=== PATIENT | male | born 1990 | race Caucasian/White ===

== ENCOUNTER 2016-12-06 13:16 | Emergency (ER) | payer OTHER ==
[2016-12-06] MEDS ORDERED: KETOROLAC 30 MG/ML 1 ML VIAL IVP STA ×2 (14:25→15:56)
[2016-12-06] MEDS ORDERED: SODIUM CHLORIDE 0.9% 1,000 ML IV STA ×2 (14:25)
--- NOTE | 2016-12-06 14:33 | ED ---
Headache HPI - General Chief Complaint: Headache Stated Complaint: Headache/x4 Time Seen by Provider: 12/06/16 14:00 Source: patient, RN notes reviewed, old records reviewed Mode of arrival: ambulatory Limitations: no limitations - History of Present Illness Initial Comments: This is a 26-year-old male with a benign past medical history states she's had a headache for the past 4 days frontal nature also some occipital pain sharp 10/ 10 severity. Associated with some nausea and numbness of both hands over the ulnar distribution fever decreased oral intake. No dysuria no hematuria he does complain of being thirsty all time and no history of polyuria no dysuria. No cough no phlegm production no earache sore throat rhinorrhea. Patient was seen at [facility] ER yesterday and Toradol Benadryl and ranitidine and sent home. Patient is back today for complaint claims as stated above. He also complains some epigastric discomfort. H MD Complaint: headache, other - Related Data Home Medications Medication Instructions Recorded Confirmed HYDROcodone/APAP 7.5-325MG [[place] 1 tab PO TID PRN 02/03/15 12/06/16 7.5-325] Albuterol Inhaler [Ventolin Hfa 1 - 2 puff INHALATION RT-Q6H PRN 12/06/16 Inhaler] Aspirin/Acetaminophen/Caffeine 2 tab PO BID PRN 12/06/16 12/06/16 [Excedrin Extra Strength Caplet] Previous Rx's Medication Instructions Recorded Cephalexin [Keflex] 500 mg PO Q6HR #40 cap 12/06/16 Hydrocodone/Acetaminophen [[place] 1 each PO Q6HR PRN #20 tab 12/06/16 5-325] Ibuprofen 800 mg PO Q6HR PRN #20 tablet 12/06/16 Allergies Allergy/AdvReac Type Severity Reaction Status Date / Time Penicillins Allergy Unknown Verified 12/06/16 14:00 Childhood Review of Systems ROS Statement: Those systems with pertinent positive or pertinent negative responses have been documented in the HPI. ROS Other: All systems not noted in ROS Statement are negative. Past Medical History Additional Past Medical History / Comment(s): migraines History of Any Multi-Drug Resistant Organisms: None Reported Past Surgical History: No Surgical Hx Reported Past Psychological History: No Psychological Hx Reported Smoking Status: Current every day smoker Past Alcohol Use History: Occasional Past Drug Use History: None Reported General Exam - General Exam Comments Initial Comments: This is a well-developed well-nourished awake alert oriented 3 patient the patient does smoke and does admit to smoking cigarettes and only to the emergency department today. Limitations: no limitations General appearance: alert, anxious Head exam: Present: atraumatic, normocephalic, normal inspection, other ( Tenderness to percussion over the frontal sinuses.) Eye exam: Present: normal appearance, PERRL, EOMI. Absent: scleral icterus, conjunctival injection, periorbital swelling ENT exam: Present: mucous membranes dry, other (Mild posterior pharyngeal hyperemia no exudates.) Neck exam: Present: normal inspection, tenderness (Mild tenderness over the left trapezius no spinous process tenderness. Range of motion no meningeal signs), full ROM. Absent: meningismus, lymphadenopathy Respiratory exam: Present: normal lung sounds bilaterally. Absent: respiratory distress, wheezes, rales, rhonchi, stridor Cardiovascular Exam: Present: normal rhythm, tachycardia, normal heart sounds. Absent: systolic murmur, diastolic murmur, rubs, gallop, clicks GI/Abdominal exam: Present: soft, normal bowel sounds, other (Obese abdomen). Absent: distended, tenderness, guarding, rebound, rigid, pulsatile mass, hernia Rectal exam: Present: deferred Extremities exam: Present: normal inspection, full ROM, normal capillary refill. Absent: tenderness, pedal edema, joint swelling, calf tenderness Back exam: Present: normal inspection Neurological exam: Present: alert, oriented X3, CN II-XII intact Psychiatric exam: Present: normal affect, normal mood Skin exam: Present: warm, dry, intact, normal color. Absent: rash Course Vital Signs 12/06/16 12/06/16 12/06/16 13:46 14:25 15:09 Temperature 100.6 F H 102 F H 100.6 F H Pulse Rate 117 H 103 H Respiratory 18 18 Rate Blood Pressure 137/78 137/68 O2 Sat by Pulse 98 99 Oximetry 12/06/16 12/06/16 16:30 17:32 Temperature 99.4 F 98.9 F Pulse Rate 89 Respiratory 16 Rate Blood Pressure 137/69 O2 Sat by Pulse 95 Oximetry - Reevaluation(s) Reevaluation #1: 12/06/16 15:58 Patient states she's gotten no relief thus far the headache. He still does have left trapezius tenderness palpation no midline neck tenderness. Reevaluation #2: 12/06/16 18:11 We did discuss smoking cessation and risks of smoking and the need to stop. He told conversation lasted 3.1 minutes Reevaluation #3: 12/06/16 18:15 The patient does take and take Keflex without any difficulty. He's only had problems with penicillin and cephalosporins. Medical Decision Making - Medical Decision Making Patient did finally get some relief from the headache we did a long discussion regarding lumbar puncture he does not want a lumbar puncture he would rather try antibiotics we did discuss that if she wasn't meningitis symptoms he would have he would rather not have a lumbar puncture. Patient was feeling improved he wants to be discharged he'll be discharged home with antibiotic and oral pain medication. He is follow-up with his doctor return when necessary - Lab Data Result diagrams: 12/06/16 14:55 12/06/16 14:55 Lab Results 12/06/16 12/06/16 12/06/16 Range/Units 14:55 14:55 14:55 WBC 3.8 (3.8-10.6) k/uL RBC 5.27 (4.30-5.90) m/uL Hgb 14.7 (13.0-17.5) gm/dL Hct 41.1 (39.0-53.0) % MCV 77.9 L (80.0-100.0) fL MCH 27.9 (25.0-35.0) pg MCHC 35.8 (31.0-37.0) g/dL RDW 13.3 (11.5-15.5) % Plt Count 112 L (150-450) k/uL Neutrophils % 65 % Lymphocytes % 27 % Monocytes % 3 % Eosinophils % 0 % Basophils % 1 % Neutrophils # 2.5 (1.3-7.7) k/uL Lymphocytes # 1.0 (1.0-4.8) k/uL Monocytes # 0.1 (0-1.0) k/uL Eosinophils # 0.0 (0-0.7) k/uL Basophils # 0.0 (0-0.2) k/uL Sodium 131 L (137-145) mmol/L Potassium 3.5 (3.5-5.1) mmol/L Chloride 97 L (98-107) mmol/L Carbon Dioxide 25 (22-30) mmol/L Anion Gap 9 mmol/L BUN 5 L (9-20) mg/dL Creatinine 0.82 (0.66-1.25) mg/dL Est GFR (MDRD) Af Amer >60 (>60 ml/min/1.73 sqM) Est GFR (MDRD) Non-Af >60 (>60 ml/min/1.73 sqM) Glucose 229 H (74-99) mg/dL Plasma Lactic Acid Selwyn 1.1 (0.7-2.0) mmol/L Calcium 8.0 L (8.4-10.2) mg/dL Magnesium 1.4 L (1.6-2.3) mg/dL Total Bilirubin 0.6 (0.2-1.3) mg/dL AST 75 H (17-59) U/L ALT 101 H (21-72) U/L Alkaline Phosphatase 35 L (38-126) U/L Total Protein 6.6 (6.3-8.2) g/dL Albumin 3.5 (3.5-5.0) g/dL Amylase <30 L (30-110) U/L Lipase 44 (23-300) U/L Urine Color Urine Appearance (Clear) Urine pH (5.0-8.0) Ur Specific Mead (1.001-1.035) Urine Protein (Negative) Urine Glucose (UA) (Negative) Urine Ketones (Negative) Urine Blood (Negative) Urine Nitrite (Negative) Urine Bilirubin (Negative) Urine Urobilinogen (<2.0) mg/dL Ur Leukocyte Esterase (Negative) Urine WBC (0-5) /hpf Urine Bacteria (None) /hpf Urine Mucus (None) /hpf 12/06/16 Range/Units 17:00 WBC (3.8-10.6) k/uL RBC (4.30-5.90) m/uL Hgb (13.0-17.5) gm/dL Hct (39.0-53.0) % MCV (80.0-100.0) fL MCH (25.0-35.0) pg MCHC (31.0-37.0) g/dL RDW (11.5-15.5) % Plt Count (150-450) k/uL Neutrophils % % Lymphocytes % % Monocytes % % Eosinophils % % Basophils % % Neutrophils # (1.3-7.7) k/uL Lymphocytes # (1.0-4.8) k/uL Monocytes # (0-1.0) k/uL Eosinophils # (0-0.7) k/uL Basophils # (0-0.2) k/uL Sodium (137-145) mmol/L Potassium (3.5-5.1) mmol/L Chloride (98-107) mmol/L Carbon Dioxide (22-30) mmol/L Anion Gap mmol/L BUN (9-20) mg/dL Creatinine (0.66-1.25) mg/dL Est GFR (MDRD) Af Amer (>60 ml/min/1.73 sqM) Est GFR (MDRD) Non-Af (>60 ml/min/1.73 sqM) Glucose (74-99) mg/dL Plasma Lactic Acid Selwyn (0.7-2.0) mmol/L Calcium (8.4-10.2) mg/dL Magnesium (1.6-2.3) mg/dL Total Bilirubin (0.2-1.3) mg/dL AST (17-59) U/L ALT (21-72) U/L Alkaline Phosphatase (38-126) U/L Total Protein (6.3-8.2) g/dL Albumin (3.5-5.0) g/dL Amylase (30-110) U/L Lipase (23-300) U/L Urine Color Yellow Urine Appearance Cloudy (Clear) Urine pH 6.0 (5.0-8.0) Ur Specific Mead 1.019 (1.001-1.035) Urine Protein 2+ H (Negative) Urine Glucose (UA) 3+ H (Negative) Urine Ketones Negative (Negative) Urine Blood Negative (Negative) Urine Nitrite Negative (Negative) Urine Bilirubin Negative (Negative) Urine Urobilinogen 3.0 (<2.0) mg/dL Ur Leukocyte Esterase Negative (Negative) Urine WBC 5 (0-5) /hpf Urine Bacteria Rare H (None) /hpf Urine Mucus Rare H (None) /hpf - Radiology Data Radiology results: report reviewed (I did review the imaging and reports there is some evidence of sinusitis brain scan looks negative x-ray show no definite acute findings there is some evidence of peribronchial cuffing patient has not really had a cough.), image reviewed Disposition Clinical Impression: Viral syndrome, Headache, Febrile illness, acute, Musculoskeletal pain Disposition: HOME SELF-CARE Condition: Good Instructions: Acute Headache (ED), Viral Syndrome (ED), Fever in Adults (ED) Prescriptions: Cephalexin [Keflex] 500 mg PO Q6HR #40 cap Hydrocodone/Acetaminophen [[place] 5-325] 1 each PO Q6HR PRN #20 tab PRN Reason: Pain Ibuprofen 800 mg PO Q6HR PRN #20 tablet PRN Reason: Pain Referrals: Talisha Booth MD [Primary Care Provider] - 1-2 days Decision Time: 15:00
[2016-12-06 15:08] LABS: Basophils % (A) 1 %; CH 28.1; CHCM 36.1; Eosinophils % (A) 0 %; HCT 41.1 % (39.0-53.0); HDW 3.16; HGB 14.7 gm/dL (13.0-17.5); Luc # (Auto) 0.14; Luc % (Auto) 4; Lymphocytes % (A) 27 %; MCH 27.9 pg (25.0-35.0); MCHC 35.8 g/dL (31.0-37.0); MCV 77.9 fL (80.0-100.0); Mean Platelet Volume 8.1; Monocytes # (A) 0.1 k/uL (0-1.0); Monocytes % (A) 3 %; Neutrophils # (A) 2.5 k/uL (1.3-7.7); Neutrophils % (A) 65 %; RBC 5.27 m/uL (4.30-5.90); RDW 13.3 % (11.5-15.5); WBC 3.8 k/uL (3.8-10.6); WBC (Perox) 3.87
[2016-12-06 15:17] LABS: ALT 101 U/L (21-72); AST 75 U/L (17-59); Alkaline Phosphatase 35 U/L (38-126); Amylase <30 U/L (30-110); Anion Gap 9 mmol/L; Blood Urea Nitrogen 5 mg/dL (9-20); Carbon Dioxide 25 mmol/L (22-30); Chloride 97 mmol/L (98-107); Glucose 229 mg/dL (74-99); Magnesium 1.4 mg/dL (1.6-2.3); Non-African American GFR(MDRD) >60 (>60 ml/min/1.73 sqM); Potassium 3.5 mmol/L (3.5-5.1); Sodium 131 mmol/L (137-145); Total Bilirubin 0.6 mg/dL (0.2-1.3); Total Protein 6.6 g/dL (6.3-8.2)
--- NOTE | 2016-12-06 15:47 | CT ---
EXAMINATION TYPE: CT brain wo con DATE OF EXAM: 12/06/2016 COMPARISON: 01/17/2013 HISTORY: 26-year-old male Migraine headache for 4 days TECHNIQUE: Examination was done in axial plane without intravenous contrast. Coronal and sagittal r econstructions performed. CT DLP: 1168.55 mGycm Automated exposure control for dose reduction was used. FINDINGS: There are some prominent calvarial artifact causing some limitation. Within this limitation, there is no evidence of acute intracranial hemorrhage, acute ischemic changes, mass, mass-effect, or extra-a xial fluid collection. There is no effacement of cerebral sulci or basal subarachnoid cisterns. The re is no hydrocephalus. There is no midline shift. Layton-white matter distinction is preserved. Mastoid air cells are well pneumatized. The facial bones will be reported separately. IMPRESSION: Calvarial artifacts causing some limitations. No acute intracranial abnormality seen. Facial bones re ported separately.
[2016-12-06] MEDS ORDERED: ORPHENADRINE 30 MG/ML 2 ML VIAL IVP STA (15:56)
[2016-12-06] MEDS ORDERED: SODIUM CHLORIDE 0.9% 500 ML IV STA (15:57)
--- NOTE | 2016-12-06 15:57 | CT ---
EXAMINATION TYPE: CT sinus wo con DATE OF EXAM: 12/06/2016 COMPARISON: NONE HISTORY: 26-year-old male with Headache x 4 TECHNIQUE: Contiguous axial scanning of the facial bones without IV contrast. Coronal reconstructions performed. CT DLP: 629.86 mGycm Automated exposure control for dose reduction was used. FINDINGS: There is very minimal mucosal thickening within the right greater than left maxillary sinuses. Additi onal trace mucosal thickening anterior left ethmoid air cells. The sphenoid and frontal sinuses are c lear. The osteomeatal complexes are patent. No air-fluid levels. No osseous erosions of the sinus valencia are reacted new osteogenesis. Orbits and globes are intact. No facial bone fractures. IMPRESSION: TRACE MUCOSAL THICKENING IN THE MAXILLARY AND LEFT ETHMOID SINUSES. NO SIGNIFICANT PARANASAL SINUS DI SEASE SEEN.
--- NOTE | 2016-12-06 16:06 | XR ---
EXAMINATION TYPE: XR chest 2V DATE OF EXAM: 12/06/2016 COMPARISON: 02/21/2014 HISTORY: 26-year-old male with a cough TECHNIQUE: PA and lateral views FINDINGS: The cardiomediastinal silhouette, aorta, and pulmonary vasculature are within normal limits. There is central peribronchial cuffing. No consolidation or pleural effusion. IMPRESSION: Peribronchial cuffing which can be seen with bronchitis or chronic asthma. No focal infiltrate.
[2016-12-06] MEDS ORDERED: fentaNYL (PF) 50 MCG/ML 2 ML AMP IV ONE (16:51)
[2016-12-06 17:27] LABS: Appearance,Urine Cloudy (Clear); Bacteria,Urine Rare /hpf; Bilirubin,Urine Negative (Negative); Glucose,Urine (UA) 3+ (Negative); Ketones,Urine Negative (Negative); Leukocyte Esterase,Urine Negative (Negative); Mucus,Urine Rare /hpf; Nitrite,Urine Negative (Negative); Particle Count 5060; Protein,Urine 2+ (Negative); Specific Gravity,Urine 1.019 (1.001-1.035); UA Billing (MACRO vs. MICRO) MICRO; WBC,Urine 5 /hpf (0-5)
[2016-12-06 17:33] VITALS: BP 137/69; PULSE 89; RESP 16; TEMP 98.9
== END 2016-12-06 18:28 | disposition home or self-care (01) ==
LOC: EC 13:16
DX: R51 Headache (principal); B34.9 Viral infection, unspecified; M79.1 Myalgia; R20.0 Anesthesia of skin; R11.0 Nausea; F17.210 Nicotine dependence, cigarettes, uncomplicated; Z88.0 Allergy status to penicillin
CPT/HCPCS: 36415; 80053; 82150; 83605; 83690; 83735; 85025; 81001; 87040; 71020; 70450; 70486; 99284; 96365; 96375 ×3; 96376; 96361 ×4; J2360; J0696; J3010; J1885

== ENCOUNTER → 2016-12-27 | Outpatient (CLI) | payer OTHER ==
--- NOTE | 2016-12-27 09:29 | MR ---
EXAMINATION TYPE: MR foot RT wo con DATE OF EXAM: 12/27/2016 COMPARISON: CT right foot April 17, 2016. HISTORY: Chronic rt foot pain, evaluation of navicular fracture 1 year ago per order. Pain and swelli ng for one year per patient with no relief after physical therapy. Standard multiplanar, multisequence MRI departmental protocol Multiplanar, multisequence images of the right foot were acquired. FINDINGS: There is redemonstration of a well-corticated 6 mm triangular shaped bone fragment along th e dorsal posterior aspect of the navicular bone consistent with osseous supranaviculare seen best on sagittal image 9. The superior aspect of the adjacent navicular bone shows prominent half-[place] shap e heterogeneous diminished T1 and increased T2 signal seen best on coronal image 33 measuring 1.2 cm transversely that has some central tiny cystic change most prominent along the mid to lateral aspect on axial images suspicious for edema and subchondral cystic change. Ossific fragmentation is felt pre sent with irregular linear T1 signal seen best on sagittal image 9 and coronal image 32. Overlying vi tamin E marker is placed at this level on sagittal image 8. No edema in the adjacent anterior calcane us or medial and middle cuneiforms is identified. No adjacent surrounding fluid is seen. Remainder of osseous structures show no suspicious edema. Normal sinus tarsi fat is present. No shruti rning fluid collection is seen. Muscle bulk is preserved. Visualized tendons and ligaments are intact . 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 On MRI t here is suggestion of new ossific fragmentation or fracture and bone marrow edema at this level noted as detailed above.
== END | disposition home or self-care (01) ==
LOC: RADMRIMAIN 07:02
PROVIDERS: ATTEND Podiatrist Foot & Ankle Surgery
DX: T14.8 Other injury of unspecified body region (principal); M25.871 Other specified joint disorders, right ankle and foot

== ENCOUNTER → 2019-03-08 | Outpatient (CLI) | payer BC ==
--- NOTE | 2019-03-08 11:11 | CT ---
EXAMINATION TYPE: CT abdomen w con DATE OF EXAM: 03/08/2019 COMPARISON: Abdominal ultrasound dated 03/08/2019 HISTORY: Splenomegaly and right upper quadrant pain. CT DLP: 1417 mGycm Automated exposure control for dose reduction was used. TECHNIQUE: Helical acquisition of images was performed from the lung bases through the top of iliac crest to include entire abdomen. CONTRAST: Performed with Oral Contrast and with IV Contrast, patient injected with 100 mL of Isovue 300. FINDINGS: LUNG BASES: Minimal atelectasis in the lingula. LIVER/GB: The liver is enlarged extending into the left upper quadrant curving lateral and posterior to the spleen creating artifactual mass on the ultrasound of 03/08/2019 at 7:01 AM. Hepatic parenchym a is diffusely hypoattenuated in comparison to that of the spleen, most commonly seen in hepatic stea tosis. This finding limits evaluation for hepatic masses. Elongated geographic probable focal fatty s paring anterior left lateral to the gallbladder fossa on image 30. No gross evidence of hepatic mass is seen. No intrahepatic biliary ductal dilatation. No cholelithiasis. PANCREAS: No significant abnormality is seen. SPLEEN: The spleen is enlarged measuring 14.5 cm in craniocaudal dimension. ADRENALS: No significant abnormality is seen. KIDNEYS: Kidneys enhance and excrete symmetrically without hydronephrosis. BOWEL: No dilated large or small bowel is seen. Appendix is partially visualized and within normal l imits of size. Stomach is largely decompressed likely accounting for the bowel wall thickening. LYMPH NODES: Scattered nonenlarged mesenteric lymph nodes. No greater than 1 cm short axis lymph nod e in the abdomen or pelvis. OSSEOUS STRUCTURES: No significant abnormality is seen. FREE AIR: No free air is visualized. IMPRESSION: 1. SPLENOMEGALY. THE MASSLIKE CRESCENTIC AREA SEEN ON THE ULTRASOUND OF THE SAME DATE LATERAL TO THE SPLEEN AND SIMPLY REPRESENTS AN ENLARGED AND ELONGATED LIVER EXTENDING INTO SELLA QUADRANT AND PLANNING LEAD IOR LEFT LATERAL TO THE SPLENIC CONTOUR. 2. NO CT EVIDENCE OF CHOLELITHIASIS IN THIS PATIENT WITH RIGHT UPPER QUADRANT PAIN. AT LEAST MODERATE DEGREE HEPATIC STEATOSIS AND HEPATOMEGALY ARE APPRECIATED.
== END ==
LOC: RADCTMAIN 10:00
PROVIDERS: ATTEND Family Medicine
DX: K76.0 Fatty (change of) liver, not elsewhere classified (principal); R16.2 Hepatomegaly with splenomegaly, not elsewhere classified; R16.0 Hepatomegaly, not elsewhere classified; R10.11 Right upper quadrant pain
CPT/HCPCS: 74160; Q9967

== ENCOUNTER → 2019-03-08 | Outpatient (CLI) | payer BC ==
--- NOTE | 2019-03-08 08:25 | US ---
EXAMINATION TYPE: US abdomen complete DATE OF EXAM: 03/08/2019 COMPARISON: NONE CLINICAL HISTORY: R10.11 ABD PAIN. RUQ pain, no symptoms on left EXAM MEASUREMENTS: Liver Length: 15.8 cm Gallbladder Wall: 0.2 cm CBD: 0.3 cm Spleen: 14.8 cm Right Kidney: 11.4 x 4.0 x 6.4 cm Left Kidney: 11.2 x 6.0 x 5.2 cm Patient of large body habitus. Technically difficult. Pancreas: Obscured by bowel gas Liver: Increased attenuation, decreased visualization of vessels suggestive of fatty infiltrate Gallbladder: wnl Evidence for sonographic Allen's sign: No CBD: wnl Spleen: enlarged, hypoechoic tissue centrally with hyperechoic tissue surrounding of unknown etiolog y. Report called to referring clinician. Right Kidney: Inferior pole obscured by bowel gas, no hydronephrosis or masses seen Left Kidney: No hydronephrosis or masses seen, partially obscured by bowel gas Upper IVC: not visualized Abd Aorta: bifurcation obscured by bowel gas IMPRESSION: 1. Increased attenuation of liver is nonspecific correlate for hepatic steatosis or hepatitis. 2. Splenomegaly. There is a large area of hypoechogenicity surrounded by hyperechoic tissue of unknow n etiology centrally within the spleen. Recommend CT of the abdomen. Cannot exclude a perisplenic hem atoma or fluid collection.
== END | disposition home or self-care (01) ==
LOC: RADUSWWP 06:51
PROVIDERS: ATTEND Family Medicine
DX: R16.1 Splenomegaly, not elsewhere classified (principal)
CPT/HCPCS: 76700

== ENCOUNTER 2019-08-13 10:10 | Emergency (ER) | payer BC ==
[2019-08-13 10:17] VITALS: RESP 18
[2019-08-13] MEDS ORDERED: SODIUM CHLORIDE 0.9% 1,000 ML IV STA (10:53)
[2019-08-13] MEDS ORDERED: ACETAMINOPHEN TAB 500 MG TAB PO STA (10:53)
[2019-08-13] MEDS ORDERED: IBUPROFEN 600 MG TAB PO STA (10:53)
--- NOTE | 2019-08-13 10:57 | ED ---
Extremity Problem HPI - General Chief complaint: Extremity Problem,Nontraumatic Stated complaint: Weakness,falls Time Seen by Provider: 08/13/19 10:36 Source: patient, RN notes reviewed, old records reviewed Mode of arrival: wheelchair - History of Present Illness Initial comments: This Patient is a 29-year-old male, whom identifies is a female. She presents today with complaints of lower extremity weakness, falls. She states that her legs just felt like "Jell-O" sometimes. was found to have a fever upon arrival Of 101.4. She has had no other complaints as to why she may have a fever. She denies any chest pain or abdominal pain. Denies any lower extremity or back pain. She states that when she fell she never hit her back or has no head injury. - Related Data Home Medications Medication Instructions Recorded Confirmed Albuterol Inhaler (Bulk) [Ventolin 1 - 2 puff INHALATION RT-Q6H PRN 12/06/16 08/13/19 Hfa Inhaler] Dextroamphetamine/Amphetamine 15 mg PO BID@0800,1500 08/13/19 08/13/19 [Adderall Xr] glyBURIDE [Diabeta] 10 mg PO BID 08/13/19 08/13/19 Previous Rx's Medication Instructions Recorded Ibuprofen [Motrin] 600 mg PO Q6HR PRN #120 tab 08/13/19 Allergies Allergy/AdvReac Type Severity Reaction Status Date / Time Penicillins Allergy Unknown Verified 08/13/19 11:38 Childhood Review of Systems ROS Statement: Those systems with pertinent positive or pertinent negative responses have been documented in the HPI. ROS Other: All systems not noted in ROS Statement are negative. Past Medical History Additional Past Medical History / Comment(s): migraines History of Any Multi-Drug Resistant Organisms: MRSA Date of last positivie culture/infection: 07/27/18 MDRO Source:: AXILLA Past Surgical History: No Surgical Hx Reported Past Psychological History: No Psychological Hx Reported Smoking Status: Current every day smoker Past Alcohol Use History: Occasional Past Drug Use History: None Reported General Exam - General Exam Comments Initial Comments: 29 year old male, no distress. General appearance: alert, in no apparent distress Head exam: Present: atraumatic, normocephalic, normal inspection Eye exam: Present: normal appearance, PERRL, EOMI. Absent: scleral icterus, conjunctival injection, periorbital swelling ENT exam: Present: normal exam, mucous membranes moist Neck exam: Present: normal inspection. Absent: tenderness, meningismus, lymphadenopathy Respiratory exam: Present: normal lung sounds bilaterally. Absent: respiratory distress, wheezes, rales, rhonchi, stridor Cardiovascular Exam: Present: regular rate, normal rhythm, normal heart sounds. Absent: systolic murmur, diastolic murmur, rubs, gallop, clicks GI/Abdominal exam: Present: soft, normal bowel sounds. Absent: distended, tenderness, guarding, rebound, rigid Extremities exam: Present: normal inspection, full ROM, normal capillary refill, other (Ambulatory, full strength in lower extremities. Normal sensation. ). Absent: tenderness, pedal edema, joint swelling, calf tenderness Back exam: Present: normal inspection Neurological exam: Present: alert, oriented X3, CN II-XII intact Psychiatric exam: Present: normal affect, normal mood Skin exam: Present: warm, dry, intact, normal color. Absent: rash Course Vital Signs 08/13/19 08/13/19 10:11 13:03 Temperature 101.4 F H 98.9 F Pulse Rate 125 H 88 Respiratory 18 18 Rate Blood Pressure 114/81 114/80 O2 Sat by Pulse 100 98 Oximetry Medical Decision Making - Medical Decision Making Patient is a 29-year-old male, identifying is a female. Presents today with fever, and states that lower extremities felt weak and they were going to give out. Patient states that it seemed to start yesterday. She denies any falls or trauma. No back pain or any pain at this time. Denies any headache. Patient had a fever of 101.4. No exposure to any sick contacts that she is aware of. Patient's blood work was reviewed. Evidence of leukopenia, low platelets, Pat ient did have blood cultures obtained. Patient's COVID testing and influenza testing are negative at this time. On reevaluation after Motrin Tylenol and IV fluids Patient is feeling somewhat better. Patient is ambulatory , complaining of being hungry and walking up and down the mae with no distress. I discussed that of lab work is seems to be a viral illness. I discussed the case with Dr. Keyur drummond. I discussed if there is any further worsening symptoms including persistent fever and weakness or other complaints return for reevaluation. - Lab Data Result diagrams: 08/13/19 11:02 08/13/19 11:02 Lab Results 08/13/19 08/13/19 08/13/19 Range/Units 11:02 11:02 11:02 WBC 3.6 L (3.8-10.6) k/uL RBC 3.97 L (4.30-5.90) m/uL Hgb 13.1 (13.0-17.5) gm/dL Hct 34.5 L (39.0-53.0) % MCV 87.0 (80.0-100.0) fL MCH 33.1 (25.0-35.0) pg MCHC 38.1 H (31.0-37.0) g/dL RDW 22.9 H (11.5-15.5) % Plt Count 94 L (150-450) k/uL Manual Slide Review Performed Poikilocytosis Slight Anisocytosis Moderate Sodium 135 L (137-145) mmol/L Potassium 4.5 (3.5-5.1) mmol/L Chloride 104 (98-107) mmol/L Carbon Dioxide 21 L (22-30) mmol/L Anion Gap 10 mmol/L BUN 16 (9-20) mg/dL Creatinine 0.72 (0.66-1.25) mg/dL Est GFR (CKD-EPI)AfAm >90 (>60 ml/min/1.73 sqM) Est GFR (CKD-EPI)NonAf >90 (>60 ml/min/1.73 sqM) Glucose 250 H (74-99) mg/dL Calcium 8.7 (8.4-10.2) mg/dL Total Bilirubin 0.9 (0.2-1.3) mg/dL AST 57 (17-59) U/L ALT 54 H (4-49) U/L Alkaline Phosphatase 49 (38-126) U/L Total Protein 8.1 (6.3-8.2) g/dL Albumin 3.8 (3.5-5.0) g/dL Urine Color Urine Appearance (Clear) Urine pH (5.0-8.0) Ur Specific Bryant (1.001-1.035) Urine Protein (Negative) Urine Glucose (UA) (Negative) Urine Ketones (Negative) Urine Blood (Negative) Urine Nitrite (Negative) Urine Bilirubin (Negative) Urine Urobilinogen (<2.0) mg/dL Ur Leukocyte Esterase (Negative) Urine RBC (0-5) /hpf Urine WBC (0-5) /hpf Ur Squamous Epith Cells (0-4) /hpf Urine Bacteria (None) /hpf Urine Mucus (None) /hpf Coronavirus (PCR) Not Detected (Not Detectd) Influenza Type A RNA Not Detected (Not Detectd) Influenza Type B (PCR) Not Detected (Not Detectd) 08/13/19 Range/Units 11:02 WBC (3.8-10.6) k/uL RBC (4.30-5.90) m/uL Hgb (13.0-17.5) gm/dL Hct (39.0-53.0) % MCV (80.0-100.0) fL MCH (25.0-35.0) pg MCHC (31.0-37.0) g/dL RDW (11.5-15.5) % Plt Count (150-450) k/uL Manual Slide Review Poikilocytosis Anisocytosis Sodium (137-145) mmol/L Potassium (3.5-5.1) mmol/L Chloride (98-107) mmol/L Carbon Dioxide (22-30) mmol/L Anion Gap mmol/L BUN (9-20) mg/dL Creatinine (0.66-1.25) mg/dL Est GFR (CKD-EPI)AfAm (>60 ml/min/1.73 sqM) Est GFR (CKD-EPI)NonAf (>60 ml/min/1.73 sqM) Glucose (74-99) mg/dL Calcium (8.4-10.2) mg/dL Total Bilirubin (0.2-1.3) mg/dL AST (17-59) U/L ALT (4-49) U/L Alkaline Phosphatase (38-126) U/L Total Protein (6.3-8.2) g/dL Albumin (3.5-5.0) g/dL Urine Color Yellow Urine Appearance Clear (Clear) Urine pH 6.0 (5.0-8.0) Ur Specific Bryant 1.024 (1.001-1.035) Urine Protein 1+ H (Negative) Urine Glucose (UA) 2+ H (Negative) Urine Ketones Negative (Negative) Urine Blood Negative (Negative) Urine Nitrite Negative (Negative) Urine Bilirubin Negative (Negative) Urine Urobilinogen 2.0 (<2.0) mg/dL Ur Leukocyte Esterase Negative (Negative) Urine RBC 1 (0-5) /hpf Urine WBC 4 (0-5) /hpf Ur Squamous Epith Cells 1 (0-4) /hpf Urine Bacteria Rare H (None) /hpf Urine Mucus Many H (None) /hpf Coronavirus (PCR) (Not Detectd) Influenza Type A RNA (Not Detectd) Influenza Type B (PCR) (Not Detectd) - Radiology Data Radiology results: report reviewed Chest x-ray is negative for any acute cardiopulmonary process. Disposition Clinical Impression: Viral syndrome Disposition: HOME SELF-CARE Condition: Good Instructions (If sedation given, give patient instructions): Viral Syndrome ( ED) Additional Instructions: Please use medication as discussed. Please follow up with family doctor if symptoms have not improved over the next two days. Please return to the emergency room if your symptoms increase or worsen or for any other concerns. Prescriptions: Ibuprofen [Motrin] 600 mg PO Q6HR PRN #120 tab PRN Reason: Pain Is patient prescribed a controlled substance at d/c from ED?: No Referrals: Talisha Booth MD [Primary Care Provider] - 1-2 days Time of Disposition: 12:53
[2019-08-13 11:28] LABS: Anisocytosis Moderate; HCT 34.5 % (39.0-53.0); HGB 13.1 gm/dL (13.0-17.5); MCH 33.1 pg (25.0-35.0); Mean Platelet Volume 9.7; Poikilocytosis Slight; RBC 3.97 m/uL (4.30-5.90); RDW 22.9 % (11.5-15.5); WBC 3.6 k/uL (3.8-10.6)
[2019-08-13 11:35] LABS: ALT 54 U/L (4-49); AST 57 U/L (17-59); African American GFR (CKD) >90 (>60 ml/min/1.73 sqM); Albumin 3.8 g/dL (3.5-5.0); Alkaline Phosphatase 49 U/L (38-126); Anion Gap 10 mmol/L; Blood Urea Nitrogen 16 mg/dL (9-20); Calcium 8.7 mg/dL (8.4-10.2); Carbon Dioxide 21 mmol/L (22-30); Chloride 104 mmol/L (98-107); Glucose 250 mg/dL (74-99); Non-African American GFR(CKD) >90 (>60 ml/min/1.73 sqM); Potassium 4.5 mmol/L (3.5-5.1); Sodium 135 mmol/L (137-145); Total Bilirubin 0.9 mg/dL (0.2-1.3); Total Protein 8.1 g/dL (6.3-8.2)
[2019-08-13 11:43] LABS: MCHC 38.1 g/dL (31.0-37.0)
[2019-08-13 11:47] LABS: Appearance,Urine Clear (Clear); Bacteria,Urine Rare /hpf; Bilirubin,Urine Negative (Negative); Blood,Urine Negative (Negative); Color,Urine Yellow; Glucose,Urine (UA) 2+ (Negative); Ketones,Urine Negative (Negative); Leukocyte Esterase,Urine Negative (Negative); Mucus,Urine Many /hpf; Nitrite,Urine Negative (Negative); Protein,Urine 1+ (Negative); RBC,Urine 1 /hpf (0-5); Specific Gravity,Urine 1.024 (1.001-1.035); Squamous Epithelial Cell,Urine 1 /hpf (0-4); WBC,Urine 4 /hpf (0-5)
--- NOTE | 2019-08-13 11:50 | XR ---
EXAMINATION TYPE: XR chest 1V portable DATE OF EXAM: 08/13/2019 HISTORY: fever. REFERENCE: Previous study dated 12/06/2016. FINDINGS: Lungs remain clear. Pleural spaces are clear. The heart is not enlarged. IMPRESSION: NO ACTIVE INTRATHORACIC DISEASE.
[2019-08-13 11:57] LABS: Platelet Count 94 k/uL (150-450)
[2019-08-13 13:08] VITALS: BP 114/80; PULSE 88; TEMP 98.9
== END 2019-08-13 13:03 | disposition home or self-care (01) ==
LOC: EC 10:10
DX: B34.9 Viral infection, unspecified (principal); F17.200 Nicotine dependence, unspecified, uncomplicated; Z79.84 Long term (current) use of oral hypoglycemic drugs; Z79.899 Other long term (current) drug therapy; Z88.0 Allergy status to penicillin
CPT/HCPCS: 36415; 71045; 80053; 81001; 85025; 87040; 87077; 87186; 87502; 87635; 96360; 99285

== ENCOUNTER 2019-08-14 08:26 | Emergency (ER) | payer BC ==
[2019-08-14] MEDS ORDERED: SODIUM CHLORIDE 0.9% 1,000 ML IV STA ×2 (08:47)
[2019-08-14 08:48] VITALS: RESP 18; TEMP 98.8
--- NOTE | 2019-08-14 08:54 | ED ---
General Adult HPI - General Chief complaint: Weakness Stated complaint: weakness Time Seen by Provider: 08/14/19 08:26 Source: patient, RN notes reviewed, old records reviewed Mode of arrival: wheelchair Limitations: no limitations - History of Present Illness Initial comments: Patient is a 29-year-old male, whom prefers to identify as female. Patient pr efers to be called "Lacey" who presents emergency Department today for reevaluation after being called last night for an abnormal blood culture results today. Patient was seen in the emergency department yesterday and reported some transient lower extremity weakness turning 2 days ago. States occasionally with standing his legs felt weak and gave out. He had a fever in the emergency department yesterday. He was neutropenic, Flu and covid testing were negative. She denied any significant complaints in relation to the fever. He reports he has a chronic smoker's cough, but denies any abdominal pain diarrhea or rashes. He reports to history of constipation. Denies IV Drug use or history of immunocompromising infections. She denies any history of sick contacts. Patient had gram-negative rods evident in blood culture from yesterday and was instructed to return. Discussed that this is concerning for possible Campylobacter infection which could relate to possible Guillain-Kaur syndrome explaining his transient lower extremity weakness yesterday. He states that since yesterday in the emergency department he's been feeling better. He denies any falls or current leg weakness. States that he has had no further fevers. - Related Data Home Medications Medication Instructions Recorded Confirmed Albuterol Inhaler (Bulk) [Ventolin 1 - 2 puff INHALATION RT-Q6H PRN 12/06/16 08/14/19 Hfa Inhaler] Dextroamphetamine/Amphetamine 15 mg PO BID@0800,1500 08/13/19 08/14/19 [Adderall Xr] glyBURIDE [Diabeta] 10 mg PO BID 08/13/19 08/14/19 Previous Rx's Medication Instructions Recorded Ibuprofen [Motrin] 600 mg PO Q6HR PRN #120 tab 08/13/19 Levofloxacin [Levaquin] 750 mg PO DAILY #10 tab 08/14/19 Allergies Allergy/AdvReac Type Severity Reaction Status Date / Time Penicillins Allergy Unknown Verified 08/14/19 09:49 Childhood Review of Systems ROS Statement: Those systems with pertinent positive or pertinent negative responses have been documented in the HPI. ROS Other: All systems not noted in ROS Statement are negative. Past Medical History Additional Past Medical History / Comment(s): migraines History of Any Multi-Drug Resistant Organisms: MRSA Date of last positivie culture/infection: 07/27/18 MDRO Source:: AXILLA Past Surgical History: No Surgical Hx Reported Past Psychological History: No Psychological Hx Reported Smoking Status: Current every day smoker Past Alcohol Use History: Rare Past Drug Use History: None Reported General Exam - General Exam Comments Initial Comments: 29 year old male, identifies as female. Prefers to be called Lacey. No acute distress. Limitations: no limitations General appearance: alert, in no apparent distress Head exam: Present: atraumatic, normocephalic, normal inspection Eye exam: Present: normal appearance, PERRL, EOMI. Absent: scleral icterus, conjunctival injection, periorbital swelling ENT exam: Present: normal exam, mucous membranes moist Neck exam: Present: normal inspection. Absent: tenderness, meningismus, lymphadenopathy Respiratory exam: Present: normal lung sounds bilaterally. Absent: respiratory distress, wheezes, rales, rhonchi, stridor Cardiovascular Exam: Present: regular rate, normal rhythm, normal heart sounds. Absent: systolic murmur, diastolic murmur, rubs, gallop, clicks GI/Abdominal exam: Present: soft, normal bowel sounds. Absent: distended, tenderness, guarding, rebound, rigid Extremities exam: Present: normal inspection, full ROM, normal capillary refill. Absent: tenderness, pedal edema, joint swelling, calf tenderness Back exam: Present: normal inspection Neurological exam: Present: alert, oriented X3, CN II-XII intact Psychiatric exam: Present: normal affect, normal mood Skin exam: Present: warm, dry, intact, normal color. Absent: rash Course Vital Signs 08/14/19 08/14/19 08:42 08:48 Temperature 98.8 F Pulse Rate 126 H Pulse Rate [ 116 H Supine Credit Coordinator] Respiratory 18 Rate Blood Pressure 141/98 O2 Sat by Pulse 100 Oximetry - Reevaluation(s) Reevaluation #1: 08/14/19 10:24 Patient was reevaluated this time, when he was seen by Dr. Ramos stated that he preferred not to be admitted and Dr. Alvares stated that this could be appropriate with treatment with oral antibiotics, this was done without seeing lab work. Reevaluation #2: 08/14/19 10:25 Patient informed that he has abnormal lab work including leukopenia, low platelet count. I discussed with the concern for gram-negative bacteremia be concerning for possible Guillain-Kaur syndrome and discussed the risk of paralysis, or severe sepsis and even . He stated he does not want to stay in the hospital and takes responsibility for his health. I ambulated the Patient around the emergency department he was able to walk without difficulty. Patient states he is concerned to be admitted due to COVID exposure in hospital. I discussed that the risk of and paralysis are higher concern and priority based off of his history of symptoms and lab work. He continues to stated that he refuses to stay in the hospital. Patient will be signing AGAINST MEDICAL ADVICE. 08/14/19 10:25 Medical Decision Making - Medical Decision Making This is a 29-year-old male, deficits female. Presented today after abnormal blood culture results from yesterday. He had abnormal blood culture with gram- negative bacilli. He complained of some intermittent leg weakness for the past 2 days denies any recent falls or leg weakness today. I discussed the concern for gram-negative blood culture and intermittent leg weakness this could be concerning for Guillain-Kaur syndrome. He has no other complaints of symptoms which may or source for this fever yesterday and positive blood culture result. Denies any history of immunocompromising illnesses. Today Patient has full strength in his lower extremities. and able to ambulate without difficulty at this time. Denies any significant back pain. Patient denies emergency department tachycardic., had full sepsis work up again today. He initially did not want to come back for further evaluation and was refusing to stay. He then was evaluated by my attending Dr. Alvares, whom stated to patient he could try outpatient therapy for positive blood cultures if he was feeling well today. This was before labs returned today. Patient's lab work today shows evidence of leukopenia with white blood cell count of 2.9. Platelets are low at 71. This is a decrease from yesterday. I informed Patient of these abnormal results and was advised against leaving the hospital and want to admit the Patient for repeat blood culture results and start IV antibiotic. Patient stated that he was told he would not say have to stay in the hospital by my attending and states he will now continue to refuse this. I discussed multiple times the risk of , possible paralysis if this were to recur with leg weakness and truly was Guillain-Kaur syndrome. Patient is adamant that he will not stay in the hospital. I discussed that we can start the Patient on Levaquin in emergency department and was given IV fluids. Multiple times I implored the patient to stay in the hospital for admission for positive blood culture, leukopenia, sepsis, and concern for Lomeli Arcadia syndrome and he refuses and understands the risks. Discussed return parameters. - Lab Data Result diagrams: 08/14/19 09:00 08/14/19 09:00 Lab Results 08/14/19 08/14/19 08/14/19 Range/Units 09:00 09:00 09:00 WBC 2.9 L (3.8-10.6) k/uL RBC 4.22 L (4.30-5.90) m/uL Hgb 12.9 L (13.0-17.5) gm/dL Hct 36.2 L (39.0-53.0) % MCV 85.8 (80.0-100.0) fL MCH 30.5 (25.0-35.0) pg MCHC 35.5 (31.0-37.0) g/dL RDW 19.9 H (11.5-15.5) % Plt Count 73 L (150-450) k/uL Neutrophils % 79 % Lymphocytes % 12 % Monocytes % 5 % Eosinophils % 1 % Basophils % 0 % Neutrophils # 2.3 (1.3-7.7) k/uL Lymphocytes # 0.4 L (1.0-4.8) k/uL Monocytes # 0.2 (0-1.0) k/uL Eosinophils # 0.0 (0-0.7) k/uL Basophils # 0.0 (0-0.2) k/uL Poikilocytosis Slight Anisocytosis Slight PT 10.5 (9.0-12.0) sec INR 1.0 (<1.2) APTT 25.8 (22.0-30.0) sec Sodium 132 L (137-145) mmol/L Potassium 4.0 (3.5-5.1) mmol/L Chloride 105 (98-107) mmol/L Carbon Dioxide 19 L (22-30) mmol/L Anion Gap 8 mmol/L BUN 18 (9-20) mg/dL Creatinine 0.84 (0.66-1.25) mg/dL Est GFR (CKD-EPI)AfAm >90 (>60 ml/min/1.73 sqM) Est GFR (CKD-EPI)NonAf >90 (>60 ml/min/1.73 sqM) Glucose 378 H (74-99) mg/dL Plasma Lactic Acid Selwyn (0.7-2.0) mmol/L Calcium 8.4 (8.4-10.2) mg/dL Phosphorus 3.5 (2.5-4.5) mg/dL Magnesium 1.6 (1.6-2.3) mg/dL Total Bilirubin 1.0 (0.2-1.3) mg/dL AST 51 (17-59) U/L ALT 45 (4-49) U/L Alkaline Phosphatase 65 (38-126) U/L Total Protein 8.1 (6.3-8.2) g/dL Albumin 3.6 (3.5-5.0) g/dL 08/14/19 Range/Units 09:00 WBC (3.8-10.6) k/uL RBC (4.30-5.90) m/uL Hgb (13.0-17.5) gm/dL Hct (39.0-53.0) % MCV (80.0-100.0) fL MCH (25.0-35.0) pg MCHC (31.0-37.0) g/dL RDW (11.5-15.5) % Plt Count (150-450) k/uL Neutrophils % % Lymphocytes % % Monocytes % % Eosinophils % % Basophils % % Neutrophils # (1.3-7.7) k/uL Lymphocytes # (1.0-4.8) k/uL Monocytes # (0-1.0) k/uL Eosinophils # (0-0.7) k/uL Basophils # (0-0.2) k/uL Poikilocytosis Anisocytosis PT (9.0-12.0) sec INR (<1.2) APTT (22.0-30.0) sec Sodium (137-145) mmol/L Potassium (3.5-5.1) mmol/L Chloride (98-107) mmol/L Carbon Dioxide (22-30) mmol/L Anion Gap mmol/L BUN (9-20) mg/dL Creatinine (0.66-1.25) mg/dL Est GFR (CKD-EPI)AfAm (>60 ml/min/1.73 sqM) Est GFR (CKD-EPI)NonAf (>60 ml/min/1.73 sqM) Glucose (74-99) mg/dL Plasma Lactic Acid Selwyn 2.0 (0.7-2.0) mmol/L Calcium (8.4-10.2) mg/dL Phosphorus (2.5-4.5) mg/dL Magnesium (1.6-2.3) mg/dL Total Bilirubin (0.2-1.3) mg/dL AST (17-59) U/L ALT (4-49) U/L Alkaline Phosphatase (38-126) U/L Total Protein (6.3-8.2) g/dL Albumin (3.5-5.0) g/dL 08/14/19 09:15 EKG performed at 907 shows sinus tachycardia, otherwise normal EKG. Ventricular rate of 115 bpm. Is 144 ms. QS duration is 82 ms. QT QTc is 308/426 ms. Disposition Clinical Impression: Positive blood culture, Sepsis, Transient leg weakness, Leukopenia, Anemia with low platelet count Disposition: Left Against Medical Advice Condition: Stable Instructions (If sedation given, give patient instructions): Guillain-Arcadia Syndrome (ED), Bacteremia (ED) Additional Instructions: You understand that you should be admitted to the hospital but are refusing admission and leaving against medical advice. Patient advised to follow-up with primary care physician in 1-2 days. Take the antibiotic as prescribed. Return to the emergency department if any alarming signs or symptoms occur including high fevers, worsening weakness or lower extremity weakness or paralysis. Prescriptions: Levofloxacin [Levaquin] 750 mg PO DAILY #10 tab Is patient prescribed a controlled substance at d/c from ED?: No Referrals: Talisha Booth MD [Primary Care Provider] - 1-2 days Time of Disposition: 10:41
[2019-08-14] MEDS ORDERED: ACETAMINOPHEN TAB 500 MG TAB PO STA (08:59)
[2019-08-14] MEDS ORDERED: IBUPROFEN 600 MG TAB PO STA (08:59)
[2019-08-14] MEDS ORDERED: cefTRIAXone IN SWFI 1,000 MG/10 ML SYRINGE IVP STA (09:09)
[2019-08-14] MEDS ORDERED: LEVOFLOXACIN 750MG-D5W PMX 750 MG in DEXTROSE/WATER 1 150ML.BAG IVPB STA (09:09)
[2019-08-14 09:20] LABS: Partial Thromboplastin Time 25.8 sec (22.0-30.0); Prothrombin Time 10.5 sec (9.0-12.0)
[2019-08-14 09:34] LABS: Anisocytosis Slight; Basophils % (A) 0 %; Eosinophils % (A) 1 %; HCT 36.2 % (39.0-53.0); HGB 12.9 gm/dL (13.0-17.5); Lymphocytes # (A) 0.4 k/uL (1.0-4.8); Lymphocytes % (A) 12 %; MCH 30.5 pg (25.0-35.0); MCHC 35.5 g/dL (31.0-37.0); MCV 85.8 fL (80.0-100.0); Mean Platelet Volume 10.7; Monocytes # (A) 0.2 k/uL (0-1.0); Monocytes % (A) 5 %; Neutrophils # (A) 2.3 k/uL (1.3-7.7); Neutrophils % (A) 79 %; Poikilocytosis Slight; RBC 4.22 m/uL (4.30-5.90); RDW 19.9 % (11.5-15.5); WBC 2.9 k/uL (3.8-10.6)
[2019-08-14 09:36] LABS: ALT 45 U/L (4-49); AST 51 U/L (17-59); African American GFR (CKD) >90 (>60 ml/min/1.73 sqM); Albumin 3.6 g/dL (3.5-5.0); Alkaline Phosphatase 65 U/L (38-126); Anion Gap 8 mmol/L; Blood Urea Nitrogen 18 mg/dL (9-20); Calcium 8.4 mg/dL (8.4-10.2); Carbon Dioxide 19 mmol/L (22-30); Chloride 105 mmol/L (98-107); Glucose 378 mg/dL (74-99); Magnesium 1.6 mg/dL (1.6-2.3); Non-African American GFR(CKD) >90 (>60 ml/min/1.73 sqM); Phosphorus 3.5 mg/dL (2.5-4.5); Sodium 132 mmol/L (137-145); Total Protein 8.1 g/dL (6.3-8.2)
[2019-08-14 09:56] LABS: Platelet Count 73 k/uL (150-450)
[2019-08-14 10:44] VITALS: BP 157/97; PULSE 109
== END 2019-08-14 11:08 | disposition left against medical advice (07) ==
LOC: EC 08:26
DX: Z03.818 Encounter for observation for suspected exposure to other biological agents ruled out (principal); A41.9 Sepsis, unspecified organism; D72.819 Decreased white blood cell count, unspecified; D64.9 Anemia, unspecified; D69.6 Thrombocytopenia, unspecified; R53.1 Weakness; R05 Cough; F17.200 Nicotine dependence, unspecified, uncomplicated; Z86.14 Personal history of Methicillin resistant Staphylococcus aureus infection; Z79.84 Long term (current) use of oral hypoglycemic drugs; Z79.899 Other long term (current) drug therapy; Z88.0 Allergy status to penicillin; Z53.29 Procedure and treatment not carried out because of patient's decision for other reasons
CPT/HCPCS: 36415; 93005; 80053; 83605; 83735; 84100; 85025; 85610; 85730; 87040; 99285; 96365; 96366; 96375; J0696; J1956; 87077; 87186

== ENCOUNTER 2019-08-15 12:09 | Emergency (ER) | payer BC ==
[2019-08-15 12:16] VITALS: TEMP 97.5
[2019-08-15] MEDS ORDERED: SODIUM CHLORIDE 0.9% 1,000 ML IV STA (12:38)
--- NOTE | 2019-08-15 12:44 | ED ---
General Adult HPI - General Chief complaint: Dizziness Stated complaint: recheck- abn labs Time Seen by Provider: 08/15/19 12:18 Source: patient Mode of arrival: ambulatory - History of Present Illness Initial comments: Patient is a 29-year-old male, who identifies is a female, likes to be called Jovita, presenting to the emergency department for reevaluation and possible admission. This is patient's third visit to the ER in a row. Patient was initially seen 2 days ago for some transient lower extremity weakness and a fever. He was found to be neutropenic, influenza and COVID were negative. Patient was called back to the ER yesterday after a positive blood culture resul t. Patient was found to have gram-negative rods/Salmonella in blood culture. Patient was reexamined yesterday and patient left AMA. They wanted patient to stay for IV antibiotics. Patient refused. Patient was started on outpatient Levaquin. Patient states he called his doctor today who again told him she should go back to the ER for IV antibiotics, so patient came back in. Patient states she has no new symptoms. She denies fever, chills, headache, short of breath, cough, abdominal pain. She does admit to very mild nausea. She denies muscle weakness. She has no other complaints at this time. Upon arrival to the ER, patient slightly tachycardia at 112, rest of vitals normal, afebrile. - Related Data Home Medications Medication Instructions Recorded Confirmed Albuterol Inhaler (Bulk) [Ventolin 1 - 2 puff INHALATION RT-Q6H PRN 12/06/16 08/14/19 Hfa Inhaler] Dextroamphetamine/Amphetamine 15 mg PO BID@0800,1500 08/13/19 08/14/19 [Adderall Xr] glyBURIDE [Diabeta] 10 mg PO BID 08/13/19 08/14/19 Previous Rx's Medication Instructions Recorded Ibuprofen [Motrin] 600 mg PO Q6HR PRN #120 tab 08/13/19 Levofloxacin [Levaquin] 750 mg PO DAILY #10 tab 08/14/19 Ciprofloxacin HCl [Cipro] 500 mg PO BID 10 Days #20 tab 08/15/19 Allergies Allergy/AdvReac Type Severity Reaction Status Date / Time Penicillins Allergy Unknown Verified 08/15/19 12:16 Childhood Review of Systems ROS Statement: Those systems with pertinent positive or pertinent negative responses have been documented in the HPI. ROS Other: All systems not noted in ROS Statement are negative. Past Medical History Additional Past Medical History / Comment(s): migraines History of Any Multi-Drug Resistant Organisms: MRSA Date of last positivie culture/infection: 07/27/18 MDRO Source:: AXILLA Past Surgical History: No Surgical Hx Reported Past Psychological History: No Psychological Hx Reported Smoking Status: Current every day smoker Past Alcohol Use History: Rare Past Drug Use History: None Reported General Exam - General Exam Comments Initial Comments: GENERAL: Well-appearing, well-nourished and in no acute distress. HEAD: Atraumatic, normocephalic. EYES: Pupils equal round and reactive to light, extraocular movements intact, sclera anicteric, conjunctiva are normal. ENT: TMs normal, nares patent, oropharynx clear without exudates. Moist mucous membranes. NECK: Normal range of motion, supple without lymphadenopathy or JVD. LUNGS: Breath sounds clear to auscultation bilaterally and equal. No wheezes rales or rhonchi. HEART: Slightly tachycardia rate and rhythm without murmurs, rubs or gallops. ABDOMEN: Soft, nontender, normoactive bowel sounds. No guarding, no rebound. No masses appreciated. : Deferred EXTREMITIES: Normal range of motion, no pitting or edema. No clubbing or cyanosis. NEUROLOGICAL: Cranial nerves II through XII grossly intact. Normal speech, normal gait. Strength is 5 out of 5 in upper and lower extremities. Patellar and Achilles reflexes equal and bilateral. PSYCH: Normal mood, normal affect. SKIN: Warm, Dry, normal turgor, no rashes or lesions noted. Course Vital Signs 08/15/19 08/15/19 12:13 13:17 Temperature 97.5 F L Pulse Rate 112 H 96 Respiratory 18 16 Rate Blood Pressure 112/70 131/86 O2 Sat by Pulse 100 99 Oximetry Medical Decision Making - Medical Decision Making Patient is a 29-year-old male, identifies as female, presenting for a recheck with abnormal blood culture. Culture is positive for gram negatives bacilli, salmonella series. Patient states she called her doctor today and urged her to go back into the ER. Patient has no new symptoms. She has been afebrile. Mild nausea. Exam is unremarkable. Strength is 5 out of 5 upper and lower extremities. Vitals are normal. Patient continues to be neutropenic, no other significant abnormalities. I spoke with Dr. Arriaga, infectious disease, and he suggested switching patient to Cipro twice a day for 10 days. He is okay with patient being discharged. Patient will follow up with Dr. Arriaga. Patient is in agreement with this plan of care. Return parameters were discussed with the patient and she verbalized understanding. Case discussed with Dr. Johnson. - Lab Data Result diagrams: 08/15/19 12:50 08/15/19 12:50 Lab Results 08/15/19 08/15/19 08/15/19 Range/Units 12:50 12:50 12:50 WBC 2.0 L (3.8-10.6) k/uL RBC 3.73 L (4.30-5.90) m/uL Hgb 12.0 L (13.0-17.5) gm/dL Hct 33.2 L (39.0-53.0) % MCV 89.2 (80.0-100.0) fL MCH 32.2 (25.0-35.0) pg MCHC 36.2 (31.0-37.0) g/dL RDW 23.0 H (11.5-15.5) % Plt Count 73 L (150-450) k/uL Neutrophils % 61 % Lymphocytes % 28 % Monocytes % 4 % Eosinophils % 3 % Basophils % 0 % Neutrophils # 1.2 L (1.3-7.7) k/uL Lymphocytes # 0.6 L (1.0-4.8) k/uL Monocytes # 0.1 (0-1.0) k/uL Eosinophils # 0.1 (0-0.7) k/uL Basophils # 0.0 (0-0.2) k/uL Poikilocytosis Slight Anisocytosis Moderate Sodium 136 L (137-145) mmol/L Potassium 4.0 (3.5-5.1) mmol/L Chloride 107 (98-107) mmol/L Carbon Dioxide 20 L (22-30) mmol/L Anion Gap 9 mmol/L BUN 16 (9-20) mg/dL Creatinine 0.74 (0.66-1.25) mg/dL Est GFR (CKD-EPI)AfAm >90 (>60 ml/min/1.73 sqM) Est GFR (CKD-EPI)NonAf >90 (>60 ml/min/1.73 sqM) Glucose 318 H (74-99) mg/dL Plasma Lactic Acid [place] 1.1 (0.7-2.0) mmol/L Calcium 8.3 L (8.4-10.2) mg/dL Total Bilirubin 1.0 (0.2-1.3) mg/dL AST 61 H (17-59) U/L ALT 44 (4-49) U/L Alkaline Phosphatase 73 (38-126) U/L Total Protein 7.4 (6.3-8.2) g/dL Albumin 3.2 L (3.5-5.0) g/dL Disposition Clinical Impression: Positive blood culture, Leukopenia, Nausea Disposition: HOME SELF-CARE Condition: Stable Instructions (If sedation given, give patient instructions): Neutropenia (ED) Additional Instructions: Please return to the Emergency Department if symptoms worsen or any other concerns. Take antibiotic as prescribed. Follow-up with Dr. Arriaga. Prescriptions: Ciprofloxacin HCl [Cipro] 500 mg PO BID 10 Days #20 tab Is patient prescribed a controlled substance at d/c from ED?: No Referrals: Talisha Booth MD [Primary Care Provider] - 1-2 days Rafael Arriaga MD [STAFF PHYSICIAN] - 1-2 days
[2019-08-15 13:01] LABS: Anisocytosis Moderate; Basophils % (A) 0 %; Eosinophils # (A) 0.1 k/uL (0-0.7); Eosinophils % (A) 3 %; HCT 33.2 % (39.0-53.0); Lymphocytes # (A) 0.6 k/uL (1.0-4.8); Lymphocytes % (A) 28 %; MCH 32.2 pg (25.0-35.0); MCHC 36.2 g/dL (31.0-37.0); MCV 89.2 fL (80.0-100.0); Monocytes # (A) 0.1 k/uL (0-1.0); Monocytes % (A) 4 %; Neutrophils # (A) 1.2 k/uL (1.3-7.7); Neutrophils % (A) 61 %; Poikilocytosis Slight; RBC 3.73 m/uL (4.30-5.90)
[2019-08-15 13:06] LABS: Platelet Count 73 k/uL (150-450)
[2019-08-15 13:15] LABS: ALT 44 U/L (4-49); AST 61 U/L (17-59); African American GFR (CKD) >90 (>60 ml/min/1.73 sqM); Albumin 3.2 g/dL (3.5-5.0); Alkaline Phosphatase 73 U/L (38-126); Anion Gap 9 mmol/L; Blood Urea Nitrogen 16 mg/dL (9-20); Calcium 8.3 mg/dL (8.4-10.2); Carbon Dioxide 20 mmol/L (22-30); Chloride 107 mmol/L (98-107); Glucose 318 mg/dL (74-99); Non-African American GFR(CKD) >90 (>60 ml/min/1.73 sqM); Sodium 136 mmol/L (137-145); Total Protein 7.4 g/dL (6.3-8.2)
[2019-08-15 13:22] VITALS: BP 131/86; PULSE 96; RESP 16
== END 2019-08-15 14:12 | disposition home or self-care (01) ==
LOC: EC 12:09
DX: D72.819 Decreased white blood cell count, unspecified (principal); A41.59 Other Gram-negative sepsis; A02.8 Other specified salmonella infections; R11.0 Nausea; F17.200 Nicotine dependence, unspecified, uncomplicated; Z88.0 Allergy status to penicillin; Z86.14 Personal history of Methicillin resistant Staphylococcus aureus infection
CPT/HCPCS: 36415; 80053; 83605; 85025; 96360; 99284

== ENCOUNTER → 2019-08-18 | Outpatient (CLI) | payer BC ==
--- NOTE | 2019-08-19 08:38 | CT ---
EXAMINATION TYPE: CT abdomen pelvis w con DATE OF EXAM: 08/18/2019 COMPARISON: 03/08/2019 HISTORY: 29-year-old male with abdominal pain TECHNIQUE: Contiguous axial scanning of the abdomen and pelvis following administration of 100 ml Iso tiera 300 IV contrast. Delayed images through the kidneys and coronal/sagittal reconstructions perform ed. CT DLP: 2047.3 mGycm Automated exposure control for dose reduction was used. FINDINGS: Heart normal size without pericardial effusion. Lung bases clear without pleural effusion. Liver mildly enlarged at 18.7 cm craniocaudal. Again, extension of the left lobe into the left upper quadrant partially surrounding the upper pole the spleen is redemonstrated. Diffuse low-attenuation s uggesting fatty infiltration. Portal venous system is patent. No biliary ductal dilatation. Gallbladder, adrenal glands, kidneys , and pancreas within normal limits. Splenomegaly redemonstrated measuring 16.8 cm measured on axial series. This seems to be some underlying gila hepatis lymphadenopathy measuring up to 2.0 cm, axial image 30 and coronal image 34, unchanged from 03/08/2019 suggesting a reactive/inflammatory etiology. Scattered nonenlarged in some borderline sized mesenteric lymph nodes measuring up to 6 mm are unchan ged. No dilated small bowel, free fluid, or free air. Normal appendix. Moderate stool burden. Oral contrast progressed into the ascending colon. Redundant sigmoid colon. No pericolonic inflammatory change. Bladder partially distended. Pelvic ligaments. There seems to be some trace pelvic free fluid, axial image 86 of unclear etiology. Bones: No osseous destructive process. IMPRESSION: 1. HEPATOSPLENOMEGALY (LIVER 18.7 CM WITH HEPATIC STEATOSIS AND SPLEEN AT 16.8 CM). 2. THERE SEEMS TO BE SOME UNDERLYING PORTAHEPATIC LYMPHADENOPATHY MEASURING UP TO 2.0 CM, UNCHANGED F ROM 03/08/2019 SUGGESTING A REACTIVE/POST INFLAMMATORY ETIOLOGY. GIVEN PATIENT'S AGE, CONSIDER A 6 MO NTH MRI FOLLOW-UP TO REASSESS. THIS CAN ALSO REEVALUATE THE DEGREE OF FATTY INFILTRATION OF THE LIVER AND THE HEPATOSPLENOMEGALY. 3. TRACE PELVIC FREE FLUID OF UNCLEAR ETIOLOGY. CLINICAL FOLLOW-UP RECOMMENDED. 4. MODERATE STOOL BURDEN.
== END | disposition home or self-care (01) ==
LOC: RADCTMAIN 12:48
PROVIDERS: ATTEND Internal Medicine Infectious Disease
DX: K76.0 Fatty (change of) liver, not elsewhere classified (principal); R16.2 Hepatomegaly with splenomegaly, not elsewhere classified; R19.5 Other fecal abnormalities
CPT/HCPCS: 74177; Q9967 ×2

== ENCOUNTER 2019-09-05 11:15 | Emergency (ER) | payer BC ==
[2019-09-05 11:21] VITALS: RESP 18
--- NOTE | 2019-09-05 12:19 | ED ---
General Adult HPI - General Chief complaint: Syncope Stated complaint: Dizziness Source: patient, RN notes reviewed, old records reviewed Mode of arrival: wheelchair Limitations: no limitations - History of Present Illness Initial comments: This is a 29-year-old male who presents to the emergency department and he is extremely poor historian. Patient has a difficult time giving chronological story about his symptoms. Patient states he thinks he was passing out but he was awake during the whole thing and then he says he was weak and there was no focal weakness that he states he has had this ongoing since Thursday but didn't come in Thursday. Bottom line is sounds as though the patient states she's been weaker since Thursday and has a couple episodes where his fall but not gotten hurt. Patient denies any headache patient denies numbness weakness. Patient denies any chest pain difficult breathing shortest breath per patient denies any abdominal pain patient has nausea vomiting diarrhea. Patient denies any fever chills or cough. Patient states she's had a hard time walking and has been using a walker since Thursday. - Related Data Home Medications Medication Instructions Recorded Confirmed Dextroamphetamine/Amphetamine 15 mg PO BID 08/13/19 09/05/19 [Adderall Xr] glyBURIDE [Diabeta] 10 mg PO BID 08/13/19 09/05/19 Ondansetron Odt [Zofran Odt] 8 mg PO DAILY PRN 09/05/19 09/05/19 Previous Rx's Medication Instructions Recorded Ibuprofen [Motrin] 600 mg PO Q6HR PRN #120 tab 08/13/19 Allergies Allergy/AdvReac Type Severity Reaction Status Date / Time Penicillins Allergy Unknown Verified 09/05/19 13:13 Childhood Review of Systems ROS Statement: Those systems with pertinent positive or pertinent negative responses have been documented in the HPI. ROS Other: All systems not noted in ROS Statement are negative. Past Medical History Additional Past Medical History / Comment(s): migraines History of Any Multi-Drug Resistant Organisms: MRSA Date of last positivie culture/infection: 07/27/18 MDRO Source:: AXILLA Past Surgical History: No Surgical Hx Reported Past Psychological History: No Psychological Hx Reported Smoking Status: Current every day smoker Past Alcohol Use History: Rare Past Drug Use History: None Reported General Exam - General Exam Comments Initial Comments: GENERAL: Patient is well-developed and well-nourished. Patient is nontoxic and well- hydrated and is in no acute distress. ENT: Neck is soft and supple. No significant lymphadenopathy is noted. Oropharynx is clear. Moist mucous membranes. Neck has full range of motion without eliciting any pain. EYES: The sclera were anicteric and conjunctiva were pink and moist. Extraocular movements were intact and pupils were equal round and reactive to light. Eyelids were unremarkable. PULMONARY: Unlabored respirations. Good breath sounds bilaterally. No audible rales rhonc hi or wheezing was noted. CARDIOVASCULAR: There is a regular rate and rhythm without any murmurs gallops or rubs. ABDOMEN: Soft and nontender with normal bowel sounds. SKIN: Skin is clear with no lesions or rashes and otherwise unremarkable. NEUROLOGIC: Patient is alert and oriented x3. Cranial nerves II through XII are grossly intact. Motor and sensory are also intact. Normal speech, volume and content. Symmetrical smile. MUSCULOSKELETAL: Normal extremities with adequate strength and full range of motion. LYMPHATICS: No significant lymphadenopathy is noted PSYCHIATRIC: Normal psychiatric evaluation. Limitations: no limitations Course Vital Signs 09/05/19 11:18 Temperature 99.2 F Pulse Rate 109 H Respiratory 18 Rate Blood Pressure 101/70 O2 Sat by Pulse 99 Oximetry Medical Decision Making - Medical Decision Making EKG shows normal sinus rhythm at 95 bpm VA interval 162 QRS is 70 QT interval 332 QTC is 417. Patient's EKG shows no ST segment elevation or depression Patient was able to ambulate in the emergency department on multiple occasions without problem. Patient states that he's been having these problems intermittently for over a month. Patient states that he had the same problems when he had a salmonella infection in his blood. Patient states she has an appointment with his doctor tomorrow and will follow-up with a neurologist - Lab Data Result diagrams: 09/05/19 11:50 09/05/19 11:50 Lab Results 09/05/19 09/05/19 09/05/19 Range/Units 11:50 11:50 11:50 WBC 2.6 L (3.8-10.6) k/uL RBC 3.41 L (4.30-5.90) m/uL Hgb 10.5 L (13.0-17.5) gm/dL Hct 29.1 L (39.0-53.0) % MCV 85.5 (80.0-100.0) fL MCH 30.8 (25.0-35.0) pg MCHC 36.0 (31.0-37.0) g/dL RDW 23.7 H (11.5-15.5) % Plt Count 102 L (150-450) k/uL Neutrophils % 73 % Lymphocytes % 17 % Monocytes % 5 % Eosinophils % 1 % Basophils % 0 % Neutrophils # 1.9 (1.3-7.7) k/uL Lymphocytes # 0.4 L (1.0-4.8) k/uL Monocytes # 0.1 (0-1.0) k/uL Eosinophils # 0.0 (0-0.7) k/uL Basophils # 0.0 (0-0.2) k/uL Poikilocytosis Slight Anisocytosis Moderate Sodium 133 L (137-145) mmol/L Potassium 3.6 (3.5-5.1) mmol/L Chloride 102 (98-107) mmol/L Carbon Dioxide 21 L (22-30) mmol/L Anion Gap 10 mmol/L BUN 12 (9-20) mg/dL Creatinine 0.71 (0.66-1.25) mg/dL Est GFR (CKD-EPI)AfAm >90 (>60 ml/min/1.73 sqM) Est GFR (CKD-EPI)NonAf >90 (>60 ml/min/1.73 sqM) Glucose 118 H (74-99) mg/dL Calcium 7.9 L (8.4-10.2) mg/dL Magnesium 1.6 (1.6-2.3) mg/dL Total Bilirubin 1.0 (0.2-1.3) mg/dL AST 98 H (17-59) U/L ALT 51 H (4-49) U/L Alkaline Phosphatase 65 (38-126) U/L Total Protein 7.1 (6.3-8.2) g/dL Albumin 3.1 L (3.5-5.0) g/dL Urine Color Dark Yellow Urine Appearance Cloudy (Clear) Urine pH 6.0 (5.0-8.0) Ur Specific [place] 1.023 (1.001-1.035) Urine Protein 2+ H (Negative) Urine Glucose (UA) Trace H (Negative) Urine Ketones Negative (Negative) Urine Blood Negative (Negative) Urine Nitrite Negative (Negative) Urine Bilirubin 1+ H (Negative) Urine Urobilinogen 12.0 (<2.0) mg/dL Ur Leukocyte Esterase Negative (Negative) Urine WBC 5 (0-5) /hpf Ur Squamous Epith Cells 1 (0-4) /hpf Urine Bacteria Rare H (None) /hpf Urine Mucus Few H (None) /hpf Urine Opiates Screen Not Detected (NotDetected) Ur Oxycodone Screen Not Detected (NotDetected) Urine Methadone Screen Not Detected (NotDetected) Ur Propoxyphene Screen Not Detected (NotDetected) Ur Barbiturates Screen Not Detected (NotDetected) U Tricyclic Antidepress Not Detected (NotDetected) Ur Phencyclidine Scrn Not Detected (NotDetected) Ur Amphetamines Screen Not Detected (NotDetected) U Methamphetamines Scrn Not Detected (NotDetected) U Benzodiazepines Scrn Not Detected (NotDetected) Urine Cocaine Screen Not Detected (NotDetected) U Marijuana (THC) Screen Detected H (NotDetected) Disposition Clinical Impression: Weakness, Anemia Disposition: HOME SELF-CARE Condition: Good Instructions (If sedation given, give patient instructions): Weakness (ED), Anemia (ED) Is patient prescribed a controlled substance at d/c from ED?: No Referrals: Talisha Booth MD [Primary Care Provider] - 1-2 days Time of Disposition: 13:39
[2019-09-05 12:24] LABS: Anisocytosis Moderate; Appearance,Urine Cloudy (Clear); Bacteria,Urine Rare /hpf; Basophils % (A) 0 %; Bilirubin,Urine 1+ (Negative); Blood,Urine Negative (Negative); Color,Urine Dark Yellow; Eosinophils % (A) 1 %; Glucose,Urine (UA) Trace (Negative); HCT 29.1 % (39.0-53.0); HGB 10.5 gm/dL (13.0-17.5); Ketones,Urine Negative (Negative); Leukocyte Esterase,Urine Negative (Negative); Lymphocytes # (A) 0.4 k/uL (1.0-4.8); Lymphocytes % (A) 17 %; MCH 30.8 pg (25.0-35.0); MCV 85.5 fL (80.0-100.0); Mean Platelet Volume 9.8; Monocytes # (A) 0.1 k/uL (0-1.0); Monocytes % (A) 5 %; Mucus,Urine Few /hpf; Neutrophils # (A) 1.9 k/uL (1.3-7.7); Neutrophils % (A) 73 %; Nitrite,Urine Negative (Negative); Platelet Count 102 k/uL (150-450); Poikilocytosis Slight; Protein,Urine 2+ (Negative); RBC 3.41 m/uL (4.30-5.90); RDW 23.7 % (11.5-15.5); Specific Gravity,Urine 1.023 (1.001-1.035); Squamous Epithelial Cell,Urine 1 /hpf (0-4); WBC 2.6 k/uL (3.8-10.6); WBC,Urine 5 /hpf (0-5)
--- NOTE | 2019-09-05 12:40 | XR ---
EXAMINATION TYPE: XR chest 2V DATE OF EXAM: 09/05/2019 COMPARISON: Prior chest x-ray 08/13/2019 HISTORY: Difficulty breathing TECHNIQUE: Frontal and lateral views of the chest are obtained. FINDINGS: There is no focal air space opacity, pleural effusion, or pneumothorax seen. The cardiac silhouette size is within normal limits. The osseous structures are intact. The patient is again ro tated. There are prominent lung volumes. IMPRESSION: No acute cardiopulmonary process.
[2019-09-05 12:43] LABS: Amphetamine Screen,Urine Not Detected (NotDetected); Barbiturate Screen,Urine Not Detected (NotDetected); Benzodiazepines Screen,Urine Not Detected (NotDetected); Cocaine Screen,Urine Not Detected (NotDetected); Methadone Screen, Urine Not Detected (NotDetected); Opiate Screen,Urine Not Detected (NotDetected); Oxycodone Screen, Urine Not Detected (NotDetected); Phencyclidine Screen,Urine Not Detected (NotDetected); Tricyclic Antidepressant,Urine Not Detected (NotDetected); Urn Cannabinoid Scrn Detected (NotDetected)
--- NOTE | 2019-09-05 12:48 | CT ---
EXAMINATION TYPE: CT brain wo con DATE OF EXAM: 09/05/2019 COMPARISON: CT 12/06/2016 HISTORY: Dizziness, weakness CT DLP: 1141.1 mGycm. Automated Exposure Control for Dose Reduction was Utilized. DLP 1141.4 mGycent imeters TECHNIQUE: CT scan of the head is performed without contrast. FINDINGS: There is no acute intracranial hemorrhage, mass effect, or midline shift identified. The ventricles and sulci are within normal limits in size. The globes are intact and the visualized sin uses are clear. Some minimal patchy white matter low-attenuation is suspected, focus of low-attenuati on in the left cerebral peduncle on axial image 23 appears to be an interval finding. IMPRESSION: No acute intracranial hemorrhage, mass effect, or midline shift is seen. Nonspecific whi te matter demyelination may be present and additional findings above, consider MRI for better evaluat ion.
[2019-09-05 13:04] LABS: ALT 51 U/L (4-49); AST 98 U/L (17-59); African American GFR (CKD) >90 (>60 ml/min/1.73 sqM); Albumin 3.1 g/dL (3.5-5.0); Alkaline Phosphatase 65 U/L (38-126); Anion Gap 10 mmol/L; Blood Urea Nitrogen 12 mg/dL (9-20); Calcium 7.9 mg/dL (8.4-10.2); Carbon Dioxide 21 mmol/L (22-30); Chloride 102 mmol/L (98-107); Glucose 118 mg/dL (74-99); Magnesium 1.6 mg/dL (1.6-2.3); Non-African American GFR(CKD) >90 (>60 ml/min/1.73 sqM); Potassium 3.6 mmol/L (3.5-5.1); Sodium 133 mmol/L (137-145); Total Protein 7.1 g/dL (6.3-8.2)
[2019-09-05 14:03] VITALS: BP 128/79; PULSE 98; TEMP 98.9
== END 2019-09-05 14:00 | disposition home or self-care (01) ==
LOC: EC 11:15
DX: D64.9 Anemia, unspecified (principal); F17.200 Nicotine dependence, unspecified, uncomplicated; Z88.0 Allergy status to penicillin; Z86.19 Personal history of other infectious and parasitic diseases; Z86.14 Personal history of Methicillin resistant Staphylococcus aureus infection
CPT/HCPCS: 36415; 70450; 71046; 80053; 80306; 81001; 83735; 85025; 87040; 87077; 87186; 93005; 99285

== ENCOUNTER 2019-09-06 11:06 | Inpatient (IN) | payer BC ==
[2019-09-06] MEDS ORDERED: IBUPROFEN 600 MG TAB PO STA (11:41)
[2019-09-06] MEDS ORDERED: ACETAMINOPHEN TAB 500 MG TAB PO STA (11:41)
[2019-09-06 12:12] LABS: Amorphous Sediment,Urine Rare /hpf; Appearance,Urine Clear (Clear); Bacteria,Urine Rare /hpf; Bilirubin,Urine 1+ (Negative); Blood,Urine Trace (Negative); Color,Urine Dark Yellow; Glucose,Urine (UA) Trace (Negative); Ketones,Urine Negative (Negative); Leukocyte Esterase,Urine Trace (Negative); Mucus,Urine Rare /hpf; Nitrite,Urine Negative (Negative); Protein,Urine 2+ (Negative); RBC,Urine 2 /hpf (0-5); Specific Gravity,Urine 1.027 (1.001-1.035); Squamous Epithelial Cell,Urine <1 /hpf (0-4); WBC,Urine 4 /hpf (0-5)
[2019-09-06] MEDS: SODIUM CHLORIDE 0.9% 500 ML 500 ML IV SCH ×4 (12:12→14:00)
[2019-09-06 12:13] LABS: ALT 53 U/L (4-49); AST 91 U/L (17-59); African American GFR (CKD) >90 (>60 ml/min/1.73 sqM); Albumin 3.3 g/dL (3.5-5.0); Alkaline Phosphatase 77 U/L (38-126); Anion Gap 8 mmol/L; Blood Urea Nitrogen 13 mg/dL (9-20); Calcium 8.3 mg/dL (8.4-10.2); Carbon Dioxide 25 mmol/L (22-30); Chloride 100 mmol/L (98-107); Glucose 156 mg/dL (74-99); Non-African American GFR(CKD) >90 (>60 ml/min/1.73 sqM); Potassium 3.6 mmol/L (3.5-5.1); Sodium 133 mmol/L (137-145); Total Bilirubin 0.9 mg/dL (0.2-1.3); Total Protein 7.6 g/dL (6.3-8.2)
[2019-09-06] MEDS: SODIUM CHLORIDE 0.9% 1,000 ML IV SCH ×2 (12:13→20:46)
[2019-09-06 12:16] LABS: Partial Thromboplastin Time 25.4 sec (22.0-30.0); Prothrombin Time 10.4 sec (9.0-12.0)
[2019-09-06 12:23] LABS: Basophils % (A) 1 %; Eosinophils % (A) 1 %; HCT 32.8 % (39.0-53.0); Lymphocytes # (A) 0.3 k/uL (1.0-4.8); Lymphocytes % (A) 12 %; MCH 28.1 pg (25.0-35.0); MCHC 33.5 g/dL (31.0-37.0); Mean Platelet Volume 9.6; Monocytes # (A) 0.2 k/uL (0-1.0); Monocytes % (A) 6 %; Neutrophils # (A) 2.2 k/uL (1.3-7.7); Neutrophils % (A) 77 %; Platelet Count 105 k/uL (150-450); Poikilocytosis Slight; RBC 3.91 m/uL (4.30-5.90); RDW 14.3 % (11.5-15.5); WBC 2.9 k/uL (3.8-10.6)
--- NOTE | 2019-09-06 12:32 | ED ---
General Adult HPI - General Chief complaint: Recheck/Abnormal Lab/Rx Stated complaint: Abdnormal labs Time Seen by Provider: 09/06/19 11:21 Source: patient, RN notes reviewed, old records reviewed Mode of arrival: ambulatory Limitations: no limitations - History of Present Illness Initial comments: Benito is a 29-year-old male, prefers to be referred to his female. Patient prefers to be called Jovita. He presents today for abnormal blood culture and tra nsient leg weakness and syncope yesterday. Patient has grown gram-negative rods on blood culture was obtained yesterday. Patient did have Salmonella positive blood culture weeks ago. He finished his antibiotics and an followed up with infectious disease Dr. Arriaga. Patient states his finish the entire prescription. He reports he seen emergency room yesterday for a syncopal episode and generalized weakness. Patient is emergency room today with a fever 102. No recent Motrin Tylenol. He denies any other significant complaints at this time including chest pain shortness breath or any abdominal pain. Patient ports that he is able to ambulate from the room and has full range of motion of legs today, and reports that yesterday his legs gave out, passed out and was on the ground for some hours. does complain of some constipation. - Related Data Home Medications Medication Instructions Recorded Confirmed Dextroamphetamine/Amphetamine 15 mg PO BID 08/13/19 09/05/19 [Adderall Xr] glyBURIDE [Diabeta] 10 mg PO BID 08/13/19 09/05/19 Ondansetron Odt [Zofran Odt] 8 mg PO DAILY PRN 09/05/19 09/05/19 Previous Rx's Medication Instructions Recorded Ibuprofen [Motrin] 600 mg PO Q6HR PRN #120 tab 08/13/19 Allergies Allergy/AdvReac Type Severity Reaction Status Date / Time Penicillins Allergy Unknown Verified 09/06/19 11:13 Childhood Review of Systems ROS Statement: Those systems with pertinent positive or pertinent negative responses have been documented in the HPI. ROS Other: All systems not noted in ROS Statement are negative. Past Medical History Additional Past Medical History / Comment(s): migraines History of Any Multi-Drug Resistant Organisms: MRSA Date of last positivie culture/infection: 07/27/18 MDRO Source:: AXILLA Past Surgical History: No Surgical Hx Reported Past Psychological History: No Psychological Hx Reported Smoking Status: Current every day smoker Past Alcohol Use History: Rare Past Drug Use History: None Reported General Exam - General Exam Comments Initial Comments: 29 year old male, no distress. Limitations: no limitations General appearance: alert, in no apparent distress Head exam: Present: atraumatic, normocephalic, normal inspection Eye exam: Present: normal appearance, PERRL, EOMI. Absent: scleral icterus, conjunctival injection, periorbital swelling ENT exam: Present: normal exam, mucous membranes moist. Absent: normal oropharynx (Patient has evidence of thrush) Neck exam: Present: normal inspection. Absent: tenderness, meningismus, lymphadenopathy Respiratory exam: Present: normal lung sounds bilaterally. Absent: respiratory distress, wheezes, rales, rhonchi, stridor Cardiovascular Exam: Present: regular rate, normal rhythm, normal heart sounds. Absent: systolic murmur, diastolic murmur, rubs, gallop, clicks GI/Abdominal exam: Present: soft Extremities exam: Present: normal inspection, full ROM, normal capillary refill. Absent: tenderness, pedal edema, joint swelling, calf tenderness Back exam: Present: normal inspection Neurological exam: Present: alert, oriented X3, CN II-XII intact Psychiatric exam: Present: normal affect, normal mood Skin exam: Present: warm, dry, intact, normal color. Absent: rash Course Vital Signs 09/06/19 09/06/19 09/06/19 11:08 11:22 12:17 Temperature 101.0 F H 102.7 F H Pulse Rate 117 H 107 H Respiratory 18 18 Rate Blood Pressure 137/76 137/88 O2 Sat by Pulse 98 100 Oximetry Medical Decision Making - Medical Decision Making This Patient is a 29-year-old male presents for trauma today with fever, and a bnormal blood cultures from yesterday. His last blood cultures were positive for salmonella. Patient also complains of some transient leg weakness. At this time he is full range of motion of his lower extremities and normal pulses and station distally. He was able to ambulate to and from the bathroom and emergency department. Patient at this time did have a fever 102. He was given IV fluids, lab work obtained. He was started on IV Levaquin based off of last blood culture susceptibility. Patient also has evidence of thrush. Discussed that likely some concern for immunocompromise status. HIV test was completed today. At this time Patient will be admitted with consult to infectious disease as well as neurology for this transient leg weakness. Patient is agreeable to admission at this time. - Lab Data Result diagrams: 09/06/19 11:40 09/06/19 11:40 Lab Results 09/06/19 09/06/19 09/06/19 Range/Units 11:40 11:40 11:40 WBC 2.9 L (3.8-10.6) k/uL RBC 3.91 L (4.30-5.90) m/uL Hgb 11.0 L (13.0-17.5) gm/dL Hct 32.8 L (39.0-53.0) % MCV 84.0 (80.0-100.0) fL MCH 28.1 (25.0-35.0) pg MCHC 33.5 (31.0-37.0) g/dL RDW 14.3 (11.5-15.5) % Plt Count 105 L (150-450) k/uL Neutrophils % 77 % Lymphocytes % 12 % Monocytes % 6 % Eosinophils % 1 % Basophils % 1 % Neutrophils # 2.2 (1.3-7.7) k/uL Lymphocytes # 0.3 L (1.0-4.8) k/uL Monocytes # 0.2 (0-1.0) k/uL Eosinophils # 0.0 (0-0.7) k/uL Basophils # 0.0 (0-0.2) k/uL Poikilocytosis Slight PT 10.4 (9.0-12.0) sec INR 1.0 (<1.2) APTT 25.4 (22.0-30.0) sec Sodium 133 L (137-145) mmol/L Potassium 3.6 (3.5-5.1) mmol/L Chloride 100 (98-107) mmol/L Carbon Dioxide 25 (22-30) mmol/L Anion Gap 8 mmol/L BUN 13 (9-20) mg/dL Creatinine 0.67 (0.66-1.25) mg/dL Est GFR (CKD-EPI)AfAm >90 (>60 ml/min/1.73 sqM) Est GFR (CKD-EPI)NonAf >90 (>60 ml/min/1.73 sqM) Glucose 156 H (74-99) mg/dL Plasma Lactic Acid [place] (0.7-2.0) mmol/L Calcium 8.3 L (8.4-10.2) mg/dL Total Bilirubin 0.9 (0.2-1.3) mg/dL AST 91 H (17-59) U/L ALT 53 H (4-49) U/L Alkaline Phosphatase 77 (38-126) U/L Troponin I (0.000-0.034) ng/mL C-Reactive Protein (<10.0) mg/L Total Protein 7.6 (6.3-8.2) g/dL Albumin 3.3 L (3.5-5.0) g/dL Urine Color Urine Appearance (Clear) Urine pH (5.0-8.0) Ur Specific [place] (1.001-1.035) Urine Protein (Negative) Urine Glucose (UA) (Negative) Urine Ketones (Negative) Urine Blood (Negative) Urine Nitrite (Negative) Urine Bilirubin (Negative) Urine Urobilinogen (<2.0) mg/dL Ur Leukocyte Esterase (Negative) Urine RBC (0-5) /hpf Urine WBC (0-5) /hpf Ur Squamous Epith Cells (0-4) /hpf Amorphous Sediment (None) /hpf Urine Bacteria (None) /hpf Urine Mucus (None) /hpf 09/06/19 09/06/19 09/06/19 Range/Units 11:40 11:40 11:40 WBC (3.8-10.6) k/uL RBC (4.30-5.90) m/uL Hgb (13.0-17.5) gm/dL Hct (39.0-53.0) % MCV (80.0-100.0) fL MCH (25.0-35.0) pg MCHC (31.0-37.0) g/dL RDW (11.5-15.5) % Plt Count (150-450) k/uL Neutrophils % % Lymphocytes % % Monocytes % % Eosinophils % % Basophils % % Neutrophils # (1.3-7.7) k/uL Lymphocytes # (1.0-4.8) k/uL Monocytes # (0-1.0) k/uL Eosinophils # (0-0.7) k/uL Basophils # (0-0.2) k/uL Poikilocytosis PT (9.0-12.0) sec INR (<1.2) APTT (22.0-30.0) sec Sodium (137-145) mmol/L Potassium (3.5-5.1) mmol/L Chloride (98-107) mmol/L Carbon Dioxide (22-30) mmol/L Anion Gap mmol/L BUN (9-20) mg/dL Creatinine (0.66-1.25) mg/dL Est GFR (CKD-EPI)AfAm (>60 ml/min/1.73 sqM) Est GFR (CKD-EPI)NonAf (>60 ml/min/1.73 sqM) Glucose (74-99) mg/dL Plasma Lactic Acid [place] 1.2 (0.7-2.0) mmol/L Calcium (8.4-10.2) mg/dL Total Bilirubin (0.2-1.3) mg/dL AST (17-59) U/L ALT (4-49) U/L Alkaline Phosphatase (38-126) U/L Troponin I <0.012 (0.000-0.034) ng/mL C-Reactive Protein 163.7 H (<10.0) mg/L Total Protein (6.3-8.2) g/dL Albumin (3.5-5.0) g/dL Urine Color Urine Appearance (Clear) Urine pH (5.0-8.0) Ur Specific [place] (1.001-1.035) Urine Protein (Negative) Urine Glucose (UA) (Negative) Urine Ketones (Negative) Urine Blood (Negative) Urine Nitrite (Negative) Urine Bilirubin (Negative) Urine Urobilinogen (<2.0) mg/dL Ur Leukocyte Esterase (Negative) Urine RBC (0-5) /hpf Urine WBC (0-5) /hpf Ur Squamous Epith Cells (0-4) /hpf Amorphous Sediment (None) /hpf Urine Bacteria (None) /hpf Urine Mucus (None) /hpf 09/06/19 Range/Units 11:42 WBC (3.8-10.6) k/uL RBC (4.30-5.90) m/uL Hgb (13.0-17.5) gm/dL Hct (39.0-53.0) % MCV (80.0-100.0) fL MCH (25.0-35.0) pg MCHC (31.0-37.0) g/dL RDW (11.5-15.5) % Plt Count (150-450) k/uL Neutrophils % % Lymphocytes % % Monocytes % % Eosinophils % % Basophils % % Neutrophils # (1.3-7.7) k/uL Lymphocytes # (1.0-4.8) k/uL Monocytes # (0-1.0) k/uL Eosinophils # (0-0.7) k/uL Basophils # (0-0.2) k/uL Poikilocytosis PT (9.0-12.0) sec INR (<1.2) APTT (22.0-30.0) sec Sodium (137-145) mmol/L Potassium (3.5-5.1) mmol/L Chloride (98-107) mmol/L Carbon Dioxide (22-30) mmol/L Anion Gap mmol/L BUN (9-20) mg/dL Creatinine (0.66-1.25) mg/dL Est GFR (CKD-EPI)AfAm (>60 ml/min/1.73 sqM) Est GFR (CKD-EPI)NonAf (>60 ml/min/1.73 sqM) Glucose (74-99) mg/dL Plasma Lactic Acid [place] (0.7-2.0) mmol/L Calcium (8.4-10.2) mg/dL Total Bilirubin (0.2-1.3) mg/dL AST (17-59) U/L ALT (4-49) U/L Alkaline Phosphatase (38-126) U/L Troponin I (0.000-0.034) ng/mL C-Reactive Protein (<10.0) mg/L Total Protein (6.3-8.2) g/dL Albumin (3.5-5.0) g/dL Urine Color Dark Yellow Urine Appearance Clear (Clear) Urine pH 6.0 (5.0-8.0) Ur Specific [place] 1.027 (1.001-1.035) Urine Protein 2+ H (Negative) Urine Glucose (UA) Trace H (Negative) Urine Ketones Negative (Negative) Urine Blood Trace H (Negative) Urine Nitrite Negative (Negative) Urine Bilirubin 1+ H (Negative) Urine Urobilinogen 8.0 (<2.0) mg/dL Ur Leukocyte Esterase Trace H (Negative) Urine RBC 2 (0-5) /hpf Urine WBC 4 (0-5) /hpf Ur Squamous Epith Cells <1 (0-4) /hpf Amorphous Sediment Rare H (None) /hpf Urine Bacteria Rare H (None) /hpf Urine Mucus Rare H (None) /hpf - Radiology Data Radiology results: report reviewed Chest x-ray is negative for any acute process. Disposition Clinical Impression: Positive blood culture, Sepsis, Transient leg weakness, Leukopenia, Thrush Disposition: ADMITTED IP TO THIS HOSP Condition: Stable Is patient prescribed a controlled substance at d/c from ED?: No Referrals: Talisha Booth MD [Primary Care Provider] - 1-2 days Time of Disposition: 13:31
--- NOTE | 2019-09-06 12:44 | XR ---
EXAMINATION TYPE: XR chest 2V DATE OF EXAM: 09/06/2019 COMPARISON: Chest x-ray from yesterday. HISTORY: Abnormal labs and fever. Sepsis. TECHNIQUE: Frontal and lateral views of the chest are obtained. FINDINGS: Overlying EKG leads and current study. There is no focal air space opacity, pleural effusi on, or pneumothorax seen. The cardiac silhouette size is within normal limits. The osseous structu res are intact. IMPRESSION: No new acute pulmonary process. No significant change from prior.
[2019-09-06] MEDS ORDERED: LEVOFLOXACIN 750MG-D5W PMX 750 MG in DEXTROSE/WATER 1 150ML.BAG IVPB STA (13:17)
[2019-09-06] MEDS ORDERED: ACETAMINOPHEN TAB 325 MG TAB PO PRN (13:42)
[2019-09-06] MEDS ORDERED: MORPHINE SULFATE 4 MG/ML SYRINGE IV PRN (13:42)
[2019-09-06] MEDS ORDERED: IBUPROFEN 400 MG TAB PO PRN (13:42)
[2019-09-06] MEDS ORDERED: NALOXONE 0.4 MG/ML 1 ML VIAL IV PRN (13:42)
[2019-09-06] MEDS: Acetaminophen-Codeine 300-30mg TAB PO PRN ×2 (16:04→20:44)
--- NOTE | 2019-09-06 18:09 | P.CNNES ---
History of Present Illness Consult date: 09/06/19 Requesting physician: Brittnee Hammer Reason for Consult: Transient leg weakness, sepsis, positive blood culture. History of Present Illness: Patient is a 29-year-old male, who recently was diagnosed with septicemia due to salmonella. Patient states that he took 2 weeks course of antibiotics, which was completed a week ago. Patient believes that the infection was cleared. Patient states that on 09/03/2019, he noticed weakness in the legs. He also had a syncopal spell, in which he passed out in the bathroom floor. He woke up to his mother and sister knocking on the front door. Patient states that he somehow managed to get up, and answered to the door. He believes he was out for about a couple hours. He had no warning prior to this syncopal spell. He has been using walker, and his right leg has been giving out. Denies any numbness in the legs. He stayed home, wanted to talk to his physician, who recommended him to go to ER. Chest x-ray showed no acute cardiopulmonary process. EKG shows sinus tachycardia. Patient's blood test shows sodium 133 potassium 3.6 renal functions normal. AST is mildly elevated 91, ALT 53. CRP 163. CBC with leukopenia of WBC 2.9 and low white count of 0.3. Hemoglobin 11.0. CRP 163. Patient had a computed tomography scan of head performed yesterday, which revealed no acute intracranial hemorrhage or mass effect or midline shift. Some minimal patchy white matter low attenuation is suspected, focus of low attenuation in the left cerebral peduncle, appears to be an interval findings. MRI recommended. Patient's blood culture on 09/05/2019 was positive for gram- negative bacilli. Apparently patient has history of salmonella enteritidis sepsis recently, and the first time it was positive was 08/13/2019. Patient has history of diabetes for last few years. She has smoked 1 pack per day for 15 years. Patient denies alcohol or drugs. No history of IV drug use. Denies use of marijuana. Review of Systems Patient denies any headache, problem with vision, hoarseness to throw dysphagia. Patient does have some low back pain but is not anything serious. Denies chest pain shortness of breath wheezing or cough. Denies abdominal pain. All other review of systems unremarkable. Past Medical History Additional Past Medical History / Comment(s): migraines History of Any Multi-Drug Resistant Organisms: MRSA Date of last positivie culture/infection: 07/27/18 MDRO Source:: AXILLA Past Surgical History: No Surgical Hx Reported Past Psychological History: No Psychological Hx Reported Smoking Status: Current every day smoker Past Alcohol Use History: Rare Past Drug Use History: None Reported - Past Family History Mother Family Medical History: CVA/TIA, Liver Disease Father Family Medical History: Myocardial Infarction (NH) Medications and Allergies Home Medications Medication Instructions Recorded Confirmed Type Dextroamphetamine/Amphetamine 15 mg PO BID 08/13/19 09/06/19 History [Adderall Xr] Ibuprofen [Motrin] 600 mg PO Q6HR PRN #120 tab 08/13/19 09/06/19 Rx glyBURIDE [Diabeta] 10 mg PO BID 08/13/19 09/06/19 History Ondansetron Odt [Zofran Odt] 8 mg PO DAILY PRN 09/05/19 09/06/19 History Allergies Allergy/AdvReac Type Severity Reaction Status Date / Time Penicillins Allergy Unknown Verified 09/06/19 14:20 Childhood Physical Examination - Vital Signs Vital Signs: Vital Signs Temp Pulse Pulse Resp BP BP Pulse Ox 09/06/19 15:00 98.0 F 87 16 119/70 96 09/06/19 14:39 92 18 09/06/19 13:22 101.7 F H 09/06/19 12:17 107 H 18 137/88 100 09/06/19 11:22 102.7 F H 09/06/19 11:08 101.0 F H 117 H 18 137/76 98 Intake and Output 09/06/19 09/06/19 09/06/19 06:59 14:59 22:59 Other: Weight 106.594 kg 106.594 kg On examination patient is a young male, in no distress. Patient is alert and awake. Patient has slightly slow mentation. Sometimes prolonged latency to answer question. Patient speaks with some slurring but no obvious aphasia or dysarthria. Patient is angular chelosis. Tongue appears somewhat raw. On cranial examination pupils are round and reactive to light, visual perdomo are full on confrontation, extraocular muscles are intact. Patient has very mild left facial asymmetry only on active testing. Tongue protrudes to the midline. On muscle strength testing there is no pronator drift and the strength appears normal in the arms and legs. Reflexes are 2+ in the upper limbs, 3 at the knees, 2+ ankles and plantars are upgoing bilaterally. Sensory touch is equ al. No ataxia for [id number] testing. Tone and bulk of muscles normal. Patient walks slightly unsteady and wide base. There is no obvious bruit, S1 and S2 audible. No peripheral edema. Peripheral pulses present. Patient does have some low back pain. However there is no spinal percussion tenderness. Results - Laboratory Findings CBC and BMP: 09/06/19 11:40 09/06/19 11:40 Abnormal Lab Findings: Abnormal Labs 09/06/19 09/06/19 09/06/19 11:40 11:40 11:40 WBC 2.9 L RBC 3.91 L Hgb 11.0 L Hct 32.8 L Plt Count 105 L Lymphocytes # 0.3 L Sodium 133 L Glucose 156 H Calcium 8.3 L AST 91 H ALT 53 H C-Reactive Protein 163.7 H Albumin 3.3 L Urine Protein Urine Glucose (UA) Urine Blood Urine Bilirubin Ur Leukocyte Esterase Amorphous Sediment Urine Bacteria Urine Mucus 09/06/19 11:42 WBC RBC Hgb Hct Plt Count Lymphocytes # Sodium Glucose Calcium AST ALT C-Reactive Protein Albumin Urine Protein 2+ H Urine Glucose (UA) Trace H Urine Blood Trace H Urine Bilirubin 1+ H Ur Leukocyte Esterase Trace H Amorphous Sediment Rare H Urine Bacteria Rare H Urine Mucus Rare H Assessment and Plan Assessment: * 29-year-old male, who has history of salmonella sepsis on 08/13/2019, treated with 2 weeks course of antibiotics, has presented with 4 day history of subjective leg weakness, and a syncopal spell with prolonged postictal state. Examination revealed brisk reflexes and possible bilateral Babinski. No spinal percussion tenderness noted. Patient's blood culture continue to be abnormal with gram-negative bacilli suggestive of septicemia. Rule out bacterial endocarditis. Rule out septic emboli, brain abscess. * Salmonella septicemia. * Chronic leukopenia and lymphopenia. Rule out immunocompromised state. * Diabetes. Plan: * MRI of the brain with and without contrast to rule out septic emboli. * 2-D echo to rule out vegetations. * EEG * B12, folate, B6, B1 level. Agree with checking HIV status. * Hemoglobin A1c and lipid panel. * Start aspirin 81 mg daily. * Neurology will follow.
[2019-09-06] MEDS: ASPIRIN 325 MG TAB PO SCH (20:44)
[2019-09-06 22:11] LABS: HIV 2 AB Non-Reactive (Non-Reactive); HIV AB P24 REACTIVE (Non-Reactive)
[2019-09-06] MEDS: ONDANSETRON 4 MG/2 ML VIAL IVP PRN (23:02)
--- NOTE | 2019-09-06 23:57 | P.HPIM ---
History of Present Illness H&P Date: 09/06/19 Chief Complaint: leg weakness Patient is a 29-year-old male who prefers to be referenced to his female, history of migraine headaches, ongoing nicotine addiction and recent history of salmonella enteritis bacteremia initially in the blood cultures on 08/13/2019. Patient took antibiotics in the form of Levaquin for 2 weeks which was completed about a week ago. Patient was seen in the ER yesterday and blood culture was sent. Patient's blood cultures came back positive for gram-negative bacilli. Patient came back to the hospital today due to complaints of bilateral lower extremity weakness and had a syncopal episode and passed out in the bathroom floor. Patient states that her sister woke her up when she was knocking on the door. Patient states that she passed out for about 2 hours. Denied any complaints of chest pain or shortness of breath. Patient states that she is feeling very tired. She has been using walker and his right leg has been giving out. Patient was seen in the ER yesterday due to syncopal episode and generalized weakness. CT head showed no acute process. Chest x-ray was negative and patient was febrile. Blood culture was sent at that time. EKG showed sinus tachycardia. Laboratory data showed WBC 2.9, hemoglobin 11.0, platelets 105. Sodium 133, potassium 3.6, lactic acid 1.2, bilirubin total 0.9, AST 91, ALT 53, troponin x1-, CRP 163.7 and albumin 3.3 HIV 1 reactive, HIV P 24 antibody reactive. UA negative for infection. Review of Systems Constitutional: Patient denies any fever or chills . No generalized weakness or weight loss. Abdomen: Patient denied nausea vomiting and diarrhea and abdominal pain. Cardiovascular: Patient denies any chest pain or short of breath no palpitations. Respiratory: patient denied any cough is from production. No shortness of breath Neurologic: Patient denied any numbness or tingling. Patient does have dizziness and headache and ringing ears.syncope. b/l leg weakness. Musculoskeletal: Patient denies any complaints of joint swelling or deformity. Skin: Negative Psychiatric: Negative Endocrine: No heat or cold intolerance. No recent weight gain. Genitourinary: No dysuria or hematuria. All other 14 point ROS negative except the above Past Medical History Additional Past Medical History / Comment(s): migraines History of Any Multi-Drug Resistant Organisms: MRSA Date of last positivie culture/infection: 07/27/18 MDRO Source:: AXILLA Past Surgical History: No Surgical Hx Reported Past Psychological History: No Psychological Hx Reported Smoking Status: Current every day smoker Past Alcohol Use History: Rare Past Drug Use History: None Reported - Past Family History Mother Family Medical History: CVA/TIA, Liver Disease Father Family Medical History: Myocardial Infarction ([place]) Medications and Allergies Home Medications Medication Instructions Recorded Confirmed Type Dextroamphetamine/Amphetamine 15 mg PO BID 08/13/19 09/06/19 History [Adderall Xr] Ibuprofen [Motrin] 600 mg PO Q6HR PRN #120 tab 08/13/19 09/06/19 Rx glyBURIDE [Diabeta] 10 mg PO BID 08/13/19 09/06/19 History Ondansetron Odt [Zofran Odt] 8 mg PO DAILY PRN 09/05/19 09/06/19 History Allergies Allergy/AdvReac Type Severity Reaction Status Date / Time Penicillins Allergy Unknown Verified 09/06/19 14:20 Childhood Physical Exam Vitals: Vital Signs Temp Pulse Pulse Resp BP BP Pulse Ox 09/06/19 16:00 14 09/06/19 15:00 98.0 F 87 16 119/70 96 09/06/19 14:39 92 18 09/06/19 13:22 101.7 F H 09/06/19 12:17 107 H 18 137/88 100 09/06/19 11:22 102.7 F H 09/06/19 11:08 101.0 F H 117 H 18 137/76 98 Intake and Output 09/06/19 09/06/19 09/06/19 06:59 14:59 22:59 Other: Weight 106.594 kg 106.594 kg PHYSICAL EXAMINATION: Patient is lying in the bed comfortably, no acute distress, awake alert and oriented.. HEENT: Normocephalic. Neck is supple. Pupils reactive. Nostrils clear. Oral cavity is moist. Ears reveal no drainage. Neck reveals no JVD, carotid bruits, or thyromegaly. CHEST EXAMINATION: Trachea is central. Symmetrical expansion. Lung perdomo clear to auscultation and percussion. CARDIAC: Normal S1, S2 with no gallops. No murmurs ABDOMEN: Soft. Bowel sounds normal. No organomegaly. No abdominal bruits. Extremities: reveal no edema. No clubbing or cyanosis Neurologically awake, alert, oriented x3 with well-coordinated movements. No focal deficits noted Skin: No rash or skin lesions. Psychiatric: Coperative. Nonsuicidal Musculoskeletal: No joint swelling or deformity. Normal range of motion. Results CBC & Chem 7: 09/06/19 11:40 09/06/19 11:40 Labs: Abnormal Lab Results - Last 24 Hours (Table) 09/06/19 09/06/19 09/06/19 Range/Units 11:40 11:40 11:40 WBC 2.9 L (3.8-10.6) k/uL RBC 3.91 L (4.30-5.90) m/uL Hgb 11.0 L (13.0-17.5) gm/dL Hct 32.8 L (39.0-53.0) % Plt Count 105 L (150-450) k/uL Lymphocytes # 0.3 L (1.0-4.8) k/uL Sodium 133 L (137-145) mmol/L Glucose 156 H (74-99) mg/dL Calcium 8.3 L (8.4-10.2) mg/dL AST 91 H (17-59) U/L ALT 53 H (4-49) U/L C-Reactive Protein 163.7 H (<10.0) mg/L Albumin 3.3 L (3.5-5.0) g/dL Urine Protein (Negative) Urine Glucose (UA) (Negative) Urine Blood (Negative) Urine Bilirubin (Negative) Ur Leukocyte Esterase (Negative) Amorphous Sediment (None) /hpf Urine Bacteria (None) /hpf Urine Mucus (None) /hpf 09/06/19 Range/Units 11:42 WBC (3.8-10.6) k/uL RBC (4.30-5.90) m/uL Hgb (13.0-17.5) gm/dL Hct (39.0-53.0) % Plt Count (150-450) k/uL Lymphocytes # (1.0-4.8) k/uL Sodium (137-145) mmol/L Glucose (74-99) mg/dL Calcium (8.4-10.2) mg/dL AST (17-59) U/L ALT (4-49) U/L C-Reactive Protein (<10.0) mg/L Albumin (3.5-5.0) g/dL Urine Protein 2+ H (Negative) Urine Glucose (UA) Trace H (Negative) Urine Blood Trace H (Negative) Urine Bilirubin 1+ H (Negative) Ur Leukocyte Esterase Trace H (Negative) Amorphous Sediment Rare H (None) /hpf Urine Bacteria Rare H (None) /hpf Urine Mucus Rare H (None) /hpf Thrombosis Risk Factor Assmnt - DVT/VTE Prophylaxis DVT/VTE Prophylaxis: Pharmacologic Prophylaxis ordered - Choose All That Apply Any of the Below Risk Factors Present?: No Other Risk Factors: No Other congenital or acquired thrombophilia - If yes, enter type in comment: No Thrombosis Risk Factor Assessment Level: Very Low Risk Assessment and Plan Assessment: Sepsis secondary to gram-negative bacilli bacteremia Recent history of Salmonella enteritis bacteremia Acute syncopal episode. Rule out seizures versus septic emboli. Newly diagnosed HIV infection Bilateral lower extremity weakness Neutropenia And thrombocytopenia Migraine headaches History of MRSA axilla abscess Plan: Patient is being continued on antibiotics in the form of Levaquin. Follow-up repeat blood cultures. ID service will be consulted. Neurology was consulted due to bilateral lower extremity weakness and syncopal episode. MRI of the brain was ordered to rule out septic emboli, 2D echocardiogram and EEG was ordered. Patient was started on aspirin 81 mg daily. ID service will be consu lted. Patient does have new onset HIV infection. Continue to follow closely and further recommendations based on the clinical course. Time with Patient: Greater than 30
[2019-09-07] MEDS: SODIUM CHLORIDE 0.9% 1,000 ML IV SCH ×3 (02:33→20:07)
[2019-09-07] MEDS: NICOTINE 21MG/24HR PATCH TRANSDERM SCH (02:33)
[2019-09-07] MEDS: Acetaminophen-Codeine 300-30mg TAB PO PRN ×2 (04:04→20:24)
[2019-09-07 07:42] LABS: African American GFR (CKD) >90 (>60 ml/min/1.73 sqM); Anion Gap 5 mmol/L; Blood Urea Nitrogen 14 mg/dL (9-20); Calcium 7.4 mg/dL (8.4-10.2); Carbon Dioxide 23 mmol/L (22-30); Chloride 106 mmol/L (98-107); Cholesterol 89 mg/dL (<200); Glucose 176 mg/dL (74-99); HDL Cholesterol 9 mg/dL (40-60); Non-African American GFR(CKD) >90 (>60 ml/min/1.73 sqM); Potassium 3.6 mmol/L (3.5-5.1); Sodium 134 mmol/L (137-145); Triglycerides 290 mg/dL (<150)
[2019-09-07 08:09] LABS: Basophils % (A) 0 %; Eosinophils # (A) 0.2 k/uL (0-0.7); Eosinophils % (A) 7 %; HCT 28.4 % (39.0-53.0); HGB 9.6 gm/dL (13.0-17.5); Lymphocytes # (A) 0.2 k/uL (1.0-4.8); Lymphocytes % (A) 9 %; MCH 28.9 pg (25.0-35.0); MCHC 33.8 g/dL (31.0-37.0); MCV 85.6 fL (80.0-100.0); Monocytes # (A) 0.1 k/uL (0-1.0); Monocytes % (A) 5 %; Neutrophils # (A) 1.7 k/uL (1.3-7.7); Neutrophils % (A) 76 %; Platelet Count 101 k/uL (150-450); Poikilocytosis Slight; RBC 3.32 m/uL (4.30-5.90); RDW 14.6 % (11.5-15.5); WBC 2.2 k/uL (3.8-10.6)
[2019-09-07] MEDS: PANTOPRAZOLE 40 MG/10 ML VIAL IV SCH (08:37)
[2019-09-07] MEDS: ASPIRIN 325 MG TAB PO SCH (08:37)
--- NOTE | 2019-09-07 11:44 | MR ---
PRE AND POSTCONTRAST ENHANCED MRI OF THE BRAIN: CLINICAL HISTORY: Leg weakness and syncopal episode.Pt has been newly diagnosed with HIV. CONTRAST: 10ml Gadavist Multiplanar and multispin-echo imaging of the brain was performed both before and after the administr ation of contrast. The ventricles, basal cisterns and sulci overlying the cerebral convexities are moderately enlarged f or the patient's age group. There is no evidence for midline shift or mass effect. Acute intracranial hemorrhage or extra-axial collection is not evident. There is periventricular increased signal noted as well as foci of increased signal within the deep w tona matter of both cerebral hemispheres. The largest lesion left frontal lobe measures 9.8 mm while the largest lesion right centrum semioval bilaterally anteriorly measures 8.5 mm. Increased signal al so noted within the deloris. On these may be related to demyelination. Following contrast administration, there is no evidence for pathologic enhancement or enhancing mass. The paranasal sinuses and mastoid air cells are well-aerated. IMPRESSION: Correlate for demyelination. No acute intracranial process identified. No pathologic enha ncement.
[2019-09-07] MEDS ORDERED: LEVOFLOXACIN 750MG-D5W PMX 750 MG in DEXTROSE/WATER 1 150ML.BAG IVPB SCH (12:00)
--- NOTE | 2019-09-07 12:30 | EEG ---
ELECTROENCEPHALOGRAM REPORT DATE OF SERVICE: 09/07/2019 PREAMBLE: A 29-year-old male with syncopal spell. This study is performed to evaluate for any epileptiform activity. EEG FINDINGS: This is a 21 channel, routine EEG recording in a patient utilizing 10-20 international system with referential and bipolar montages. The background consists of well- developed, moderately well regulated, somewhat low voltage activity in the 7-8 hertz alpha. Background is posterior dominant and reactive to eye opening and closing. Photic driving response was seen with some flash frequencies. The patient was drowsy during most of the study with the presence of diffuse low-voltage at theta frequency rhythm. Deeper stages of sleep were not seen. No focal or generalized epileptiform activity was seen. EKG rhythm lead revealed no obvious arrhythmia. IMPRESSION: This is a borderline abnormal EEG due to minimal background slowing. This is suggestive of nonspecific generalized cerebral dysfunction, that may be related to encephalopathy. No epileptiform activity was seen. MMODL / IJN: [id number] /
[2019-09-07 12:45] LABS: Folate, Serum 8.3 ng/mL
[2019-09-07 14:55] LABS: Hemoglobin A1C 9.4 % (4.0-6.0)
[2019-09-07] MEDS: IOPAMIDOL CONTRAST (ORAL USE) VIAL PO PRN ×2 (15:20→16:19)
[2019-09-07] MEDS: CYANOCOBALAMIN 500 MCG TAB PO SCH (15:21)
[2019-09-07] MEDS: ALPRAZolam 0.5 MG TAB PO PRN ×2 (15:26→22:38)
--- NOTE | 2019-09-07 17:08 | CT ---
EXAMINATION TYPE: CT abdomen pelvis w con DATE OF EXAM: 09/07/2019 COMPARISON: CT abdomen and pelvis August 18, 2019. Older CT March 08, 2019. HISTORY: ABDOMINAL PAIN, GRAM NEGATIVE BACTEREMIA CT DLP: 2140.5 mGycm, Automated Exposure Control for Dose Reduction was Utilized. CONTRAST: CT scan of the abdomen and pelvis is performed with oral and with IV Contrast, patient injected with 100 mL of Isovue 300. FINDINGS: LUNG BASES: Stable prominent but subcentimeter right pericardial lymph node anteriorly axial image 9 for reference. LIVER/GB: Persistent hepatomegaly and diffuse heterogeneous hypodense appearance of liver consistent with diffuse fatty infiltration. Prominent left hepatic lobe redemonstrated. Gallbladder has distende d margins with suggestion of wall thickening. No CT dense intraluminal gallstones. Acute cholecystiti s needs to be considered PANCREAS: No significant abnormality is seen. SPLEEN: Persistent splenomegaly at 16.0 cm axial image 25. ADRENALS: No significant abnormality is seen. KIDNEYS: No significant abnormality is seen. BOWEL: Oral contrast reaches the level of the proximal transverse colon. No suspicious small or large bowel dilatation. PROSTATE/SEMINAL VESICLES: Occasional scattered pelvic phlebolith. LYMPH NODES: No greater than 1cm abdominal or pelvic lymph nodes are appreciated. OSSEOUS STRUCTURES: No significant abnormality is seen. OTHER: Small amount of free fluid superior to the prostate axial image 83 for reference. IMPRESSION: 1. Gallbladder has distended margins with suspected abnormal gallbladder wall thickening. Acute diamond cystitis needs to be considered. Clinical correlation advised. Consider ultrasound follow-up. 2. Small amount of free fluid in pelvis of uncertain etiology increased from most recent CT August 17. 3. Persistent hepatosplenomegaly and fatty infiltration of liver.
--- NOTE | 2019-09-08 00:09 | P.CONS ---
History of Present Illness - Reason for Consult Consult date: 09/07/19 Gram negative bacteremia Requesting physician: Edmund E Sheet - Chief Complaint weakenss and positive blood cultures - History of Present Illness Patient is a 29-year-old male with recent diagnosis of Salmonella bacteremia thought to be related to abdominal source in this patient who did have a CT of abdominal pelvis that did not show any evidence of colitis or other acute abnormality patient did have penicillin allergy and was treated with oral Cipro patient did have overall improvement and resolution of his symptoms patient presented to [facility] ER on 09/05/2019 after apparently the patient did have syncopal episode in the bathroom symptom happened the day before he presented to hospital when asked specifically what he was doing he did not answer and what he meant by syncope no clear ulcers has been complaining of this weakness and generalized weakness patient was evaluated by the physician on 09/05/19 and was subsequent discharged home he did have a blood culture drawn on 511 which came back positive with a gram-negative and the patient was advised to come back to the hospital patient subsequently has been admitted to the hospital and was started on Levaquin patient also have an HIV testing done which came back positive to the patient so he did not aspirate he also have elevated liver enzymes patient was started on Levaquin for stent was consulted for further management of his antibiotic therapy underlying bacteremia Review of Systems Positive point has been mentioned in HPI rest of the systems are negative Past Medical History Additional Past Medical History / Comment(s): migraines History of Any Multi-Drug Resistant Organisms: MRSA Year Discovered:: 07/27/18 MDRO Source:: AXILLA Past Surgical History: No Surgical Hx Reported Past Psychological History: No Psychological Hx Reported Smoking Status: Current every day smoker Past Alcohol Use History: Rare Past Drug Use History: None Reported - Past Family History Mother Family Medical History: CVA/TIA, Liver Disease Father Family Medical History: Myocardial Infarction ([place]) Medications and Allergies Home Medications Medication Instructions Recorded Confirmed Type Dextroamphetamine/Amphetamine 15 mg PO BID 08/13/19 09/06/19 History [Adderall Xr] Ibuprofen [Motrin] 600 mg PO Q6HR PRN #120 tab 08/13/19 09/06/19 Rx glyBURIDE [Diabeta] 10 mg PO BID 08/13/19 09/06/19 History Ondansetron Odt [Zofran Odt] 8 mg PO DAILY PRN 09/05/19 09/06/19 History Allergies Allergy/AdvReac Type Severity Reaction Status Date / Time Penicillins Allergy Unknown Verified 09/06/19 14:20 Childhood Physical Exam Vitals: Vital Signs Temp Pulse Pulse Resp BP Pulse Ox 09/07/19 07:00 98.9 F 100 18 105/71 99 09/07/19 02:00 98.1 F 96 20 117/71 98 09/06/19 20:00 98.8 F 99 20 99/62 99 09/06/19 16:00 14 09/06/19 15:00 98.0 F 87 16 119/70 96 Intake and Output 09/06/19 09/07/19 09/07/19 22:59 06:59 14:59 Intake Total 600 Balance 600 Intake: IV 600 Sodium Chloride 0.9% 1, 600 000 ml @ 130 mls/hr IV . Q7H42M [facility] Rx#:[id number] Other: Weight 106.594 kg GENERAL DESCRIPTION: Middle-aged male lying in bed, no distress. No tachypnea or accessory muscle of respiration use. HEENT: Shows Pallor , no scleral icterus. Oral mucous membrane is dry. NECK: Trachea central, no thyromegaly. LUNGS: Unlabored breathing. Clear to auscultation anteriorly. No wheeze or crackle. HEART: S1, S2, regular rate and rhythm. ABDOMEN: Soft, no tenderness , guarding or rigidity EXTREMITIES: No edema of feet.SKIN: No rash, no masses palpable. NEUROLOGICAL: The patient is awake, alert, oriented x3, mood and affect normal. Results CBC & Chem 7: 09/07/19 07:00 09/07/19 07:00 Labs: Abnormal Lab Results - Last 24 Hours (Table) 09/06/19 09/07/19 09/07/19 Range/Units 11:40 07:00 07:00 WBC 2.2 L (3.8-10.6) k/uL RBC 3.32 L (4.30-5.90) m/uL Hgb 9.6 L (13.0-17.5) gm/dL Hct 28.4 L (39.0-53.0) % Plt Count 101 L (150-450) k/uL Lymphocytes # 0.2 L (1.0-4.8) k/uL Sodium 134 L (137-145) mmol/L Creatinine 0.64 L (0.66-1.25) mg/dL Glucose 176 H (74-99) mg/dL Calcium 7.4 L (8.4-10.2) mg/dL Triglycerides 290 H (<150) mg/dL HDL Cholesterol 9 L (40-60) mg/dL HIV-1 Antibody REACTIVE H (Non-Reactive) HIV p24 Antibody REACTIVE H (Non-Reactive) HIV P24 Antigen H (Non-Reactive) Microbiology - Last 24 Hours (Table) 09/06/19 11:40 Blood Culture Gram Stain - Preliminary Blood 09/06/19 11:40 Blood Culture - Final Blood Assessment and Plan Assessment: 1-patient with Salmonella bacteremia with recent treatment with oral Cipro because of his penicillin allergy and did have overall resolution of his GI symptom now with recurrence of bacteremia is concerning for possible deep source and a question of possible cholecystitis that has been usually associated with his Salmonella bacteremia 2-penicillin allergy that would limit the number of antibiotics safe to use 3-HIV no diagnosis possible sexually acquired however last sexual activity more than a year ago (1) Salmonella bacteremia Current Visit: Yes Status: Acute Code(s): R78.81 - BACTEREMIA SNOMED Code(s): 708287282 (2) HIV (human immunodeficiency virus infection) Current Visit: Yes Status: Acute Code(s): B20 - HUMAN IMMUNODEFICIENCY VIRUS [HIV] DISEASE SNOMED Code(s): 40478897 Plan: 1-discontinue Levaquin 2-start the patient on Rocephin 2 g daily 3-blood culture repeated to document clearance of bacteremia 4-obtain HIV viral load genotype CD4 count, patient has been counseled about his HIV and treatment options discussed We will follow on clinical condition and cultures to further adjust medication if neededThank you for this consultation we will follow the patient along with you Time with Patient: Greater than 30
[2019-09-08] MEDS: SODIUM CHLORIDE 0.9% 1,000 ML IV SCH ×3 (01:20→16:42)
--- NOTE | 2019-09-08 08:21 | ECHOF ---
Referral Reason:Possible TIA, rule out vegetation MEASUREMENTS -------- HEIGHT: 172.7 cm WEIGHT: 106.6 kg BP: 117/71 RVIDd: 3.6 cm (< 3.3) IVSd: 1.1 cm (0.6 - 1.1) LVIDd: 4.0 cm (3.9 - 5.3) LVPWd: 1.3 cm (0.6 - 1.1) IVSs: 1.3 cm LVIDs: 2.9 cm LVPWs: 1.7 cm LAESV Index (A-L): 16.73 ml/m Ao Diam: 3.0 cm (2.0 - 3.7) AV Cusp: 1.7 cm (1.5 - 2.6) MV EXCURSION: 23.254 mm (> 18.000) MV EF SLOPE: 86 mm/s (70 - 150) EPSS: 0.9 cm MV E Doug: 1.40 m/s MV DecT: 198 ms MV A Doug: 0.70 m/s MV E/A Ratio: 2.01 AV maxP.42 mmHg AV meanP.43 mmHg RAP: 5.00 mmHg RVSP: 29.84 mmHg FINDINGS -------- Sinus rhythm. This was a technically difficult study with suboptimal apical views. Suboptimal image quality - poor subcostal views. There is borderline concentric left ventricular hypertrophy. Overall left ventricular systolic func tion is normal with, an EF between 55 - 60 %. The diastolic filling pattern is normal for the age o f the patient 13.64. The right ventricle is mildly enlarged. Normal LA size by volume 22+/-6 ml/m2. The right atrial size is normal. 5.0mg of Lumason was utilized for enhancement of images Interatrial and interventricular septum intact. There is no evidence of aortic regurgitation. There is no evidence of aortic stenosis. Mild mitral regurgitation is present. Mild tricuspid regurgitation present. There is no evidence of pulmonary hypertension. The right v entricular systolic pressure, as measured by Doppler, is 29.84mmHg. There is no pulmonic regurgitation present. The aortic root size is normal. IVC Not well visulized. There is no pericardial effusion. CONCLUSIONS -------- 1. Sinus rhythm. 2. This was a technically difficult study with suboptimal apical views. 3. Suboptimal image quality - poor subcostal views. 4. There is borderline concentric left ventricular hypertrophy. 5. Overall left ventricular systolic function is normal with, an EF between 55 - 60 %. 6. The diastolic filling pattern is normal for the age of the patient 13.64 7. The right ventricle is mildly enlarged. 8. Normal LA size by volume 22+/-6 ml/m2. 9. The right atrial size is normal. 10. 5.0mg of Lumason was utilized for enhancement of images 11. Interatrial and interventricular septum intact. 12. There is no evidence of aortic regurgitation. 13. There is no evidence of aortic stenosis. 14. Mild mitral regurgitation is present. 15. Mild tricuspid regurgitation present. 16. There is no evidence of pulmonary hypertension. 17. The right ventricular systolic pressure, as measured by Doppler, is 29.84mmHg. 18. There is no pulmonic regurgitation present. 19. The aortic root size is normal. 20. IVC Not well visulized. 21. There is no pericardial effusion. SPORTS INFORMATION DIRECTOR: Elly Rosa RDCS
[2019-09-08] MEDS: CYANOCOBALAMIN 500 MCG TAB PO SCH (08:42)
[2019-09-08] MEDS: NICOTINE 21MG/24HR PATCH TRANSDERM SCH (08:42)
[2019-09-08] MEDS: PANTOPRAZOLE 40 MG/10 ML VIAL IV SCH (08:42)
[2019-09-08] MEDS: ASPIRIN 325 MG TAB PO SCH (08:42)
--- NOTE | 2019-09-08 09:03 | US ---
EXAMINATION TYPE: US gallbladder DATE OF EXAM: 09/08/2019 COMPARISON: CT 09/07/2019, US 03/08/2019 CLINICAL HISTORY: cholecystitis. Difficult exam due to patient body habitus EXAM MEASUREMENTS: Liver Length: 18.1 cm as measured, is enlarged as noted on CT Gallbladder Wall: 0.7 cm CBD: 0.4 cm Right Kidney: 10.1 x 6.0 x 5.4 cm Pancreas: Obscured by bowel gas Liver: Attenuating, enlarged, heterogeneous. Dilated ducts Gallbladder: Wall is thickened with pericholecystic fluid Evidence for sonographic Allen's sign: No CBD: wnl Right Kidney: No hydronephrosis or masses seen as visualized, limited exam IMPRESSION: Correlate for cholecystitis and for hepatic steatosis, hepatocellular disease. Exam is shabbir monzon.
--- NOTE | 2019-09-08 10:07 | P.PN ---
Subjective Progress Note Date: 09/07/19 Principal diagnosis: gram-negative bacilli bacteremia. Salmonella enteridis Patient is a 29-year-old male who prefers to be referenced to his female, history of migraine headaches, ongoing nicotine addiction and recent history of salmonella enteritis bacteremia initially in the blood cultures on 08/13/2019. Patient took antibiotics in the form of Levaquin for 2 weeks which was completed about a week ago. Patient was seen in the ER yesterday and blood culture was sent. Patient's blood cultures came back positive for gram-negative bacilli. Patient came back to the hospital today due to complaints of bilateral lower extremity weakness and had a syncopal episode and passed out in the bathroom floor. Patient states that her sister woke her up when she was knocking on the door. Patient states that she passed out for about 2 hours. Denied any complaints of chest pain or shortness of breath. Patient states that she is feeling very tired. She has been using walker and his right leg has been giving out. Patient was seen in the ER yesterday due to syncopal episode and generalized weakness. CT head showed no acute process. Chest x-ray was negative and patient was febrile. Blood culture was sent at that time. EKG showed sinus tachycardia. Laboratory data showed WBC 2.9, hemoglobin 11.0, platelets 105. Sodium 133, potassium 3.6, lactic acid 1.2, bilirubin total 0.9, AST 91, ALT 53, troponin x1-, CRP 163.7 and albumin 3.3 HIV 1 reactive, HIV P 24 antibody reactive. UA negative for infection. 09/07/2019 Patient is currently sitting on the bed comfortably. Currently being continued on antibiotics in thes the form of levofloxacin.changed to ceftriaxone as per ID recommendations. Repeat blood cultures negative growth so far. Initial cultures on 09/05/2019 showed Salmonella. Continue with the repeat blood cultures daily until negative. Patient had MRI of the brain and 2-D echocardiogram as well as EEG was done. Neurology is on board. He reports reviewed. Patient is also tested positive for new onset HIV antibody antigen. CD4 count, viral genotype and titers will be ordered.ID is on board. Patient has been afebrile. Bilateral lower extremity weakness is better. Tolerating oral diet slowly. Does have nausea. No sinus or vomiting. No abdominal pain or diarrhea. No commerce of chest pain or shortness of breath. Current medications reviewed. Objective - Vital Signs Vital signs: Vital Signs Temp 98.3 F 09/07/19 19:15 Pulse 105 H 09/07/19 19:15 Resp 22 09/07/19 19:15 BP 130/81 09/07/19 19:15 Pulse Ox 100 09/07/19 19:15 Intake & Output 09/07/19 09/07/19 09/08/19 06:59 18:59 06:59 Intake Total 600 800 Balance 600 800 Intake: IV 600 800 Sodium Chloride 0.9% 1, 600 800 000 ml @ 130 mls/hr IV . Q7H42M [facility] Rx#:[id number] Other: # Voids 1 - Labs CBC & Chem 7: 09/07/19 07:00 09/07/19 07:00 Labs: Abnormal Lab Results - Last 24 Hours (Table) 09/07/19 09/07/19 09/07/19 Range/Units 07:00 07:00 07:00 WBC 2.2 L (3.8-10.6) k/uL RBC 3.32 L (4.30-5.90) m/uL Hgb 9.6 L (13.0-17.5) gm/dL Hct 28.4 L (39.0-53.0) % Plt Count 101 L (150-450) k/uL Lymphocytes # 0.2 L (1.0-4.8) k/uL Sodium 134 L (137-145) mmol/L Creatinine 0.64 L (0.66-1.25) mg/dL Glucose 176 H (74-99) mg/dL Hemoglobin A1c 9.4 H (4.0-6.0) % Calcium 7.4 L (8.4-10.2) mg/dL Triglycerides 290 H (<150) mg/dL HDL Cholesterol 9 L (40-60) mg/dL Microbiology - Last 24 Hours (Table) 09/06/19 11:40 Blood Culture Gram Stain - Preliminary Blood Blood Culture - Preliminary Gram Neg Bacilli 09/06/19 11:40 Blood Culture - Final Blood Assessment and Plan Assessment: Sepsis secondary to gram-negative bacilli bacteremia Recent history of Salmonella enteritis bacteremia Acute syncopal episode. Rule out seizures versus septic emboli.negative for MRI.negative for acute CVA. demyelination shown in theMRI brainlikely due to HIV. Newly diagnosed HIV infection. CD4 count pending. Bilateral lower extremity weakness Neutropenia And thrombocytopenia Migraine headaches History of MRSA axilla abscess Plan: Patient is being continued on antibiotics in the form of ceftriaxonen. Follow- up repeat blood cultures. ID service is following. Neurology was consulted due to bilateral lower extremity weakness and syncopal episode. MRI of the brain was ordered to rule out septic emboli, 2D echocardiogram and EEG was ordered.no evidence of septic emboli. Patient was started on aspirin 81 mg daily. Patient does have new onset HIV infection. Continue to follow closely and further recommendations based on the clinical course. prognosis is guarded. Time with Patient: Greater than 30
--- NOTE | 2019-09-08 11:29 | P.PN ---
Subjective Progress Note Date: 09/07/19 Patient offers no new complaints. Denies headache. Patient states leg weakness has improved. States had undergone a lot of testing since yesterday. Denies any significant back pain. Objective - Vital Signs Vital signs: Vital Signs Temp 98.3 F 09/07/19 19:15 Pulse 105 H 09/07/19 19:15 Resp 22 09/07/19 19:15 BP 130/81 09/07/19 19:15 Pulse Ox 100 09/07/19 19:15 Intake & Output 09/07/19 09/07/19 09/08/19 06:59 18:59 06:59 Intake Total 600 800 Balance 600 800 Intake: IV 600 800 Sodium Chloride 0.9% 1, 600 800 000 ml @ 130 mls/hr IV . Q7H42M [facility] Rx#:[id number] Other: # Voids 1 - Exam Patient's mental status, speech and language functions are stable. Patient has an unusual affect. Muscle strength is normal in the arms and legs except hip flexion which is 4 bilaterally. Patient able to get up from bed, walks without difficulty. Denies any back pain. - Labs CBC & Chem 7: 09/07/19 07:00 09/07/19 07:00 Labs: Abnormal Lab Results - Last 24 Hours (Table) 09/07/19 09/07/19 09/07/19 Range/Units 07:00 07:00 07:00 WBC 2.2 L (3.8-10.6) k/uL RBC 3.32 L (4.30-5.90) m/uL Hgb 9.6 L (13.0-17.5) gm/dL Hct 28.4 L (39.0-53.0) % Plt Count 101 L (150-450) k/uL Lymphocytes # 0.2 L (1.0-4.8) k/uL Sodium 134 L (137-145) mmol/L Creatinine 0.64 L (0.66-1.25) mg/dL Glucose 176 H (74-99) mg/dL Hemoglobin A1c 9.4 H (4.0-6.0) % Calcium 7.4 L (8.4-10.2) mg/dL Triglycerides 290 H (<150) mg/dL HDL Cholesterol 9 L (40-60) mg/dL Microbiology - Last 24 Hours (Table) 09/06/19 11:40 Blood Culture Gram Stain - Preliminary Blood Blood Culture - Preliminary Gram Neg Bacilli 09/06/19 11:40 Blood Culture - Final Blood Assessment and Plan Assessment: * Recurrent septicemia from gram-negative bacilli, Salmonella Entertidis. Rule out bacterial endocarditis. * Salmonella septicemia. * Newly diagnosed HIV positive status. CD4 count pending. * Leukopenia and neutropenia likely because of HIV status. * Diabetes, uncontrolled with A1c 9.4. * Elevated LFTs, possible cholecystitis * B12 deficiency, with level 285 Plan: * MRI of the brain with and without contrast revealed correlation for demyelination. No acute intracranial processes identified. No pathologic enhancement. On my review, there is evidence of white matter signal abnormality predominantly in the bifrontal centrum semiovale, as well as in the mid deloris. * 2-D echo showed EF 55-60%. Normal left atrial size. Borderline LVH. No evidence of vegetations on the 2-D echo. * EEG was borderline abnormal due to minimal background slowing. This is suggestive of nonspecific generalized cerebral dysfunction, that may be related to encephalopathy. No epileptiform activity was seen. * B12 285, folate 8.3, B6, B1 level. * HIV-positive, CD4 count pending. * Hemoglobin A1c 9.4, suggestive of poorly controlled diabetes. * Lipid panel with cholesterol 89, LDL cannot be checked because triglyceride is 290. HDL 9. * Start aspirin 81 mg daily. * Infectious disease following the patient.
[2019-09-08 13:07] VITALS: BMI 35.7
[2019-09-08] MEDS: ALPRAZolam 0.5 MG TAB PO PRN (15:18)
--- NOTE | 2019-09-08 17:11 | P.GSCN ---
History of Present Illness Consult date: 09/08/19 Reason for Consult: Cholecystitis History of present illness: This a 29-year-old transgender female who presented to the hospital complaints of abdominal pain and workup of syncopal episode. Patient's workup found have evidence of cholecystitis. She has had complaints of pain in the right upper quadrant. Past Medical History Additional Past Medical History / Comment(s): migraines History of Any Multi-Drug Resistant Organisms: MRSA Year Discovered:: 07/27/18 MDRO Source:: AXILLA Past Surgical History: No Surgical Hx Reported Past Psychological History: No Psychological Hx Reported Smoking Status: Current every day smoker Past Alcohol Use History: Rare Past Drug Use History: None Reported - Past Family History Mother Family Medical History: CVA/TIA, Liver Disease Father Family Medical History: Myocardial Infarction ([place]) Medications and Allergies Home Medications Medication Instructions Recorded Confirmed Type Dextroamphetamine/Amphetamine 15 mg PO BID 08/13/19 09/06/19 History [Adderall Xr] Ibuprofen [Motrin] 600 mg PO Q6HR PRN #120 tab 08/13/19 09/06/19 Rx glyBURIDE [Diabeta] 10 mg PO BID 08/13/19 09/06/19 History Ondansetron Odt [Zofran Odt] 8 mg PO DAILY PRN 09/05/19 09/06/19 History Allergies Allergy/AdvReac Type Severity Reaction Status Date / Time Penicillins Allergy Unknown Verified 09/06/19 14:20 Childhood Surgical - Exam Vital Signs Temp Pulse Resp BP Pulse Ox 101.0 F H 117 H 18 137/76 98 09/06/19 11:08 09/06/19 11:08 09/06/19 11:08 09/06/19 11:08 09/06/19 11:08 - General well developed, well nourished, no distress - Eyes PERRL - ENT normal pinna - Neck no masses - Respiratory normal expansion - Cardiovascular Rhythm: regular - Abdomen Mild right upper quadrant pain Abdomen: soft Results - Labs 09/07/19 07:00 09/07/19 07:00 Abnormal Lab Results - Last 24 Hours (Table) 09/07/19 09/08/19 09/08/19 Range/Units 07:00 08:25 08:25 ESR 62 H (0-15) mm/hr C-Reactive Protein 141.4 H (<10.0) mg/L Vitamin B6 3 L (5-50) ug/L Microbiology - Last 24 Hours (Table) 09/06/19 11:40 Blood Culture Gram Stain - Preliminary Blood Blood Culture - Preliminary Gram Neg Bacilli - Imaging US - abdomen: report reviewed (Thickened gallbladder wall with pericholecystic fluid) Assessment and Plan Assessment: Acute cholecystitis. Patient will undergo laparoscopic cholecystectomy in the a.m.
--- NOTE | 2019-09-08 17:48 | PN ---
PROGRESS NOTE DATE OF SERVICE: 09/08/2019 REASON FOR FOLLOWUP: Salmonella bacteremia. INTERVAL HISTORY: The patient did spike a low-grade fever of 99.9 this morning. The patient has been afebrile since then. The patient overall is feeling better and has been anxious and wants to go home. No chest pain, shortness of breath or cough. No abdominal pain or any diarrhea. PHYSICAL EXAMINATION: Blood pressure is 143/66, pulse of 91, temperature 99. He is 98% on room air. General description is a middle-aged male lying in bed in no distress. RESPIRATORY SYSTEM: Unlabored breathing. Clear to auscultation anteriorly. HEART: S1, S2. Regular rate and rhythm. ABDOMEN: Soft. No tenderness. LABS: Sedimentation rate of 62, CRP of 141. Blood culture with Gram-negative bacilli. DIAGNOSTIC IMPRESSION AND PLAN: Patient with salmonella bacteremia, recurrent; source questionably cholecystitis, with ultrasound suspicious for the same. Surgery was consulted. Continue with Rocephin and monitor clinical course closely. MMODL / IJN: [id number] /
--- NOTE | 2019-09-08 19:34 | P.PN ---
Subjective Progress Note Date: 09/08/19 Patient offers no new complaints. Denies headache. Patient states leg weakness has improved. Patient denies any back pain. Walking fairly stable. Undergoing cholecystectomy. Objective - Vital Signs Vital signs: Vital Signs Temp 99.0 F 09/08/19 14:58 Pulse 91 09/08/19 14:58 Resp 16 09/08/19 14:58 BP 143/66 09/08/19 14:58 Pulse Ox 98 09/08/19 14:58 Intake & Output 09/08/19 09/08/19 09/09/19 06:59 18:59 06:59 Intake Total 800 540 Balance 800 540 Weight 106.594 kg Intake: IV 800 Sodium Chloride 0.9% 1, 800 000 ml @ 130 mls/hr IV . Q7H42M [facility] Rx#:[id number] Oral 540 Other: Voiding Method Toilet Urinal # Voids 2 - Exam Patient's mental status, speech and language functions are stable. Patient has an unusual affect. Muscle strength is normal in the arms and legs except hip flexion which is 4+ bilaterally. Patient able to get up from bed, walks without difficulty. Denies any back pain. - Labs CBC & Chem 7: 09/07/19 07:00 09/07/19 07:00 Labs: Abnormal Lab Results - Last 24 Hours (Table) 09/07/19 09/08/19 09/08/19 Range/Units 07:00 08:25 08:25 ESR 62 H (0-15) mm/hr C-Reactive Protein 141.4 H (<10.0) mg/L Vitamin B6 3 L (5-50) ug/L Microbiology - Last 24 Hours (Table) 09/06/19 11:40 Blood Culture Gram Stain - Preliminary Blood Blood Culture - Preliminary Gram Neg Bacilli Assessment and Plan Assessment: * Recurrent septicemia from gram-negative bacilli, Salmonella Entertidis. No evidence of bacterial endocarditis. * Salmonella septicemia. Possible from gallbladder source. * Newly diagnosed HIV positive status. CD4 count pending. * Leukopenia and neutropenia likely because of HIV status. * Diabetes, uncontrolled with A1c 9.4. * Elevated LFTs, possible cholecystitis * B12 deficiency, with level 285 Plan: * Patient to undergo cholecystectomy for possible source of Salmonella bacteremia. * MRI of the brain with and without contrast revealed correlation for demyelination. No acute intracranial processes identified. No pathologic enhancement. On my review, there is evidence of white matter signal abnormality predominantly in the bifrontal centrum semiovale, as well as in the mid deloris. * 2-D echo showed EF 55-60%. Normal left atrial size. Borderline LVH. No e vidence of vegetations on the 2-D echo. * EEG was borderline abnormal due to minimal background slowing. Probably due to mild encephalopathy. No epileptiform activity seen. * B12 285, folate 8.3, B6 3 which is low, B1 level still pending. We will start B12 and B6 replacement. * HIV-positive, CD4 count pending. Patient is COVID negative. Appreciate ID input. * Hemoglobin A1c 9.4, suggestive of poorly controlled diabetes. * Lipid panel with cholesterol 89, LDL cannot be checked because triglyceride is 290. HDL 9. * Start aspirin 81 mg daily.
[2019-09-08] MEDS: CYANOCOBALAMIN 1,000 MCG/ML 1 ML VIAL IM SCH (20:53)
[2019-09-09 00:46] LABS: Hepatitis A Antibody IgM Non-Reactive (Non-Reactive); Hepatitis B Core IgM Non-Reactive (Non-Reactive); Hepatitis B Surface Antigen Non-Reactive (Non-Reactive); Hepatitis C IgG Antibody Non-Reactive (Non-Reactive)
--- NOTE | 2019-09-09 00:46 | P.PN ---
Subjective Progress Note Date: 09/08/19 Principal diagnosis: gram-negative bacilli bacteremia. Salmonella enteridis Patient is a 29-year-old male who prefers to be referenced to his female, history of migraine headaches, ongoing nicotine addiction and recent history of salmonella enteritis bacteremia initially in the blood cultures on 08/13/2019. Patient took antibiotics in the form of Levaquin for 2 weeks which was completed about a week ago. Patient was seen in the ER yesterday and blood culture was sent. Patient's blood cultures came back positive for gram-negative bacilli. Patient came back to the hospital today due to complaints of bilateral lower extremity weakness and had a syncopal episode and passed out in the bathroom floor. Patient states that her sister woke her up when she was knocking on the door. Patient states that she passed out for about 2 hours. Denied any complaints of chest pain or shortness of breath. Patient states that she is feeling very tired. She has been using walker and his right leg has been giving out. Patient was seen in the ER yesterday due to syncopal episode and generalized weakness. CT head showed no acute process. Chest x-ray was negative and patient was febrile. Blood culture was sent at that time. EKG showed sinus tachycardia. Laboratory data showed WBC 2.9, hemoglobin 11.0, platelets 105. Sodium 133, potassium 3.6, lactic acid 1.2, bilirubin total 0.9, AST 91, ALT 53, troponin x1-, CRP 163.7 and albumin 3.3 HIV 1 reactive, HIV P 24 antibody reactive. UA negative for infection. 09/07/2019 Patient is currently sitting on the bed comfortably. Currently being continued on antibiotics in thes the form of levofloxacin.changed to ceftriaxone as per ID recommendations. Repeat blood cultures negative growth so far. Initial cultures on 09/05/2019 showed Salmonella. Continue with the repeat blood cultures daily until negative. Patient had MRI of the brain and 2-D echocardiogram as well as EEG was done. Neurology is on board. He reports reviewed. Patient is also tested positive for new onset HIV antibody antigen. CD4 count, viral genotype and titers will be ordered.ID is on board. Patient has been afebrile. Bilateral lower extremity weakness is better. Tolerating oral diet slowly. Does have nausea. No sinus or vomiting. No abdominal pain or diarrhea. No commerce of chest pain or shortness of breath. 09/08/2019 Patient is currently lying in the bed comfortably. Due to recurrent Salmonella bacteremia possible cholecystitis is being considered. CT of the abdomen and pelvis showed gallbladder distention with margins suspected abdominal gallbladder wall thickening. Acute cholecystitis needs to be considered. Small amount of free fluid in the pelvis of uncertain etiology Persistent hepatosplenomegaly and fatty infiltration of liver. Ultrasound of the abdomen was done showed correlate for cholecystitis and for hepatic steatosis, hepatocellular disease. General surgery was consulted and planning for cholecystectomy. Patient has been afebrile. Repeat cultures showing gram-negative bacilli. Currently on antibiotics in the form of ceftriaxone. Neurology and ID is on board. Current medications reviewed. Objective - Vital Signs Vital signs: Vital Signs Temp 99.0 F 09/08/19 14:58 Pulse 91 09/08/19 14:58 Resp 16 09/08/19 14:58 BP 143/66 09/08/19 14:58 Pulse Ox 98 09/08/19 14:58 Intake & Output 09/07/19 09/08/19 09/08/19 18:59 06:59 18:59 Intake Total 800 540 Balance 800 540 Weight 106.594 kg Intake: IV 800 Sodium Chloride 0.9% 1, 800 000 ml @ 130 mls/hr IV . Q7H42M [facility] Rx#:[id number] Oral 540 Other: Voiding Method Toilet Urinal # Voids 1 2 - Exam PHYSICAL EXAMINATION: Patient is lying in the bed comfortably, no acute distress, awake alert and oriented.. HEENT: Normocephalic. Neck is supple. Pupils reactive. Nostrils clear. Oral cavity is moist. Ears reveal no drainage. Neck reveals no JVD, carotid bruits, or thyromegaly. CHEST EXAMINATION: Trachea is central. Symmetrical expansion. Lung perdomo clear to auscultation and percussion. CARDIAC: Normal S1, S2 with no gallops. No murmurs ABDOMEN: Soft. Bowel sounds normal. No organomegaly. No abdominal bruits. Extremities: reveal no edema. No clubbing or cyanosis Neurologically awake, alert, oriented x3 with well-coordinated movements. No focal deficits noted Skin: No rash or skin lesions. Psychiatric: Coperative. Nonsuicidal Musculoskeletal: No joint swelling or deformity. Normal range of motion. - Labs CBC & Chem 7: 09/07/19 07:00 09/07/19 07:00 Labs: Abnormal Lab Results - Last 24 Hours (Table) 09/07/19 09/08/19 09/08/19 Range/Units 07:00 08:25 08:25 ESR 62 H (0-15) mm/hr C-Reactive Protein 141.4 H (<10.0) mg/L Vitamin B6 3 L (5-50) ug/L Microbiology - Last 24 Hours (Table) 09/06/19 11:40 Blood Culture Gram Stain - Preliminary Blood Blood Culture - Preliminary Gram Neg Bacilli Assessment and Plan Assessment: Sepsis secondary to gram-negative bacilli bacteremia Recent history of Salmonella enteritis bacteremia. Possible gallbladder source is being considered. Cholecystitis as per CT abdomen pelvis. Acute syncopal episode. Rule out seizures versus septic emboli.negative for MRI.negative for acute CVA. demyelination shown in theMRI brainlikely due to HIV. Newly diagnosed HIV infection. CD4 count pending. Bilateral lower extremity weakness Neutropenia And thrombocytopenia Migraine headaches History of MRSA axilla abscess Plan: Patient is being continued on antibiotics in the form of ceftriaxonen. Follow- up repeat blood cultures. ID service is following. General surgery was con sulted and is planning for cholecystectomy. Neurology was consulted due to bilateral lower extremity weakness and syncopal episode. MRI of the brain was ordered to rule out septic emboli, 2D echocardiogram and EEG was ordered.no evidence of septic emboli. Patient was started on aspirin 81 mg daily. Patient does have new onset HIV infection. Continue to follow closely and further recommendations based on the clinical course. prognosis is guarded. Time with Patient: Greater than 30
[2019-09-09] MEDS: SODIUM CHLORIDE 0.9% 1,000 ML IV SCH ×3 (03:04→18:24)
[2019-09-09] MEDS: ASPIRIN 325 MG TAB PO SCH (07:57)
[2019-09-09 09:04] LABS: African American GFR (CKD) >90 (>60 ml/min/1.73 sqM); Anion Gap 4 mmol/L; Blood Urea Nitrogen 10 mg/dL (9-20); Calcium 8.2 mg/dL (8.4-10.2); Carbon Dioxide 25 mmol/L (22-30); Chloride 108 mmol/L (98-107); Glucose 151 mg/dL (74-99); Non-African American GFR(CKD) >90 (>60 ml/min/1.73 sqM); Potassium 4.1 mmol/L (3.5-5.1); Sodium 137 mmol/L (137-145)
[2019-09-09 09:18] LABS: Basophils % (A) 1 %; Eosinophils # (A) 0.1 k/uL (0-0.7); Eosinophils % (A) 5 %; HCT 30.2 % (39.0-53.0); HGB 10.1 gm/dL (13.0-17.5); Lymphocytes # (A) 0.4 k/uL (1.0-4.8); Lymphocytes % (A) 16 %; MCH 28.5 pg (25.0-35.0); MCHC 33.3 g/dL (31.0-37.0); Mean Platelet Volume 9.7; Monocytes # (A) 0.2 k/uL (0-1.0); Monocytes % (A) 7 %; Neutrophils # (A) 1.6 k/uL (1.3-7.7); Neutrophils % (A) 69 %; Platelet Count 133 k/uL (150-450); Poikilocytosis Slight; RBC 3.53 m/uL (4.30-5.90); RDW 14.5 % (11.5-15.5); WBC 2.3 k/uL (3.8-10.6)
[2019-09-09 09:19] LABS: MCV 85.6 fL (80.0-100.0)
[2019-09-09] MEDS: CYANOCOBALAMIN 1,000 MCG/ML 1 ML VIAL IM SCH (09:33)
[2019-09-09] MEDS: PANTOPRAZOLE 40 MG/10 ML VIAL IV SCH (09:33)
[2019-09-09] MEDS: NICOTINE 21MG/24HR PATCH TRANSDERM SCH (09:33)
[2019-09-09] MEDS: PYRIDOXINE 50 MG TAB PO SCH (12:57)
--- NOTE | 2019-09-09 15:32 | P.PN ---
Subjective Progress Note Date: 09/09/19 Patient offers no new complaints. Denies headache. Patient states leg weakness has improved. Patient denies any back pain. Walking fairly stable. Undergoing cholecystectomy soon. Objective - Vital Signs Vital signs: Vital Signs Temp 98.7 F 09/09/19 14:41 Pulse 93 09/09/19 14:41 Resp 19 09/09/19 14:41 BP 148/99 09/09/19 14:41 Pulse Ox 98 09/09/19 14:41 Intake & Output 09/08/19 09/09/19 09/09/19 18:59 06:59 18:59 Intake Total 540 Balance 540 Weight 106.594 kg Intake: Oral 540 Other: Voiding Method Toilet Toilet Urinal Urinal # Voids 2 1 2 - Exam Patient's mental status, speech and language functions are stable. Patient has an unusual affect. Muscle strength is normal in the arms and legs except right hip flexion, which is 4+ to 5-on the right, 5-on the left, better than yesterday. Patient able to get up from bed, walks without difficulty. Patient has a slight spastic gait. Reflexes are 2 in the upper limbs, 3+ in the lower limbs and plantars are upgoing bilaterally. Patient walks steadily, although has mild spastic gait. Denies any back pain. Denies spinal percussion tenderness. Patient does have a rash over the left lower buttock, which possibly occurred from his fall. - Labs CBC & Chem 7: 09/09/19 08:27 09/09/19 08:27 Labs: Abnormal Lab Results - Last 24 Hours (Table) 09/09/19 09/09/19 Range/Units 08:27 08:27 WBC 2.3 L (3.8-10.6) k/uL RBC 3.53 L (4.30-5.90) m/uL Hgb 10.1 L (13.0-17.5) gm/dL Hct 30.2 L (39.0-53.0) % Plt Count 133 L (150-450) k/uL Lymphocytes # 0.4 L (1.0-4.8) k/uL Chloride 108 H (98-107) mmol/L Creatinine 0.47 L (0.66-1.25) mg/dL Glucose 151 H (74-99) mg/dL Calcium 8.2 L (8.4-10.2) mg/dL Microbiology - Last 24 Hours (Table) 09/08/19 08:25 Blood Culture - Preliminary Blood No Growth after 24 hours 09/06/19 11:40 Blood Culture Gram Stain - Final Blood Blood Culture - Final Salmonella enteritidis Assessment and Plan Assessment: * Syncopal spell, unclear etiology. Possible vasovagal. * Leg weakness with spasticity, possible due to B12 and B6 deficiency. * Recurrent septicemia from gram-negative bacilli, Salmonella Entertidis. Possible gallbladder source. No evidence of bacterial endocarditis. * Newly diagnosed HIV positive status. CD4 count pending. * Leukopenia and neutropenia likely because of HIV status. * Diabetes, uncontrolled with A1c 9.4. * Elevated LFTs, possible cholecystitis * B12 deficiency, with level 285 * Vitamin B6 deficiency Plan: * Patient's spasticity is possibly due to B12 deficiency, on B12 replacement. Also has B6 deficiency. We will check RPR, MRI of the lumbosacral spine. Discussed with infectious disease. * Patient to undergo cholecystectomy soon for possible source of Salmonella b acteremia. * MRI of the brain with and without contrast revealed correlation for demyelination. No acute intracranial processes identified. No pathologic enhancement. On my review, there is evidence of white matter signal abnormality predominantly in the bifrontal centrum semiovale, as well as in the mid deloris. Discussed with patient about lumbar puncture, he wants to hold off on it. States he is gradually getting better. * 2-D echo showed EF 55-60%. Normal left atrial size. Borderline LVH. No evidence of vegetations on the 2-D echo. * EEG was borderline abnormal due to minimal background slowing. Probably due to mild encephalopathy. No epileptiform activity seen. * B12 285, folate 8.3, B6 3 which is low, B1 45 normal. We will start B12 and B6 replacement. * HIV-positive, CD4 count pending. Patient is COVID negative. Appreciate ID input. * Hemoglobin A1c 9.4, suggestive of poorly controlled diabetes. * Lipid panel with cholesterol 89, LDL cannot be checked because triglyceride is 290. HDL 9. Hold off statins because of abnormal LFTs.
[2019-09-09] MEDS ORDERED: LACTATED RINGERS 1,000 ML IV ONE (15:35)
[2019-09-09] MEDS: ONDANSETRON 4 MG/2 ML VIAL IVP PRN (15:55)
[2019-09-09] MEDS ORDERED: fentaNYL (PF) 50 MCG/ML 2 ML AMP ONE (16:15)
[2019-09-09] MEDS ORDERED: SUCCINYLCHOLINE CHLORIDE 100 MG/5 ML SYR IV ONE (16:15)
[2019-09-09] MEDS ORDERED: ROCURONIUM BROMIDE 10 MG/ML 5 ML VIAL IV ONE (16:15)
[2019-09-09] MEDS ORDERED: LIDOCAINE 1% INJ 10MG/ML (20 ML MDV) ONE (16:15)
[2019-09-09] MEDS ORDERED: PROPOFOL 10 MG/ML 20 ML VIAL IV ONE (16:15)
[2019-09-09] MEDS ORDERED: NEOSTIGMINE 1 MG/ML 10 ML VIAL ONE (16:15)
[2019-09-09] MEDS ORDERED: GLYCOPYRROLATE 0.2 MG/ML 2 ML VIAL ONE (16:15)
[2019-09-09] MEDS ORDERED: HYDROmorphone (PF) 1 MG/ML ONE (16:15)
[2019-09-09] MEDS ORDERED: MIDAZOLAM 2 MG/2 ML VIAL ONE (16:15)
[2019-09-09] MEDS ORDERED: HEPARIN SODIUM,PORCINE 5,000 UNIT/ML 1 ML VIAL SQ ONE (16:21)
[2019-09-09] MEDS ORDERED: SODIUM CHLORIDE 0.9% 50 ML with ceFAZolin 2,000 MG IV ONE ×2 (16:45)
[2019-09-09] MEDS ORDERED: BUPIVACAIN-EPI 0.25%-1:200,000 30 ML VIAL SQ ONE (16:49)
--- NOTE | 2019-09-09 17:13 | P.OP ---
Date of Procedure: 09/09/19 Preoperative Diagnosis: Cholecystitis Postoperative Diagnosis: Cholecystitis Procedure(s) Performed: Laparoscopic cholecystectomy Anesthesia: ANUSHA Surgeon: Yonatan Garcia Estimated Blood Loss (ml): 5 Pathology: other (Gallbladder) Condition: stable Disposition: PACU Description of Procedure: The patient was placed on the operating table. The patient received a general endotracheal tube anesthesia. The patients abdomen was prepped and draped in the usual sterile fashion. Through an infraumbilical stab incision, the fascia of the anterior abdominal wall was grasped with a pair of Kochers and then the Veress needle was placed in the peritoneal cavity. Position of the Veress needle was confirmed with positive drop test. The abdomen was then insufflated. After adequate insufflation, the 10 mm trocar was placed in the peritoneal cavity. Following this the laparoscope was placed in the peritoneal cavity. The patient was placed in the head-up, right side up position and then a 5 mm trocar was placed in the right lateral and right subcostal position under direct visualization. A 8 mm trocar was placed in the epigastric position. The gallbladder was grasped in the fundus and infundibulum. Traction on the gallbladder was placed in the lateral and the cephalad positions. The triangle of Calot was visualized.. The cystic duct was bluntly dissected until the union of the cystic duct and common bile duct was seen. A critical view of safety was achieved. The cystic duct was then divided and sealed with the Harmonic scissors. A PDS Endoloop was then placed throughout the cystic duct stump. The cystic artery divided and sealed with the Harmonic scissors. The gallbladder was then removed from the liver bed using Harmonic scissors. The gallbladder was then extracted through the epigastric port site. Operative field was checked for any bleeding spots and Harmonic scissors was used to coagulate the liver bed. The abdomen was irrigated. The trocars were removed. The skin was closed using interrupted 3-0 Vicryl suture. Dermabond dressing were applied. The patient tolerated the procedure well.
[2019-09-09] MEDS ORDERED: HYDROmorphone 1 MG/ML 1 ML SYRINGE IVP PRN (17:14)
[2019-09-09 17:56] LABS: HIV-1 RNA DETECTED (Not detected)
--- NOTE | 2019-09-09 18:09 | P.PN ---
Subjective Progress Note Date: 09/09/19 29-year-old male who prefers to be referenced to his female, history of migraine headaches, ongoing nicotine addiction and recent history of salmonella enteritis bacteremia initially in the blood cultures on 08/13/2019. Patient took antibiotics in the form of Levaquin for 2 weeks which was completed about a week ago. Patient was seen in the ER yesterday and blood culture was sent. Patient's blood cultures came back positive for gram-negative bacilli. Patient came back to the hospital today due to complaints of bilateral lower extremity weakness and had a syncopal episode and passed out in the bathroom floor. Patient states that her sister woke her up when she was knocking on the door. Patient states that she passed out for about 2 hours. Denied any complaints of chest pain or shortness of breath. Patient states that she is feeling very tired. She has been using walker and his right leg has been giving out. Patient was seen in the ER yesterday due to syncopal episode and generalized weakness. CT head showed no acute process. Chest x-ray was negative and patient was febrile. Blood culture was sent at that time. 09/09/19 Patient offers no new complaints. Denies headache. Patient states leg weakness has improved. Patient denies any back pain. Walking fairly stable. Undergoing cholecystectomy soon. Patient's spasticity is possibly due to B12 deficiency, on B12 replacement. Also has B6 deficiency. Neurology is recommending to check RPR, MRI of the lumbosacral spine. Patient to undergo cholecystectomy soon for possible source of Salmonella bacteremia. MRI of the brain with and without contrast revealed correlation for demyelination. Neurology is recommending lumbar puncture, he wants to hold off on it. States he is gradually getting better. 2-D echo showed EF 55-60%. Normal left atrial size. Borderline LVH. No evidence of vegetations on the 2-D echo. EEG was borderline abnormal due to minimal background slowing. Probably due to mild encephalopathy. No epileptiform activity seen. Patient will start B12 and B6 replacement. Objective - Vital Signs Vital signs: Vital Signs Temp 98.7 F 09/09/19 07:00 Pulse 98 09/09/19 07:00 Resp 18 09/09/19 07:00 BP 144/91 09/09/19 07:00 Pulse Ox 96 09/09/19 07:00 Intake & Output 09/08/19 09/09/1909/08/20 18:59 06:59 18:59 Intake Total 540 Balance 540 Weight 106.594 kg Intake: Oral 540 Other: Voiding Method Toilet Toilet Urinal Urinal # Voids 2 1 2 - Exam PHYSICAL EXAMINATION: GENERAL: The patient is alert and oriented x3, not in any acute distress. Well developed, well nourished. HEENT: Pupils are round and equally reacting to light. EOMI. No scleral icterus. No conjunctival pallor. Normocephalic, atraumatic. No pharyngeal erythema. No thyromegaly. CARDIOVASCULAR: S1 and S2 present. No murmurs, rubs, or gallops. PULMONARY: Chest is clear to auscultation, no wheezing or crackles. ABDOMEN: Soft, nontender, nondistended, normoactive bowel sounds. No palpable organomegaly. MUSCULOSKELETAL: No joint swelling or deformity. EXTREMITIES: No cyanosis, clubbing, or pedal edema. NEUROLOGICAL: Gross neurological examination did not reveal any focal deficits. SKIN: No rashes. - Labs CBC & Chem 7: 09/09/19 08:27 09/09/19 08:27 Labs: Abnormal Lab Results - Last 24 Hours (Table) 09/09/19 09/09/19 Range/Units 08:27 08:27 WBC 2.3 L (3.8-10.6) k/uL RBC 3.53 L (4.30-5.90) m/uL Hgb 10.1 L (13.0-17.5) gm/dL Hct 30.2 L (39.0-53.0) % Plt Count 133 L (150-450) k/uL Lymphocytes # 0.4 L (1.0-4.8) k/uL Chloride 108 H (98-107) mmol/L Creatinine 0.47 L (0.66-1.25) mg/dL Glucose 151 H (74-99) mg/dL Calcium 8.2 L (8.4-10.2) mg/dL Microbiology - Last 24 Hours (Table) 09/08/19 08:25 Blood Culture - Preliminary Blood No Growth after 24 hours 09/06/19 11:40 Blood Culture Gram Stain - Final Blood Blood Culture - Final Salmonella enteritidis Assessment and Plan Assessment: Sepsis secondary to gram-negative bacilli bacteremia Recent history of Salmonella enteritis bacteremia. Possible gallbladder source is being considered. Cholecystitis as per CT abdomen pelvis. Acute syncopal episode. Rule out seizures versus septic emboli.negative for MRI.negative for acute CVA. demyelination shown in theMRI brainlikely due to HIV. Newly diagnosed HIV infection. CD4 count pending. Bilateral lower extremity weakness Neutropenia And thrombocytopenia Migraine headaches History of MRSA axilla abscess Plan: Patient is being continued on antibiotics in the form of ceftriaxonen. Follow-u p repeat blood cultures. ID service is following. General surgery was consulted and is planning for cholecystectomy. Neurology was consulted due to bilateral lower extremity weakness and syncopal episode. MRI of the brain was ordered to rule out septic emboli, 2D echocardiog desi and EEG was ordered.no evidence of septic emboli. Patient was started on aspirin 81 mg daily. Patient does have new onset HIV infection. Continue to follow closely and further recommendations based on the clinical course. prognosis is guarded.
[2019-09-09] MEDS: ALPRAZolam 0.5 MG TAB PO PRN (18:23)
--- NOTE | 2019-09-09 23:08 | PN ---
PROGRESS NOTE DATE OF SERVICE: 09/09/2019 REASON FOR FOLLOWUP: 1. Salmonella bacteremia, likely cholecystitis. 2. Human immunodeficiency virus. INTERVAL HISTORY: The patient is currently afebrile. He was seen on rounds early this afternoon. Right upper quadrant pain is currently controlled. No chest pain, shortness of breath or cough. No nausea, vomiting, abdominal pain or diarrhea. PHYSICAL EXAMINATION: Blood pressure 128/69 with a pulse of 96, temperature 99. He is 96% on room air. General description is a middle-aged male lying in bed in no distress. RESPIRATORY SYSTEM: Unlabored breathing. Clear to auscultation anteriorly. HEART: S1, S2. Regular rate and rhythm. ABDOMEN: Soft. No tenderness. LABS: Hemoglobin is 10.1, white count 2.3, BUN of 10, creatinine 0.47. Blood culture repeat has been negative so far. DIAGNOSTIC IMPRESSION AND PLAN: 1. Patient with pseudomonas bacteremia, recurrent; possible source could be acute cholecystitis. Scheduled for cholecystectomy this afternoon. Patient to continue with Rocephin. Monitor clinical course closely. 2. Patient with human immunodeficiency virus. Workup is currently pending. Once culture is sent over, will start him on his antiretroviral. Questions and concerns were answered. MMODL / IJN: [id number] /
[2019-09-10] MEDS: HYDROcodone/APAP 7.5-325MG 1 EACH TAB PO PRN ×3 (04:41→18:04)
[2019-09-10] MEDS: ALPRAZolam 0.5 MG TAB PO PRN ×2 (06:25→15:50)
[2019-09-10 08:03] LABS: African American GFR (CKD) >90 (>60 ml/min/1.73 sqM); Anion Gap 5 mmol/L; Blood Urea Nitrogen 8 mg/dL (9-20); Calcium 7.9 mg/dL (8.4-10.2); Carbon Dioxide 25 mmol/L (22-30); Chloride 106 mmol/L (98-107); Glucose 242 mg/dL (74-99); Non-African American GFR(CKD) >90 (>60 ml/min/1.73 sqM); Sodium 136 mmol/L (137-145)
[2019-09-10] MEDS: SODIUM CHLORIDE 0.9% 1,000 ML IV SCH ×3 (08:15→17:17)
[2019-09-10] MEDS: PYRIDOXINE 50 MG TAB PO SCH (08:26)
[2019-09-10] MEDS: PANTOPRAZOLE 40 MG/10 ML VIAL IV SCH (08:26)
[2019-09-10] MEDS: CYANOCOBALAMIN 1,000 MCG/ML 1 ML VIAL IM SCH (08:26)
[2019-09-10] MEDS: NICOTINE 21MG/24HR PATCH TRANSDERM SCH (08:27)
[2019-09-10 08:29] LABS: Basophils % (A) 1 %; Eosinophils # (A) 0.1 k/uL (0-0.7); Eosinophils % (A) 7 %; HCT 28.4 % (39.0-53.0); HGB 9.8 gm/dL (13.0-17.5); Hypochromasia Slight; Lymphocytes # (A) 0.4 k/uL (1.0-4.8); Lymphocytes % (A) 20 %; MCH 29.8 pg (25.0-35.0); MCHC 34.4 g/dL (31.0-37.0); MCV 86.6 fL (80.0-100.0); Mean Platelet Volume 9.4; Monocytes # (A) 0.2 k/uL (0-1.0); Monocytes % (A) 7 %; Neutrophils # (A) 1.2 k/uL (1.3-7.7); Neutrophils % (A) 62 %; Platelet Count 166 k/uL (150-450); Poikilocytosis Slight; RBC 3.27 m/uL (4.30-5.90); RDW 15.2 % (11.5-15.5)
[2019-09-10 09:49] VITALS: RESP 16
--- NOTE | 2019-09-10 12:31 | P.PN ---
Subjective Progress Note Date: 09/10/19 CHIEF COMPLAINT: Acute cholecystitis HISTORY OF PRESENT ILLNESS: The patient is a 29-year-old male transitioning to female who is postop day 1 status post cholecystectomy, 09/09/19. She/he is tolerating diet. "I want to go home!" ROS: No reports of nausea and vomiting. No fevers or chills. No new chest pain. PHYSICAL EXAM: VITAL SIGNS: Reviewed CONSTITUTIONAL: Well developed and in no acute distress. EYES: Conjuctivae without sclera icterus. Extraocular movements grossly intact. HEAD, EARS, NOSE, THROAT: Moist buccal mucosa. Head is atraumatic, normocephalic. Hears conversational speech. No nasal drainage. NECK: Supple. No thyroidomegaly. RESPIRATORY: Non-labored respirations and equal bilateral excursions. CARDIOVASCULAR: Palpable 2+ radial pulses. ABDOMEN: Incisions clean dry and intact. Soft. No peritonitis. MUSCULOSKELETAL: No gross deformity of the lower extremities noted. No clubbing. No cyanosis. SKIN: Good skin turgor. Well perfused. NEUROLOGIC: Cranial nerves II through XII grossly intact. No focal or lateralizing signs. PSYCH: Appropriate affect. Alert and oriented to person, place and time. CLINICAL LABS: White blood cell count low 2.0. Hgb 10.1 down to 9.8. ASSESSMENT: 1. Acute cholecystitis 2. Leukopenia PLAN: 1. Still pending final assessment from infectious disease for antibiotics management. 2. Agreeable with discharge once cleared by medicine Objective - Vital Signs Vital signs: Vital Signs Temp 97.8 F 09/10/19 08:25 Pulse 93 09/10/19 08:25 Resp 16 09/10/19 08:25 BP 141/90 09/10/19 08:25 Pulse Ox 99 09/10/19 08:25 Intake & Output 09/09/19 09/10/19 09/10/19 18:59 06:59 18:59 Intake Total 650 400 Output Total 5 Balance 645 400 Intake: IV 650 Oral 400 Output: Estimated Blood Loss 5 Other: Voiding Method Toilet Urinal # Voids 2 1 1 - Labs CBC & Chem 7: 09/10/19 07:11 09/10/19 07:11 Labs: Abnormal Lab Results - Last 24 Hours (Table) 09/08/19 09/10/19 09/10/19 Range/Units 08:29 07:11 07:11 WBC 2.0 L (3.8-10.6) k/uL RBC 3.27 L (4.30-5.90) m/uL Hgb 9.8 L (13.0-17.5) gm/dL Hct 28.4 L (39.0-53.0) % Neutrophils # 1.2 L (1.3-7.7) k/uL Lymphocytes # 0.4 L (1.0-4.8) k/uL Sodium 136 L (137-145) mmol/L BUN 8 L (9-20) mg/dL Creatinine 0.44 L (0.66-1.25) mg/dL Glucose 242 H (74-99) mg/dL Calcium 7.9 L (8.4-10.2) mg/dL HIV-1 RNA Quant 748,297 H (<40) Copies/mL HIV RNA logcopies/mL Ult 5.87 H (<1.60) HIV-1 RNA (PCR) DETECTED H (Not detected) Microbiology - Last 24 Hours (Table) 09/08/19 08:25 Blood Culture - Preliminary Blood No Growth after 48 hours 09/09/19 08:27 Blood Culture - Preliminary Blood No Growth after 24 hours Assessment and Plan (1) Cholecystitis Current Visit: Yes Status: Acute Code(s): K81.9 - CHOLECYSTITIS, UNSPECIFIED SNOMED Code(s): 55323250 (2) HIV (human immunodeficiency virus infection) Current Visit: Yes Status: Acute Code(s): B20 - HUMAN IMMUNODEFICIENCY VIRUS [HIV] DISEASE SNOMED Code(s): 84433015 (3) Leukopenia Current Visit: Yes Status: Acute Code(s): D72.819 - DECREASED WHITE BLOOD CELL COUNT, UNSPECIFIED SNOMED Code(s): 22070075 (4) Salmonella bacteremia Current Visit: Yes Status: Acute Code(s): R78.81 - BACTEREMIA SNOMED Code(s): 750731658
[2019-09-10] MEDS: ONDANSETRON 4 MG/2 ML VIAL IVP PRN (20:11)
--- NOTE | 2019-09-10 21:12 | PN ---
PROGRESS NOTE DATE OF SERVICE: 09/10/2019 REASON FOR FOLLOWUP: 1. Salmonella bacteremia and acute cholecystitis. 2. HIV. INTERVAL HISTORY: The patient is currently afebrile. The patient is breathing comfortably. Denies having any chest pain. No shortness of breath or cough. No nausea, vomiting. Abdominal pain is currently controlled. No diarrhea. PHYSICAL EXAMINATION: Blood pressure 143/91 with a pulse of 74, temperature 98.5. He is 98% on room air. GENERAL DESCRIPTION: The patient is a middle-aged male lying in bed in no distress. RESPIRATORY system: Unlabored breathing, clear to auscultation anteriorly. HEART S1, S2. Regular rate and rhythm. ABDOMEN: Soft, no tenderness. LABS: Hemoglobin is 9.8, white count of 2.0, BUN of 8, creatinine 0.44. DIAGNOSTIC IMPRESSION AND PLAN: 1. Patient with acute salmonella bacteremia source cholecystitis, status post laparoscopic cholecystectomy. Follow-up blood cultures 09/07 and 09/08 have been negative. The patient on Rocephin, to continue dose today and tomorrow before transition to oral antibiotic. 2. HIV. Treatment will be discussed once the genotype and rest of the blood work is completed. MMODL / IJN: [id number] /
[2019-09-11] MEDS: HYDROcodone/APAP 7.5-325MG 1 EACH TAB PO PRN ×2 (02:54→09:07)
[2019-09-11] MEDS: SODIUM CHLORIDE 0.9% 1,000 ML IV SCH ×2 (05:35→09:05)
[2019-09-11 08:48] LABS: African American GFR (CKD) >90 (>60 ml/min/1.73 sqM); Anion Gap 4 mmol/L; Blood Urea Nitrogen 6 mg/dL (9-20); Calcium 8.2 mg/dL (8.4-10.2); Carbon Dioxide 27 mmol/L (22-30); Chloride 107 mmol/L (98-107); Glucose 317 mg/dL (74-99); Non-African American GFR(CKD) >90 (>60 ml/min/1.73 sqM); Potassium 4.3 mmol/L (3.5-5.1); Sodium 138 mmol/L (137-145)
[2019-09-11] MEDS ORDERED: PANTOPRAZOLE 40 MG TABLET PO SCH (09:00)
[2019-09-11] MEDS: NICOTINE 21MG/24HR PATCH TRANSDERM SCH (09:06)
[2019-09-11] MEDS: CYANOCOBALAMIN 1,000 MCG/ML 1 ML VIAL IM SCH (09:07)
[2019-09-11] MEDS: PYRIDOXINE 50 MG TAB PO SCH (09:07)
[2019-09-11 09:16] LABS: Basophils % (A) 0 %; Eosinophils # (A) 0.1 k/uL (0-0.7); Eosinophils % (A) 7 %; HCT 30.2 % (39.0-53.0); HGB 9.7 gm/dL (13.0-17.5); Hypochromasia Slight; Lymphocytes # (A) 0.4 k/uL (1.0-4.8); Lymphocytes % (A) 23 %; MCH 28.2 pg (25.0-35.0); MCHC 32.1 g/dL (31.0-37.0); MCV 87.8 fL (80.0-100.0); Mean Platelet Volume 9.9; Monocytes # (A) 0.1 k/uL (0-1.0); Monocytes % (A) 7 %; Neutrophils # (A) 1.1 k/uL (1.3-7.7); Neutrophils % (A) 59 %; Platelet Count 173 k/uL (150-450); Poikilocytosis Slight; RBC 3.44 m/uL (4.30-5.90); RDW 15.4 % (11.5-15.5); WBC 1.9 k/uL (3.8-10.6)
[2019-09-11 10:54] VITALS: BP 125/86; PULSE 88; TEMP 98.5
--- NOTE | 2019-09-11 12:30 | P.PN ---
Subjective Progress Note Date: 09/11/19 CHIEF COMPLAINT: Acute cholecystitis HISTORY OF PRESENT ILLNESS: The patient is a 29-year-old male transitioning to female who is postop day 2 status post cholecystectomy, 09/09/19. She/he is tolerating diet. Patient was kept for antibiotic management and expresses desire to go home. ROS: No reports of nausea and vomiting. No fevers or chills. No new chest pain. PHYSICAL EXAM: VITAL SIGNS: Reviewed CONSTITUTIONAL: Well developed and in no acute distress. EYES: Conjuctivae without sclera icterus. Extraocular movements grossly intact. HEAD, EARS, NOSE, THROAT: Moist buccal mucosa. Head is atraumatic, normocephalic. Hears conversational speech. No nasal drainage. NECK: Supple. No thyroidomegaly. RESPIRATORY: Non-labored respirations and equal bilateral excursions. CARDIOVASCULAR: Palpable 2+ radial pulses. ABDOMEN: Incisions clean dry and intact. Soft. No peritonitis. MUSCULOSKELETAL: No gross deformity of the lower extremities noted. No clubbing. No cyanosis. SKIN: Good skin turgor. Well perfused. NEUROLOGIC: Cranial nerves II through XII grossly intact. No focal or lateralizing signs. PSYCH: Appropriate affect. Alert and oriented to person, place and time. CLINICAL LABS: White blood cell count low 2.0 to 1.9 today. Hgb 10.1 down to 9.7. ASSESSMENT: 1. Acute cholecystitis 2. Leukopenia PLAN: 1. I reviewed continue hospitalization secondary to complicated antibiotic management 2. Diet as tolerated Objective - Vital Signs Vital signs: Vital Signs Temp 98.5 F 09/11/19 07:00 Pulse 88 09/11/19 07:00 Resp 16 09/11/19 07:00 BP 125/86 09/11/19 07:00 Pulse Ox 95 09/11/19 07:00 Intake & Output 09/10/19 09/11/19 09/11/19 18:59 06:59 18:59 Intake Total 1100 Balance 1100 Intake: Oral 1100 Other: Voiding Method Toilet # Voids 1 3 - Labs CBC & Chem 7: 09/11/19 07:33 09/11/19 07:33 Labs: Abnormal Lab Results - Last 24 Hours (Table) 09/11/19 09/11/19 Range/Units 07:33 07:33 WBC 1.9 L (3.8-10.6) k/uL RBC 3.44 L (4.30-5.90) m/uL Hgb 9.7 L (13.0-17.5) gm/dL Hct 30.2 L (39.0-53.0) % Neutrophils # 1.1 L (1.3-7.7) k/uL Lymphocytes # 0.4 L (1.0-4.8) k/uL BUN 6 L (9-20) mg/dL Creatinine 0.51 L (0.66-1.25) mg/dL Glucose 317 H (74-99) mg/dL Calcium 8.2 L (8.4-10.2) mg/dL Microbiology - Last 24 Hours (Table) 09/08/19 08:25 Blood Culture - Preliminary Blood No Growth after 72 hours 09/09/19 08:27 Blood Culture - Preliminary Blood No Growth after 48 hours Assessment and Plan (1) Cholecystitis Current Visit: Yes Status: Acute Code(s): K81.9 - CHOLECYSTITIS, UNSPECIFIED SNOMED Code(s): 19951805 (2) HIV (human immunodeficiency virus infection) Current Visit: Yes Status: Acute Code(s): B20 - HUMAN IMMUNODEFICIENCY VIRUS [HIV] DISEASE SNOMED Code(s): 27310615 (3) Leukopenia Current Visit: Yes Status: Acute Code(s): D72.819 - DECREASED WHITE BLOOD CELL COUNT, UNSPECIFIED SNOMED Code(s): 56351971 (4) Salmonella bacteremia Current Visit: Yes Status: Acute Code(s): R78.81 - BACTEREMIA SNOMED Code(s): 343300551
[2019-09-11] MEDS: ALPRAZolam 0.5 MG TAB PO PRN (14:15)
--- NOTE | 2019-09-11 15:20 | P.DS ---
Providers Date of admission: 09/06/19 14:19 Expected date of discharge: 09/11/19 Attending physician: Best Martínez Consults: 09/06/19 13:22 Consult Physician Stat Consulting Provider: Rafael Arriaga Consult Reason/Comments: Postive blood culture, transient leg weakness Do you want consulting provider notified?: Yes 09/06/19 13:23 Consult Physician Stat Consulting Provider: Robina Little Consult Reason/Comments: Transient leg weakness, sepsis, positive blood culture Do you want consulting provider notified?: Yes 09/08/19 13:01 Consult Physician Urgent Consulting Provider: Yonatan Garcia Consult Reason/Comments: cholecystitis Do you want consulting provider notified?: Yes Primary care physician: [facility] Course: 29-year-old male who prefers to be referenced to his female, history of migraine headaches, ongoing nicotine addiction and recent history of salmonella enteritis bacteremia initially in the blood cultures on 08/13/2019. Patient took antib iotics in the form of Levaquin for 2 weeks which was completed about a week ago. Patient was seen in the ER yesterday and blood culture was sent. Patient's blood cultures came back positive for gram-negative bacilli. Patient came back to the hospital today due to complaints of bilateral lower extremity weakness and had a syncopal episode and passed out in the bathroom floor. Patient states that her sister woke her up when she was knocking on the door. Patient states that she passed out for about 2 hours. Denied any complaints of chest pain or shortness of breath. Patient states that she is feeling very tired. She has been using walker and his right leg has been giving out. Patient was seen in the ER yesterday due to syncopal episode and generalized weakness. CT head showed no acute process. Chest x-ray was negative and patient was febrile. Blood culture was sent at that time. EKG showed sinus tachycardia. Laboratory data showed WBC 2.9, hemoglobin 11.0, platelets 105. Sodium 133, potassium 3.6, lactic acid 1.2, bilirubin total 0.9, AST 91, ALT 53, troponin x1-, CRP 163.7 and albumin 3.3 HIV 1 reactive, HIV P 24 antibody reactive. UA negative for infection. 09/07/2019 Patient is currently sitting on the bed comfortably. Currently being continued on antibiotics in thes the form of levofloxacin.changed to ceftriaxone as per ID recommendations. Repeat blood cultures negative growth so far. Initial cultures on 09/05/2019 showed Salmonella. Continue with the repeat blood cultures daily until negative. Patient had MRI of the brain and 2-D echocardiogram as well as EEG was done. Neurology is on board. He reports reviewed. Patient is also tested positive for new onset HIV antibody antigen. CD4 count, viral genotype and titers will be ordered.ID is on board. Patient has been afebrile. Bilateral lower extremity weakness is better. Tolerating oral diet slowly. Does have nausea. No sinus or vomiting. No abdominal pain or diarrhea. No commerce of chest pain or shortness of breath. 09/08/2019 Patient is currently lying in the bed comfortably. Due to recurrent Salmonella bacteremia possible cholecystitis is being considered. CT of the abdomen and pelvis showed gallbladder distention with margins suspected abdominal gallbladder wall thickening. Acute cholecystitis needs to be considered. Small amount of free fluid in the pelvis of uncertain etiology Persistent hepatosplenomegaly and fatty infiltration of liver. Ultrasound of the abdomen was done showed correlate for cholecystitis and for hepatic steatosis, hepatocellular disease. General surgery was consulted and planning for cholecystectomy. Patient has been afebrile. Repeat cultures showing gram-negative bacilli. Currently on antibiotics in the form of ceftriaxone. Neurology and ID is on board. 09/09/19 Patient offers no new complaints. Denies headache. Patient states leg weakness has improved. Patient denies any back pain. Walking fairly stable. Undergoing cholecystectomy soon. Patient's spasticity is possibly due to B12 deficiency, on B12 replacement. Also has B6 deficiency. Neurology is recommending to check RPR, MRI of the lumbosacral spine. Patient to undergo cholecystectomy soon for possible source of Salmonella bacteremia. MRI of the brain with and without contrast revealed correlation for demyelination. Neurology is recommending lumbar puncture, he wants to hold off on it. States he is gradually getting better. 2-D echo showed EF 55-60%. Normal left atrial size. Borderline LVH. No evidence of vegetations on the 2-D echo. EEG was borderline abnormal due to minimal background slowing. Probably due to mild encephalopathy. No epileptiform activity seen. Patient will start B12 and B6 replacement. Patient underwent cholecystectomy; ID was consulted for final recommendations on antibiotic therapy and was recommended to be discharged on Ceftin 500 mg every 12 hours for 10 days Patient Condition at Discharge: Stable Plan - Discharge Summary Discharge Rx Participant: No New Discharge Prescriptions: New Docusate [Colace] 100 mg PO BID #20 capsule HYDROcodone/APAP 5-325MG [[place] 5-325] 1 tab PO Q6HR PRN #10 tab PRN Reason: Pain Cefuroxime Axetil [Ceftin] 500 mg PO BID #20 tab Pyridoxine [Vitamin B-6] 50 mg PO DAILY tab Continue Dextroamphetamine/Amphetamine [Adderall Xr] 15 mg PO BID glyBURIDE [Diabeta] 10 mg PO BID Ibuprofen [Motrin] 600 mg PO Q6HR PRN #120 tab PRN Reason: Pain Ondansetron Odt [Zofran ODT] 8 mg PO DAILY PRN PRN Reason: Nausea Discharge Medication List Dextroamphetamine/Amphetamine [Adderall Xr] 15 mg PO BID 08/13/19 [History] Ibuprofen [Motrin] 600 mg PO Q6HR PRN #120 tab 08/13/19 [Rx] glyBURIDE [Diabeta] 10 mg PO BID 08/13/19 [History] Ondansetron Odt [Zofran ODT] 8 mg PO DAILY PRN 09/05/19 [History] Docusate [Colace] 100 mg PO BID #20 capsule 09/09/19 [Rx] HYDROcodone/APAP 5-325MG [[place] 5-325] 1 tab PO Q6HR PRN #10 tab 09/09/19 [Rx] Cefuroxime Axetil [Ceftin] 500 mg PO BID #20 tab 09/11/19 [Rx] Pyridoxine [Vitamin B-6] 50 mg PO DAILY tab 09/11/19 [Rx] Follow up Appointment(s)/Referral(s): Talisha Booth MD [Primary Care Provider] - 1-2 days Rafael Arriaga MD [STAFF PHYSICIAN] - 1 Week Yonatan Garcia MD [STAFF PHYSICIAN] - 1 Week Patient Instructions/Handouts: Cellulitis (DC), Abscess (GEN) Activity/Diet/Wound Care/Special Instructions: No driving while taking [place] No lifting over 10 pounds You may shower. No soaking or tub baths Very light activity until you are reevaluated at your follow up appointment with your surgeon Discharge Disposition: HOME SELF-CARE
--- NOTE | 2019-09-11 23:06 | PN ---
PROGRESS NOTE DATE OF SERVICE: 09/11/2019 REASON FOR FOLLOWUP: 1. Salmonella bacteremia secondary to cholecystitis. 2. HIV. INTERVAL HISTORY: The patient is currently afebrile. The patient is breathing comfortably. Denies having any chest pain or shortness of breath or cough. Abdominal pain . No nausea, vomiting or diarrhea. PHYSICAL EXAMINATION: Blood pressure 125/86 with pulse of 88, temperature 98.5. He is 95% on room air. General description is a middle-aged male up in the bed in no distress. RESPIRATORY SYSTEM: Unlabored breathing. Clear to auscultation anteriorly. HEART: S1, S2. Regular rate and rhythm. ABDOMEN: Soft, . LABS: Hemoglobin is 9.7, white count 1.9, BUN of 6, creatinine 0.51. DIAGNOSTIC IMPRESSION AND PLAN: 1. Patient with Salmonella bacteremia source cholecystitis, status post cholecystectomy. Blood culture repeat has been negative so far. He will finish therapy with oral Ceftin and close outpatient followup. 2. The patient with HIV new diagnosis genotype, CD4 count still pending, will be started on the anti-retroviral once acute infection is over. Followup in the office in one to two weeks. Continue with supportive care. MMODL / IJN: [id number] /
[2019-09-12 11:57] LABS: HIV1D REACTIVE; HIV2D NONREAC
--- NOTE | 2019-09-13 09:07 | CDI ---
Documentation Clarification Form Date: 09/13/2019 08:48:48 AM From: Ann Marie Ny Phone: If you have a question about this query, please contact Racquel Anaya Relief Operator at [phone] between 8am and 5pm. Admit Date: 09/06/2019 02:19:00 PM Patient Name: Alistair Alejo Visit Number: [id number] Discharge Date: 09/11/2019 04:11:00 PM ATTENTION: The Clinical Documentation Specialists (CDI) and [facility] Coding Staff appreciate your assistance in clarifying documentation. Please respond to the clarification below the line at the bottom and electronically sign. The CDI & [facility] Coding staff will review the response and follow-up if needed. Please note: Queries are made part of the Legal Health Record. If you have any questions, please contact the author of this message via ITS. Dr. Lili Zuñiga Conflicting documentation has been found in the medical record: Salmonella septicemia is documented in PN 09/06 and 09/07. 09/05 Neuro consult also documents current salmonella septicemia. ID and DCS document salmonella bacteremia due to acute cholecystitis. Please clarify if patient had salmonella septicemia or salmonella bacteremia. History/Risk Factors: Patient with salmonella sepsis on 08/05 treated with Cipro, Patient HIV positive, acute cholecystitis, thrombocytopenia, neutropenia, lypmphopenia, B6 deficiency Clinical Indicators: Temp 102.7 HR 117 Treatment: cholecystectomy In your opinion, what is the most clinically appropriate diagnosis for this patient? Salmonella septicemia due to acute cholecystitis Salmonella baceremia due to acute cholecystitis Other explanation of clinical findings Unable to determine (no explanation for clinical findings) Salmonella septicemia due to acute cholecystitis MTDD
== END 2019-09-11 16:11 | disposition home or self-care (01) | DRG 975 ==
LOC: EC 11:06 → 4SSUR 14:19
PROVIDERS: ADMIT Hospitalist; ATTEND Hospitalist
PROC: 0FT44ZZ Resection of Gallbladder, Percutaneous Endoscopic Approach (ICD-10-PCS; principal; 2019-09-09 07:30)
DX: A02.1 Salmonella sepsis (principal); K81.0 Acute cholecystitis; B20 Human immunodeficiency virus [HIV] disease; G93.40 Encephalopathy, unspecified; A02.8 Other specified salmonella infections; B37.0 Candidal stomatitis; B96.5 Pseudomonas (aeruginosa) (mallei) (pseudomallei) as the cause of diseases classified elsewhere; D69.6 Thrombocytopenia, unspecified; D70.9 Neutropenia, unspecified; E11.65 Type 2 diabetes mellitus with hyperglycemia; E53.1 Pyridoxine deficiency; F17.210 Nicotine dependence, cigarettes, uncomplicated; F64.9 Gender identity disorder, unspecified; G43.909 Migraine, unspecified, not intractable, without status migrainosus; Z20.828 Contact with and (suspected) exposure to other viral communicable diseases; K59.00 Constipation, unspecified; K76.0 Fatty (change of) liver, not elsewhere classified; Z79.84 Long term (current) use of oral hypoglycemic drugs; Z82.49 Family history of ischemic heart disease and other diseases of the circulatory system; Z86.14 Personal history of Methicillin resistant Staphylococcus aureus infection; Z86.19 Personal history of other infectious and parasitic diseases; Z88.0 Allergy status to penicillin
CPT/HCPCS: 36415; 70553; 71046; 74177; 76705; 80048; 80053; 80061; 80074; 81001; 82607; 82746; 83036; 83605; 84207; 84425; 84484; 85025; 85610; 85652; 85730; 86038; 86140; 86780; 87040; 87077; 87186; 87389; 87390; 87535; 87536; 87635; 87901; 88304; 93005; 93306; 95816; 96365; 99285

== ENCOUNTER → 2020-03-21 | Outpatient (CLI) | payer OTHER ==
--- NOTE | 2020-03-22 11:31 | MR ---
EXAMINATION TYPE: MR brain wo/w con DATE OF EXAM: 03/21/2020 COMPARISON: Prior MRI brain September 07, 2019. HISTORY: Toxo IGM with leukocytopenia CD4 176, R/O lesion, HIV, Toxoplasmosis. TECHNIQUE: Multiplanar, multisequence images of the brain and brainstem is performed without and with IV contras t, utilizing 10 mL intravenous Gadavist . FINDINGS: Diffusion weighted images demonstrate no evidence of a recent infarct or other diffusion ab normality. There is no worrisome new extra-axial fluid collection. The ventricular system and ciste rnal spaces remain normal in size and appearance. The brain volume is age appropriate. There is wors ening confluent areas of T2 hyperintensity in the deep and periventricular white matter bilaterally. Possible pontine involvement on prior study is less well seen on current study suggesting improvement . Midline structures redemonstrate normal morphology. The craniocervical junction remains within rafat l limits. Post contrast images demonstrate no abnormal enhancement. The dural venous sinuses appear patent. The visualized sinuses are clear and the globes are intact. IMPRESSION: Severe worsening nonspecific cerebral white matter changes bilaterally. No abnormal enhan cement or enhancing lesions noted.
== END | disposition home or self-care (01) ==
LOC: RADMRIMAIN 18:19
PROVIDERS: ATTEND Family Medicine
DX: R90.89 Other abnormal findings on diagnostic imaging of central nervous system (principal); B20 Human immunodeficiency virus [HIV] disease; B58.9 Toxoplasmosis, unspecified
CPT/HCPCS: 70553; A9585

== ENCOUNTER → 2020-05-16 | Outpatient (CLI) | payer OTHER ==
[2020-05-17 00:36] LABS: Total Protein,CSF 65 mg/dL (12-60)
[2020-05-17 01:19] LABS: CSF Tube Number 4
[2020-05-17 01:20] LABS: Appearance,CSF Clear; CSF Tube Volume 3.5; Nucleated Cells, CSF 4 u/L (0-5); Red Blood Cell,CSF 0 u/L (0-10)
== END | disposition home or self-care (01) ==
LOC: LABWHC1 07:48
PROVIDERS: ATTEND Nurse Practitioner Acute Care
DX: R90.82 White matter disease, unspecified (principal)
CPT/HCPCS: 36415; 82040; 82042; 82784; 83873; 83916; 84157; 87801; 89050

== ENCOUNTER 2020-12-01 13:25 | Emergency (ER) | payer OTHER ==
[2020-12-01 13:37] VITALS: RESP 18; TEMP 98.5
--- NOTE | 2020-12-01 13:53 | ED ---
General Adult HPI - General Chief complaint: Extremity Injury, Upper Stated complaint: fall, L arm pain Time Seen by Provider: 12/01/20 13:33 Source: patient, RN notes reviewed, old records reviewed Mode of arrival: ambulatory Limitations: no limitations - History of Present Illness Initial comments: 30-year-old presenting for evaluation of left arm pain. Patient had been walking upstairs on which is 3 days prior fell injuring the left forearm and elbow. The pain persists after the past 3 days. No head or neck trauma. No anticoagulation. Patient did also complain of some minor right knee pain. - Related Data Home Medications Medication Instructions Recorded Confirmed Dextroamphetamine/Amphetamine 15 mg PO BID 08/13/19 09/06/19 [Adderall Xr] glyBURIDE [Diabeta] 10 mg PO BID 08/13/19 09/06/19 Ondansetron Odt [Zofran ODT] 8 mg PO DAILY PRN 09/05/19 09/06/19 Previous Rx's Medication Instructions Recorded Ibuprofen [Motrin] 600 mg PO Q6HR PRN #120 tab 08/13/19 Docusate [Colace] 100 mg PO BID #20 capsule 09/09/19 HYDROcodone/APAP 5-325MG [[place] 1 tab PO Q6HR PRN #10 tab 09/09/19 5-325] Cefuroxime Axetil [Ceftin] 500 mg PO BID #20 tab 09/11/19 Cyanocobalamin [Vitamin B-12] 1,000 mcg PO DAILY #30 tablet 09/11/19 Pyridoxine [Vitamin B-6] 50 mg PO DAILY tab 09/11/19 Allergies Allergy/AdvReac Type Severity Reaction Status Date / Time Penicillins Allergy Unknown Verified 09/06/19 14:20 Childhood Review of Systems ROS Statement: Those systems with pertinent positive or pertinent negative responses have been documented in the HPI. ROS Other: All systems not noted in ROS Statement are negative. Past Medical History Additional Past Medical History / Comment(s): migraines, stroke in 2019 History of Any Multi-Drug Resistant Organisms: MRSA Date of last positivie culture/infection: 07/27/18 MDRO Source:: AXILLA Past Surgical History: No Surgical Hx Reported, Cholecystectomy Past Psychological History: No Psychological Hx Reported Smoking Status: Current every day smoker Past Alcohol Use History: Rare Past Drug Use History: Marijuana - Past Family History Mother Family Medical History: CVA/TIA, Liver Disease Father Family Medical History: Myocardial Infarction ([place]) General Exam Limitations: no limitations General appearance: alert, in no apparent distress Head exam: Present: atraumatic, normocephalic Eye exam: Present: normal appearance, PERRL ENT exam: Present: normal exam Neck exam: Present: normal inspection. Absent: tenderness, meningismus Respiratory exam: Present: normal lung sounds bilaterally. Absent: respiratory distress, wheezes, rales Cardiovascular Exam: Present: regular rate, normal rhythm GI/Abdominal exam: Present: soft. Absent: distended, tenderness, guarding Extremities exam: Present: full ROM, tenderness (Minimal tenderness in the proximal forearm, good range of motion at the elbow, distal pulses are intact, normal stenciling machine tender strength. No external signs of trauma.) Neurological exam: Present: alert, oriented X3, CN II-XII intact. Absent: motor sensory deficit Psychiatric exam: Present: normal affect, normal mood Skin exam: Present: warm, dry, intact. Absent: cyanosis, diaphoretic Course Vital Signs 12/01/20 13:29 Temperature 98.5 F Pulse Rate 98 Respiratory 18 Rate Blood Pressure 143/108 O2 Sat by Pulse 97 Oximetry Medical Decision Making - Medical Decision Making X-rays performed of the right knee, left elbow, left forearm. No acute fracture/ dislocation. Patient will follow with primary care physician. Disposition Clinical Impression: Sprain of elbow, left Disposition: HOME SELF-CARE Condition: Good Instructions (If sedation given, give patient instructions): Elbow Sprain (ED) Is patient prescribed a controlled substance at d/c from ED?: No Referrals: Giorgio Flores DO [Primary Care Provider] - 1-2 days Time of Disposition: 14:23
--- NOTE | 2020-12-01 14:45 | XR ---
EXAMINATION TYPE: XR elbow complete LT DATE OF EXAM: 12/01/2020 COMPARISON: NONE HISTORY: Pain TECHNIQUE: 3 views FINDINGS: I see no fracture nor dislocation. Joint spaces are normal. There is no sign of elbow joint effusion. IMPRESSION: Negative left elbow exam.
--- NOTE | 2020-12-01 14:47 | XR ---
EXAMINATION TYPE: XR knee complete RT DATE OF EXAM: 12/01/2020 COMPARISON: 02/03/2015 HISTORY: Pain TECHNIQUE: 3 views FINDINGS: There is minimal spurring of the lateral tibial condyle. I see no fracture nor dislocation. There is no evidence of joint effusion. IMPRESSION: Minimal spurring. No fracture seen. Spring increased compared to old exam. There is clear ing of small joint effusion compared to old exam.
--- NOTE | 2020-12-01 14:48 | XR ---
EXAMINATION TYPE: XR forearm LT DATE OF EXAM: 12/01/2020 COMPARISON: NONE HISTORY: Pain. TECHNIQUE: 2 views FINDINGS: Radius and ulna appear intact. I see no fracture nor dislocation. Elbow joint and wrist apollo nt appear intact. IMPRESSION: Negative left forearm exam.
[2020-12-01 15:13] VITALS: BP 132/98; PULSE 92
== END 2020-12-01 15:13 | disposition home or self-care (01) ==
LOC: EC 13:25
DX: S53.402A Unspecified sprain of left elbow, initial encounter (principal); F17.200 Nicotine dependence, unspecified, uncomplicated; Z86.73 Personal history of transient ischemic attack (TIA), and cerebral infarction without residual deficits; Z88.0 Allergy status to penicillin; W10.9XXA Fall (on) (from) unspecified stairs and steps, initial encounter
CPT/HCPCS: 99283

== ENCOUNTER → 2021-01-04 | Outpatient (CLI) | payer OTHER ==
[2021-01-04 18:54] LABS: Basophils # (A) 0.02 X 10*3/uL (0.00-0.10); Basophils % (A) 0.2 %; Eosinophils # (A) 0.08 X 10*3/uL (0.04-0.35); Eosinophils % (A) 0.8 %; HCT 46.3 % (39.6-50.0); HGB 15.8 g/dL (13.0-17.0); Lymphocytes # (A) 1.48 X 10*3/uL (0.90-5.00); Lymphocytes % (A) 15.5 %; MCH 30.2 pg (27.0-32.0); MCHC 34.1 g/dL (32.0-37.0); MCV 88.4 fL (80.0-97.0); Mean Platelet Volume 11.4 fL (9.5-12.2); Monocytes % (A) 6.3 %; Neutrophils # (A) 7.33 X 10*3/uL (1.80-7.70); Neutrophils % (A) 76.9 %; Platelet Count 284 X 10*3/uL (140-440); RBC 5.24 X 10*6/uL (4.40-5.60); RDW 13.3 % (11.5-14.5); WBC 9.54 X 10*3/uL (4.50-10.00)
[2021-01-04 21:53] LABS: Hemoglobin A1C 5.6 % (4.0-6.0)
[2021-01-05 00:04] LABS: Estradiol 117.6 pg/mL
[2021-01-05 00:43] LABS: African American GFR (CKD) 102.4 (60.0-200.0); Albumin 4.9 g/dL (3.80-4.90); Albumin/Globulin Ratio 1.88 (1.60-3.17); Anion Gap 10.7 mmol/L (4.00-12.00); BUN/Creat Ratio 12.73 Ratio (12.00-20.00); Calcium 9.4 mg/dL (8.7-10.3); Carbon Dioxide 20.3 mmol/L (21.6-31.8); Globulin 2.6 g/dL (1.6-3.3); Non-African American GFR(CKD) 88.4 (60.0-200.0); Potassium 4.2 mmol/L (3.5-5.5); Total Bilirubin 0.4 mg/dL (0.3-1.2); Total Protein 7.5 g/dL (6.2-8.2)
[2021-01-05 10:14] LABS: T4/T8 Ratio (CD4:CD8) 0.6 (1.0-3.7)
[2021-01-07 21:14] LABS: HIV-1 RNA DETECTED (Not detected); HIV-1 RNA, Quant <40 Copies/mL (<40)
== END | disposition home or self-care (01) ==
LOC: LABWHC1 12:29
PROVIDERS: ATTEND Nurse Practitioner Family
DX: F64.0 Transsexualism (principal); F64.9 Gender identity disorder, unspecified; B20 Human immunodeficiency virus [HIV] disease; E11.9 Type 2 diabetes mellitus without complications
CPT/HCPCS: 36415; 80053; 82670; 82672; 83036; 84403; 85025; 86360; 87536

== ENCOUNTER 2021-01-16 18:20 | Emergency (ER) | payer OTHER ==
[2021-01-16 18:33] VITALS: TEMP 98.4
[2021-01-16] MEDS ORDERED: SODIUM CHLORIDE 0.9% 1,000 ML IV STA (18:56)
[2021-01-16] MEDS ORDERED: PANTOPRAZOLE 40 MG/10 ML VIAL IVP STA (18:56)
[2021-01-16] MEDS ORDERED: KETOROLAC 15 MG/ML 1 ML VIAL IVP STA (18:56)
[2021-01-16 19:09] LABS: Basophils % (A) 1 %; Eosinophils # (A) 0.3 k/uL (0-0.7); Eosinophils % (A) 4 %; HCT 45.3 % (39.0-53.0); HGB 15.1 gm/dL (13.0-17.5); Lymphocytes % (A) 24 %; MCH 30.1 pg (25.0-35.0); MCHC 33.4 g/dL (31.0-37.0); MCV 90.2 fL (80.0-100.0); Mean Platelet Volume 8.2; Monocytes # (A) 0.4 k/uL (0-1.0); Monocytes % (A) 5 %; Neutrophils # (A) 5.3 k/uL (1.3-7.7); Neutrophils % (A) 64 %; Platelet Count 264 k/uL (150-450); RBC 5.02 m/uL (4.30-5.90); RDW 13.1 % (11.5-15.5); WBC 8.3 k/uL (3.8-10.6)
[2021-01-16 19:11] LABS: Appearance,Urine Clear (Clear); Bilirubin,Urine Negative (Negative); Blood,Urine Negative (Negative); Color,Urine Yellow; Glucose,Urine (UA) Negative (Negative); Ketones,Urine Trace (Negative); Leukocyte Esterase,Urine Negative (Negative); Nitrite,Urine Negative (Negative); Protein,Urine Trace (Negative); Specific Gravity,Urine 1.035 (1.001-1.035)
[2021-01-16 19:19] LABS: ALT 42 U/L (4-49); AST 28 U/L (17-59); African American GFR (CKD) >90 (>60 ml/min/1.73 sqM); Albumin 4.2 g/dL (3.5-5.0); Alkaline Phosphatase 58 U/L (38-126); Amylase 50 U/L (30-110); Anion Gap 10 mmol/L; Blood Urea Nitrogen 15 mg/dL (9-20); Calcium 9.5 mg/dL (8.4-10.2); Carbon Dioxide 23 mmol/L (22-30); Chloride 106 mmol/L (98-107); Glucose 111 mg/dL (74-99); Lipase 51 U/L (23-300); Non-African American GFR(CKD) >90 (>60 ml/min/1.73 sqM); Potassium 4.2 mmol/L (3.5-5.1); Sodium 139 mmol/L (137-145); Total Bilirubin 0.4 mg/dL (0.2-1.3); Total Protein 7.2 g/dL (6.3-8.2)
--- NOTE | 2021-01-16 19:25 | XR ---
EXAMINATION TYPE: XR KUB DATE OF EXAM: 01/16/2021 7:16 PM CLINICAL HISTORY: Abdominal pain. TECHNIQUE: Single supine KUB image of the abdomen is obtained. COMPARISON: None. FINDINGS: Scattered gas is seen in non-distended small bowel loops. Gas and fecal material is seen in non-distended colon. There is no visceromegaly, pneumoperitoneum appreciated. Calcification over the medial right upper quadrant. The lung bases are clear and the osseous structur es are intact. IMPRESSION: 1. Overall nonobstructive bowel gas pattern. 2. Punctate calcification over the right upper quadrant may represent a tiny gallstone.
--- NOTE | 2021-01-16 20:23 | ED ---
Abdominal Pain HPI - General Chief Complaint: Abdominal Pain Stated Complaint: abd pain Time Seen by Provider: 01/16/21 18:41 Source: patient Mode of arrival: ambulatory Limitations: no limitations - History of Present Illness Initial Comments: Patient is a 30-year-old male, identifies as female, presenting to emergency Department with complaints of epigastric pain that's been happening for the past week. He states he was going come to the ER couple days ago but was busy and then tried to come yesterday but was also busy so finally came in today. He describes it as pressure in his epigastric region, increases when his pants are too tight. He denies any nausea or vomiting, no diarrhea. He denies any fevers or chills, no chest pain or shortness of breath. He admits to history of cholecystectomy, no other abdominal surgeries. There are no further complaints today. Vital signs are stable upon arrival. - Related Data Home Medications Medication Instructions Recorded Confirmed glyBURIDE [Diabeta] 20 mg PO DAILY 08/13/19 01/16/21 Ondansetron Odt [Zofran ODT] 8 mg PO DAILY PRN 09/05/19 01/16/21 Bictegrav/Emtricit/Tenofov Ala 1 tab PO DAILY 01/16/21 01/16/21 [Biktarvy 50-200-25 mg Tablet] Cyclobenzaprine [Flexeril] 10 mg PO BID PRN 01/16/21 01/16/21 Dextroamphetamine/Amphetamine 20 mg PO TID 01/16/21 01/16/21 [Adderall Xr] Estradiol 4 mg PO DAILY 01/16/21 01/16/21 Spironolactone 100 mg PO DAILY 01/16/21 01/16/21 Sulfamethox-Tmp 800-160Mg [Bactrim 1 tab PO DAILY 01/16/21 01/16/21 DS 800-160 mg] Previous Rx's Medication Instructions Recorded Omeprazole [PriLOSEC] 20 mg PO AC-BRKFST #14 cap 01/16/21 Allergies Allergy/AdvReac Type Severity Reaction Status Date / Time Penicillins Allergy Unknown Verified 01/16/21 20:08 Childhood Review of Systems ROS Statement: Those systems with pertinent positive or pertinent negative responses have been documented in the HPI. ROS Other: All systems not noted in ROS Statement are negative. Past Medical History Additional Past Medical History / Comment(s): migraines, stroke in 2019 History of Any Multi-Drug Resistant Organisms: MRSA Date of last positivie culture/infection: 07/27/18 MDRO Source:: AXILLA Past Surgical History: No Surgical Hx Reported, Cholecystectomy Past Psychological History: No Psychological Hx Reported Smoking Status: Current every day smoker Past Alcohol Use History: Rare Past Drug Use History: Marijuana - Past Family History Mother Family Medical History: CVA/TIA, Liver Disease Father Family Medical History: Myocardial Infarction ([place]) General Exam - General Exam Comments Initial Comments: GENERAL: Patient is well-developed and well-nourished. Patient is nontoxic and in no acute distress. HEAD: Atraumatic, normocephalic. EYES: Pupils equal round and reactive to light, extraocular movements intact, sclera anicteric, conjunctiva are normal. Eyelids were unremarkable. ENT: TMs normal, nares patent, oropharynx clear without exudates. Moist mucous membranes. NECK: Normal range of motion, supple without lymphadenopathy or JVD. LUNGS: Unlabored respirations. Breath sounds clear to auscultation bilaterally and equal. No wheezes rales or rhonchi. HEART: Regular rate and rhythm without murmurs, rubs or gallops. ABDOMEN: Soft, nontender, normoactive bowel sounds. No guarding, no rebound. No masses appreciated. : Deferred MUSCULOSKELETAL: Normal extremities with adequate strength and normal range of motion, no pitting or edema. No clubbing or cyanosis. NEUROLOGICAL: Patient is alert and oriented x 3. Symmetrical smile. Normal speech, normal gait. PSYCH: Normal mood, normal affect. SKIN: Warm, Dry, normal turgor, no rashes or lesions noted. Limitations: no limitations Course Vital Signs 01/16/21 01/16/21 18:31 20:31 Temperature 98.4 F Pulse Rate 83 77 Respiratory 16 18 Rate Blood Pressure 133/89 147/98 O2 Sat by Pulse 97 98 Oximetry Medical Decision Making - Medical Decision Making Patient is a 30-year-old male with history of HIV, presenting for epigastric discomfort over the past week. On exam today, he had no abdominal pain. He feels better at rest. His vital signs are stable. He said history of cholecystectomy. Patient's lab work is unremarkable today including normal urine as well. Patient received fluids, Toradol protonic's. He has been resting comfortably. No abdominal pain during ER stay. I discussed with patient this could be either stress related and/or possible small ulcer. I recommended omeprazole over the next couple weeks. He can follow up with his primary care. He is agreeable to splenic care and he is stable for discharge. Return parameters were discussed with him and he verbalized understanding. Case discussed with Dr. Falcon. - Lab Data Result diagrams: 01/16/21 19:00 01/16/21 19:00 Lab Results 01/16/21 01/16/21 01/16/21 Range/Units 19:00 19:00 19:00 WBC 8.3 (3.8-10.6) k/uL RBC 5.02 (4.30-5.90) m/uL Hgb 15.1 (13.0-17.5) gm/dL Hct 45.3 (39.0-53.0) % MCV 90.2 (80.0-100.0) fL MCH 30.1 (25.0-35.0) pg MCHC 33.4 (31.0-37.0) g/dL RDW 13.1 (11.5-15.5) % Plt Count 264 (150-450) k/uL MPV 8.2 Neutrophils % 64 % Lymphocytes % 24 % Monocytes % 5 % Eosinophils % 4 % Basophils % 1 % Neutrophils # 5.3 (1.3-7.7) k/uL Lymphocytes # 2.0 (1.0-4.8) k/uL Monocytes # 0.4 (0-1.0) k/uL Eosinophils # 0.3 (0-0.7) k/uL Basophils # 0.0 (0-0.2) k/uL Sodium 139 (137-145) mmol/L Potassium 4.2 (3.5-5.1) mmol/L Chloride 106 (98-107) mmol/L Carbon Dioxide 23 (22-30) mmol/L Anion Gap 10 mmol/L BUN 15 (9-20) mg/dL Creatinine 0.86 (0.66-1.25) mg/dL Est GFR (CKD-EPI)AfAm >90 (>60 ml/min/1.73 sqM) Est GFR (CKD-EPI)NonAf >90 (>60 ml/min/1.73 sqM) Glucose 111 H (74-99) mg/dL Plasma Lactic Acid [place] (0.7-2.0) mmol/L Calcium 9.5 (8.4-10.2) mg/dL Total Bilirubin 0.4 (0.2-1.3) mg/dL AST 28 (17-59) U/L ALT 42 (4-49) U/L Alkaline Phosphatase 58 (38-126) U/L Total Protein 7.2 (6.3-8.2) g/dL Albumin 4.2 (3.5-5.0) g/dL Amylase 50 (30-110) U/L Lipase 51 (23-300) U/L Urine Color Yellow Urine Appearance Clear (Clear) Urine pH 6.0 (5.0-8.0) Ur Specific [place] 1.035 (1.001-1.035) Urine Protein Trace H (Negative) Urine Glucose (UA) Negative (Negative) Urine Ketones Trace H (Negative) Urine Blood Negative (Negative) Urine Nitrite Negative (Negative) Urine Bilirubin Negative (Negative) Urine Urobilinogen 3.0 (<2.0) mg/dL Ur Leukocyte Esterase Negative (Negative) 01/16/21 Range/Units 19:00 WBC (3.8-10.6) k/uL RBC (4.30-5.90) m/uL Hgb (13.0-17.5) gm/dL Hct (39.0-53.0) % MCV (80.0-100.0) fL MCH (25.0-35.0) pg MCHC (31.0-37.0) g/dL RDW (11.5-15.5) % Plt Count (150-450) k/uL MPV Neutrophils % % Lymphocytes % % Monocytes % % Eosinophils % % Basophils % % Neutrophils # (1.3-7.7) k/uL Lymphocytes # (1.0-4.8) k/uL Monocytes # (0-1.0) k/uL Eosinophils # (0-0.7) k/uL Basophils # (0-0.2) k/uL Sodium (137-145) mmol/L Potassium (3.5-5.1) mmol/L Chloride (98-107) mmol/L Carbon Dioxide (22-30) mmol/L Anion Gap mmol/L BUN (9-20) mg/dL Creatinine (0.66-1.25) mg/dL Est GFR (CKD-EPI)AfAm (>60 ml/min/1.73 sqM) Est GFR (CKD-EPI)NonAf (>60 ml/min/1.73 sqM) Glucose (74-99) mg/dL Plasma Lactic Acid [place] 0.9 (0.7-2.0) mmol/L Calcium (8.4-10.2) mg/dL Total Bilirubin (0.2-1.3) mg/dL AST (17-59) U/L ALT (4-49) U/L Alkaline Phosphatase (38-126) U/L Total Protein (6.3-8.2) g/dL Albumin (3.5-5.0) g/dL Amylase (30-110) U/L Lipase (23-300) U/L Urine Color Urine Appearance (Clear) Urine pH (5.0-8.0) Ur Specific [place] (1.001-1.035) Urine Protein (Negative) Urine Glucose (UA) (Negative) Urine Ketones (Negative) Urine Blood (Negative) Urine Nitrite (Negative) Urine Bilirubin (Negative) Urine Urobilinogen (<2.0) mg/dL Ur Leukocyte Esterase (Negative) Disposition Clinical Impression: Epigastric abdominal pain Disposition: HOME SELF-CARE Condition: Stable Instructions (If sedation given, give patient instructions): Abdominal Pain (ED) Additional Instructions: Please return to the Emergency Department if symptoms worsen or any other concerns. Trial of omeprazole. Follow-up with your family doctor. Prescriptions: Omeprazole [PriLOSEC] 20 mg PO AC-BRKFST #14 cap Is patient prescribed a controlled substance at d/c from ED?: No Referrals: Giorgio Flores DO [Primary Care Provider] - 1-2 days Time of Disposition: 20:23
[2021-01-16 20:32] VITALS: BP 147/98; PULSE 77; RESP 18
== END 2021-01-16 20:40 | disposition home or self-care (01) ==
LOC: EC 18:20
DX: R10.13 Epigastric pain (principal); F17.200 Nicotine dependence, unspecified, uncomplicated; Z21 Asymptomatic human immunodeficiency virus [HIV] infection status; Z86.73 Personal history of transient ischemic attack (TIA), and cerebral infarction without residual deficits; Z88.0 Allergy status to penicillin; Z90.49 Acquired absence of other specified parts of digestive tract
CPT/HCPCS: 36415; 80053; 82150; 83605; 83690; 85025; 81003; 74018; 99284; 96374; 96375; 96361; J1885; C9113

== ENCOUNTER 2021-06-18 17:45 | Observation (INO) | payer OTHER ==
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
[2021-06-18 19:28] LABS: Basophils # (A) 0.1 k/uL (0-0.2); Basophils % (A) 1 %; Eosinophils # (A) 0.2 k/uL (0-0.7); Eosinophils % (A) 2 %; HCT 48.2 % (39.0-53.0); HGB 16.4 gm/dL (13.0-17.5); Lymphocytes % (A) 16 %; MCH 31.1 pg (25.0-35.0); MCV 91.5 fL (80.0-100.0); Mean Platelet Volume 8.5; Monocytes # (A) 0.7 k/uL (0-1.0); Monocytes % (A) 5 %; Neutrophils # (A) 9.7 k/uL (1.3-7.7); Neutrophils % (A) 76 %; Platelet Count 242 k/uL (150-450); RBC 5.26 m/uL (4.30-5.90); RDW 12.8 % (11.5-15.5); WBC 12.8 k/uL (3.8-10.6)
[2021-06-18 19:37] LABS: INR 0.9 (<1.2); Partial Thromboplastin Time 24.3 sec (22.0-30.0); Prothrombin Time 10.4 sec (9.0-12.0)
[2021-06-18] MEDS ORDERED: NALOXONE 0.4 MG/ML 1 ML VIAL IV PRN (19:44)
[2021-06-18] MEDS ORDERED: ACETAMINOPHEN TAB 325 MG TAB PO PRN (19:44)
[2021-06-18] MEDS ORDERED: MORPHINE SULFATE 4 MG/ML SYRINGE IV PRN (19:44)
[2021-06-18] MEDS ORDERED: SODIUM CHLORIDE 0.9% 1,000 ML IV SCH (19:45)
[2021-06-18 19:48] LABS: ALT 30 U/L (4-49); AST 40 U/L (17-59); African American GFR (CKD) >90 (>60 ml/min/1.73 sqM); Albumin 4.5 g/dL (3.5-5.0); Alcohol <10 mg/dL; Alkaline Phosphatase 37 U/L (38-126); Anion Gap 11 mmol/L; Blood Urea Nitrogen 17 mg/dL (9-20); Calcium 9.6 mg/dL (8.4-10.2); Carbon Dioxide 17 mmol/L (22-30); Chloride 108 mmol/L (98-107); Glucose 216 mg/dL (74-99); Non-African American GFR(CKD) 89 (>60 ml/min/1.73 sqM); Sodium 136 mmol/L (137-145); Total Bilirubin 0.8 mg/dL (0.2-1.3); Total Protein 7.9 g/dL (6.3-8.2)
[2021-06-18 20:29] LABS: Potassium 5.1 mmol/L (3.5-5.1)
[2021-06-19 03:48] VITALS: BP 150/67; PULSE 74; RESP 16; TEMP 97.6
[2021-06-19] MEDS ORDERED: CYCLOBENZAPRINE 10 MG TAB PO PRN (08:08)
[2021-06-19] MEDS ORDERED: FAMOTIDINE 20 MG/2 ML VIAL IV SCH (09:00)
[2021-06-19] MEDS ORDERED: GLYBURIDE 5 MG PO SCH (09:00)
[2021-06-19] MEDS ORDERED: SPIRONOLACTONE 25 MG TAB PO SCH (09:00)
[2021-06-19 10:05] LABS: Urine Alcohol Negative (Negative); Urine Barbiturate Negative (Negative); Urine Cocaine Negative (Negative); Urine Methadone Negative (Negative); Urine Opiates Positive (Negative); Urine Phencyclidine Negative (Negative)
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
== END 2021-06-19 10:02 | disposition left against medical advice (07) ==
LOC: EC 17:45 → 3SCARD 19:44 → INTOOBSV 19:44 → 3SCARD 20:35 → UNDODISIN 06-19 10:02
PROVIDERS: ADMIT Hospitalist; ATTEND Hospitalist
DX: S06.360A Traumatic hemorrhage of cerebrum, unspecified, without loss of consciousness, initial encounter (principal); Z21 Asymptomatic human immunodeficiency virus [HIV] infection status; Y04.0XXA Assault by unarmed brawl or fight, initial encounter; E11.9 Type 2 diabetes mellitus without complications; F17.210 Nicotine dependence, cigarettes, uncomplicated; Z53.29 Procedure and treatment not carried out because of patient's decision for other reasons; G43.909 Migraine, unspecified, not intractable, without status migrainosus; Z79.84 Long term (current) use of oral hypoglycemic drugs; Z88.0 Allergy status to penicillin; Z79.890 Hormone replacement therapy; Z86.73 Personal history of transient ischemic attack (TIA), and cerebral infarction without residual deficits; Z86.14 Personal history of Methicillin resistant Staphylococcus aureus infection; Z82.3 Family history of stroke; Z82.49 Family history of ischemic heart disease and other diseases of the circulatory system
CPT/HCPCS: 99291; 96374; 36415; 80053; 85025; 85610; 85730; 80306; 72125; 70450; G0378 ×2; G0480; J2270; 80320; 96361; 99285

== ENCOUNTER 2021-06-20 20:52 | Observation (INO) | payer OTHER ==
--- NOTE | 2021-06-20 22:03 | ED ---
Recheck HPI - General Chief Complaint: Headache Stated Complaint: Headache Time Seen by Provider: 06/20/21 21:35 Source: patient, RN notes reviewed, old records reviewed Mode of arrival: wheelchair Limitations: no limitations - History of Present Illness Initial Comments: This is a 30-year-old patient presents today for evaluation of headache recurrent evaluation for headache. Patient was recently admitted for headache with him possible pontine hemorrhage scheduled for MRI and neurology evaluation but left AMA prior to the above. Patient states headache is persistent here in the emergency department today. Denying trauma denying any injury, no neurological complaints. Able ambulate and do daily activities without difficulty. No fevers. MD Complaint: medication refill request -: days(s) Returns Today for: persistent/worsening pain related to initial visit Symptoms Since Prior Visit: worsening pain Context: planned re-check (Patient signed out AMA presenting for reevaluation regarding headache) Associated Symptoms: none Treatments Prior to Arrival: Given Pain Meds on - Related Data Home Medications Medication Instructions Recorded Confirmed glyBURIDE [Diabeta] 20 mg PO DAILY 08/13/19 06/20/21 Ondansetron Odt [Zofran ODT] 8 mg PO DAILY PRN 09/05/19 06/20/21 Bictegrav/Emtricit/Tenofov Ala 1 tab PO DAILY 01/16/21 06/20/21 [Biktarvy 50-200-25 mg Tablet] Cyclobenzaprine [Flexeril] 10 mg PO BID PRN 01/16/21 06/20/21 Dextroamphetamine/Amphetamine 20 mg PO TID PRN 01/16/21 06/20/21 [Adderall Xr] Estradiol 3 mg PO DAILY 01/16/21 06/20/21 Spironolactone 100 mg PO DAILY 01/16/21 06/20/21 LORazepam [Ativan] 1 mg PO DAILY PRN 06/18/21 06/20/21 Allergies Allergy/AdvReac Type Severity Reaction Status Date / Time Penicillins Allergy Unknown Verified 06/20/21 21:02 Childhood Review of Systems ROS Statement: Those systems with pertinent positive or pertinent negative responses have been documented in the HPI. ROS Other: All systems not noted in ROS Statement are negative. Past Medical History Past Medical History: CVA/TIA Additional Past Medical History / Comment(s): migraines, stroke in 2020 History of Any Multi-Drug Resistant Organisms: MRSA Date of last positivie culture/infection: 07/27/18 MDRO Source:: AXILLA Past Surgical History: Cholecystectomy Past Psychological History: No Psychological Hx Reported Smoking Status: Current every day smoker Past Alcohol Use History: Rare Past Drug Use History: Marijuana - Past Family History Mother Family Medical History: CVA/TIA, Liver Disease Father Family Medical History: Myocardial Infarction ([place]) General Exam Limitations: no limitations General appearance: alert, in no apparent distress Head exam: Present: atraumatic, normocephalic, normal inspection Eye exam: Present: normal appearance, PERRL, EOMI. Absent: scleral icterus, conjunctival injection, periorbital swelling ENT exam: Present: normal exam, mucous membranes moist Neck exam: Present: normal inspection. Absent: tenderness, meningismus, lymphadenopathy Respiratory exam: Present: normal lung sounds bilaterally. Absent: respiratory distress, wheezes, rales, rhonchi, stridor Cardiovascular Exam: Present: regular rate, normal rhythm, normal heart sounds. Absent: systolic murmur, diastolic murmur, rubs, gallop, clicks GI/Abdominal exam: Present: soft, normal bowel sounds. Absent: distended, tenderness, guarding, rebound, rigid Extremities exam: Present: normal inspection, full ROM, normal capillary refill. Absent: tenderness, pedal edema, joint swelling, calf tenderness Back exam: Present: normal inspection Neurological exam: Present: alert, oriented X3, CN II-XII intact Psychiatric exam: Present: normal affect, normal mood Skin exam: Present: warm, dry, intact, normal color. Absent: rash Course Vital Signs 06/20/21 06/20/21 21:02 22:05 Temperature 97.8 F Pulse Rate 87 86 Respiratory 20 16 Rate Blood Pressure 129/93 118/86 O2 Sat by Pulse 98 97 Oximetry - Reevaluation(s) Reevaluation #1: 06/20/21 23:42 Medical records reviewed 06/20/21 23:42 Prior inpatient hospitalization is been resistant reviewed were patient signed an AMA Reevaluation #2: 06/20/21 23:42 Patient states headache is improved now here in the ER Reevaluation #3: 06/20/21 23:43 Patient informed results questions answered agrees to stay for admission currently - Consultations Consultation #1: Spoke with EM who agree for admission Medical Decision Making - Medical Decision Making 30-year-old patient DF for evaluation of headache recheck for pontine hemorrhage. Area of question has gone from 7 mm to 4 mm will admit for neurology consult and MRI - Radiology Data Radiology results: report reviewed (CT brain shows possible 4 mm of hemorrhage), image reviewed Disposition Clinical Impression: Pontine hemorrhage, Headache Disposition: ADMITTED IP TO THIS [facility] Condition: Good Is patient prescribed a controlled substance at d/c from ED?: No Referrals: Goirgio Flores DO [Primary Care Provider] - 1-2 days
--- NOTE | 2021-06-20 22:59 | CT ---
EXAMINATION TYPE: CT brain wo con DATE OF EXAM: 06/20/2021 COMPARISON: 06/18/2021 HISTORY: Headache, return visit CT DLP: 1182.4 mGycm Automated exposure control for dose reduction was used. Images of the brain obtained without contrast. Ventricles have normal size. There is no mass effect or midline shift. There is a 4 mm focus of incre ased attenuation in the central brainstem. This is also present on recent exam and appears slightly s maller. Calvarium is intact. There is no evidence of cerebral edema. IMPRESSION: Focal increased density in the central deloris slightly smaller than recent exam and consistent with foc al hemorrhage.
[2021-06-20] MEDS ORDERED: ONDANSETRON 4 MG/2 ML VIAL IVP PRN (23:30)
[2021-06-20] MEDS ORDERED: NALOXONE 0.4 MG/ML 1 ML VIAL IV PRN (23:30)
[2021-06-20] MEDS: MORPHINE SULFATE 4 MG/ML SYRINGE IV PRN (23:54)
[2021-06-20] MEDS: SODIUM CHLORIDE 0.9% 1,000 ML IV SCH (23:55)
[2021-06-21] MEDS: MORPHINE SULFATE 4 MG/ML SYRINGE IV PRN ×4 (04:36→17:35)
[2021-06-21] MEDS ORDERED: PANTOPRAZOLE 40 MG/10 ML VIAL IV SCH (09:00)
[2021-06-21 09:54] LABS: Basophils % (A) 0 %; Eosinophils # (A) 0.1 k/uL (0-0.7); Eosinophils % (A) 1 %; HCT 44.3 % (39.0-53.0); HGB 14.9 gm/dL (13.0-17.5); Lymphocytes # (A) 1.5 k/uL (1.0-4.8); Lymphocytes % (A) 14 %; MCH 31.1 pg (25.0-35.0); MCHC 33.8 g/dL (31.0-37.0); MCV 92.1 fL (80.0-100.0); Mean Platelet Volume 7.9; Monocytes # (A) 0.5 k/uL (0-1.0); Monocytes % (A) 5 %; Neutrophils # (A) 8.3 k/uL (1.3-7.7); Neutrophils % (A) 79 %; Platelet Count 227 k/uL (150-450); RBC 4.81 m/uL (4.30-5.90); WBC 10.6 k/uL (3.8-10.6)
[2021-06-21 10:07] LABS: African American GFR (CKD) >90 (>60 ml/min/1.73 sqM); Anion Gap 3 mmol/L; Blood Urea Nitrogen 11 mg/dL (9-20); Calcium 8.9 mg/dL (8.4-10.2); Carbon Dioxide 26 mmol/L (22-30); Chloride 109 mmol/L (98-107); Glucose 117 mg/dL (74-99); Non-African American GFR(CKD) >90 (>60 ml/min/1.73 sqM); Potassium 4.1 mmol/L (3.5-5.1); Sodium 138 mmol/L (137-145)
[2021-06-21] MEDS ORDERED: ONDANSETRON ODT 8 MG TAB.RAPDIS PO PRN (11:23)
[2021-06-21] MEDS ORDERED: NON FORMULARY DRUG (Bictegrav/Emtricit/Tenofov Ala [Biktarvy 50-200-25 Mg Tablet] 1 EACH T PO SCH (11:45)
[2021-06-21 11:55] VITALS: RESP 16
[2021-06-21] MEDS ORDERED: SPIRONOLACTONE 25 MG TAB PO SCH (12:00)
[2021-06-21] MEDS ORDERED: glipiZIDE 10 MG TAB PO SCH (12:00)
--- NOTE | 2021-06-21 12:07 | MR ---
EXAMINATION TYPE: MR brain wo/w con DATE OF EXAM: 06/21/2021 COMPARISON: CT brain 06/20/2021, MR brain 03/21/2020 HISTORY: Pontine hemorrhage, headache TECHNIQUE: Multiplanar, multisequence images of the brain and brainstem is performed without and with IV contras t, utilizing 10ml mL intravenous Gadavist . FINDINGS: Diffusion weighted images demonstrate no evidence of a recent infarct or other diffusion ab normality. There is no extra-axial fluid collection, the white matter signal abnormality, confluent pericallosal and periventricular hyperintensity and inversion recovery T2-weighted sequences is again seen and has improved somewhat in the interval. The ventricular system and cisternal spaces are nor mal in size and appearance. The brain volume is age appropriate. The normality seen within the deloris on CT is not seen as well seen on MRI. T2 hyperintensity is suspected on axial image #10 correspondin g to the abnormality is seen on CT, questionable serpiginous peripheral low signal may represent a he mosiderin ring, no abnormal enhancement, findings may correlate to late acute to early subacute phase . Midline structures demonstrate normal morphology. The craniocervical junction appears within normal limits. Post contrast images demonstrate no abnormal enhancement. The dural venous sinuses appear pa tent. The visualized sinuses are improved compared to prior, mild mucosal disease present in the ethm oid air cells and the globes are intact. IMPRESSION: Pontine hemorrhage is not as conspicuous as on CT as described. White matter signal guajardo es have improved in the interval.
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
[2021-06-21] MEDS ORDERED: CYANOCOBALAMIN 1,000 MCG/ML 1 ML VIAL IM ONE (14:42)
[2021-06-21] MEDS ORDERED: FOLIC ACID 1 MG TAB PO SCH (14:45)
[2021-06-21] MEDS ORDERED: PYRIDOXINE 50 MG TAB PO SCH (14:45)
[2021-06-21 16:12] VITALS: BP 128/85; PULSE 83; TEMP 97.5
--- NOTE | 2021-06-21 17:07 | CT ---
EXAMINATION TYPE: CT angio head neck DATE OF EXAM: 06/21/2021 HISTORY: Pontine hem, traum, r/o vertebrobasilar art dissec COMPARISON: CT dated 06/20/2021 and MRI dated 06/21/2021 CT DLP: 451.6 mGycm. Automated Exposure Control for Dose Reduction was Utilized. TECHNIQUE: CTA scan of the neck is performed with IV Contrast, patient injected with 65 mL of Isovue 370, axial images are obtained, coronal and sagittal reformatted images are reviewed. MIP and 3D rec onstructed images are created on an independent workstation and reviewed. FINDINGS: Carotid/Vascular Structures: Separate origin of the left vertebral artery arising from the aortic arch posterior to the origin of the left subclavian artery. Bilateral -type pharmacy care coordinator with small basilar artery. Otherwise normal caliber and enhancement of the neck arteries and intracranial arteries without signi ficant stenosis, occlusion, dissection, aneurysm or AV malformation. Patent major intracranial venous sinuses. Other: Slightly prominent nasopharyngeal and palatine tonsils, more on the left side. IMPRESSION: Articular anatomical variants as described above. Otherwise unremarkable CTA of the neck and intracra nial arteries
[2021-06-21] MEDS: SODIUM CHLORIDE 0.9% 1,000 ML IV SCH (17:20)
[2021-06-21 17:55] LABS: Amphetamine Screen,Urine Not Detected (NotDetected); Barbiturate Screen,Urine Not Detected (NotDetected); Benzodiazepines Screen,Urine Detected (NotDetected); Cocaine Screen,Urine Not Detected (NotDetected); Methadone Screen, Urine Not Detected (NotDetected); Opiate Screen,Urine Detected (NotDetected); Oxycodone Screen, Urine Not Detected (NotDetected); Phencyclidine Screen,Urine Not Detected (NotDetected); Tricyclic Antidepressant,Urine Detected (NotDetected); Urn Cannabinoid Scrn Detected (NotDetected)
[2021-06-21 19:06] LABS: Folate, Serum 8.3 ng/mL (4.40-31.00)
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
[2021-06-22] MEDS ORDERED: CYANOCOBALAMIN 500 MCG TAB PO SCH (09:00)
== END 2021-06-21 18:53 | disposition home or self-care (01) ==
LOC: EC 20:52 → 1SOBS 23:30 → 6NMEDSUR 06-21 01:07
PROVIDERS: ADMIT Hospitalist; ATTEND Hospitalist
DX: S06.389A Contusion, laceration, and hemorrhage of brainstem with loss of consciousness of unspecified duration, initial encounter (principal); Z76.0 Encounter for issue of repeat prescription; F17.200 Nicotine dependence, unspecified, uncomplicated; G43.909 Migraine, unspecified, not intractable, without status migrainosus; B20 Human immunodeficiency virus [HIV] disease; M54.2 Cervicalgia; H53.8 Other visual disturbances; E53.8 Deficiency of other specified B group vitamins; E53.1 Pyridoxine deficiency; R25.2 Cramp and spasm; F64.0 Transsexualism; E66.9 Obesity, unspecified; Z68.35 Body mass index [BMI] 35.0-35.9, adult; Y04.0XXA Assault by unarmed brawl or fight, initial encounter; Z20.822 Contact with and (suspected) exposure to COVID-19; Z86.73 Personal history of transient ischemic attack (TIA), and cerebral infarction without residual deficits; Z86.14 Personal history of Methicillin resistant Staphylococcus aureus infection; Z79.84 Long term (current) use of oral hypoglycemic drugs; Z79.890 Hormone replacement therapy; Z79.899 Other long term (current) drug therapy; Z88.0 Allergy status to penicillin; Z90.49 Acquired absence of other specified parts of digestive tract; Z71.6 Tobacco abuse counseling; Z82.49 Family history of ischemic heart disease and other diseases of the circulatory system; Z82.3 Family history of stroke; Z83.79 Family history of other diseases of the digestive system
CPT/HCPCS: 96376; 96372; 96375; 96374; 99285; 80048; 82607; 82746; 85025; 80306; 87635; 70496; 70450; 70498; 70553; G0378 ×3; J2270 ×2; J3420; C9113; Q9967; A9585

== ENCOUNTER 2021-08-13 20:38 | Emergency (ER) | payer OTHER ==
[2021-08-13 20:55] VITALS: RESP 18; TEMP 97.6
[2021-08-13 21:42] LABS: Basophils % (A) 0 %; Eosinophils # (A) 0.2 k/uL (0-0.7); Eosinophils % (A) 2 %; HCT 44.5 % (39.0-53.0); HGB 15.6 gm/dL (13.0-17.5); Lymphocytes # (A) 1.9 k/uL (1.0-4.8); Lymphocytes % (A) 15 %; MCH 31.4 pg (25.0-35.0); MCV 89.9 fL (80.0-100.0); Mean Platelet Volume 7.9; Monocytes # (A) 0.5 k/uL (0-1.0); Monocytes % (A) 4 %; Neutrophils # (A) 9.3 k/uL (1.3-7.7); Neutrophils % (A) 77 %; Platelet Count 287 k/uL (150-450); RBC 4.95 m/uL (4.30-5.90); RDW 13.3 % (11.5-15.5); WBC 12.1 k/uL (3.8-10.6)
[2021-08-13 21:47] LABS: African American GFR (CKD) >90 (>60 ml/min/1.73 sqM); Alcohol <10 mg/dL; Anion Gap 6 mmol/L; Blood Urea Nitrogen 12 mg/dL (9-20); Calcium 9.2 mg/dL (8.4-10.2); Carbon Dioxide 27 mmol/L (22-30); Chloride 106 mmol/L (98-107); Glucose 166 mg/dL (74-99); Magnesium 1.8 mg/dL (1.6-2.3); Non-African American GFR(CKD) >90 (>60 ml/min/1.73 sqM); Potassium 4.1 mmol/L (3.5-5.1); Sodium 139 mmol/L (137-145)
--- NOTE | 2021-08-13 22:04 | ED ---
General Adult HPI - General Chief complaint: Overdose Stated complaint: mental health Time Seen by Provider: 08/13/21 20:56 Source: patient, police, EMS, RN notes reviewed, old records reviewed Mode of arrival: EMS - History of Present Illness Initial comments: Patient is a 31-year-old male who was brought to the emergency department over concern for suicidal thoughts. Patient was petitioned by cousin. The petition states "on a phone conversation, Alistair said it would be better if he was may be he should just kill himself." Patient took his normal evening doses of m edications, as he takes 1 mg tablets of Ativan for anxiety and took 2 of these. He also took 3 Flexeril's. Denies any overdose attempt. States he normally takes as many. Has a history of restless leg syndrome. Patient currently denies any other acute complaints. States he was sleeping when he was picked up by EMS for evaluation. Patient does prefer to go by [facility]. Patient otherwise is in no acute distress. Denies any suicide attempts, plans per denies any homicidal ideations, attempts, plans. Denies any visual or auditory hallucinations. To me, the patient denies any suicidal ideations as well. Denies drinking alcohol this evening. Taking any other medications or drugs. Presents for further evaluation at this time. - Related Data Home Medications Medication Instructions Recorded Confirmed glyBURIDE [Diabeta] 20 mg PO DAILY 08/13/19 08/13/21 Ondansetron Odt [Zofran ODT] 8 mg PO DAILY PRN 09/05/19 08/13/21 Bictegrav/Emtricit/Tenofov Ala 1 tab PO DAILY 01/16/21 08/13/21 [Biktarvy 50-200-25 mg Tablet] Cyclobenzaprine [Flexeril] 10 mg PO BID PRN 01/16/21 08/13/21 Estradiol 3 mg PO DAILY 01/16/21 08/13/21 Spironolactone 100 mg PO DAILY 01/16/21 08/13/21 LORazepam [Ativan] 1 mg PO DAILY PRN 06/18/21 08/13/21 Atorvastatin Calcium [Lipitor] 20 mg PO HS 08/13/21 08/13/21 Dextroamphetamine/Amphetamine 20 mg PO TID 08/13/21 08/13/21 [Adderall Xr] Allergies Allergy/AdvReac Type Severity Reaction Status Date / Time Penicillins Allergy Unknown Verified 08/13/21 21:40 Childhood Review of Systems ROS Statement: Those systems with pertinent positive or pertinent negative responses have been documented in the HPI. Review of Systems: CONST: Denies fever EYES: Denies blurry vision ENT: Denies nasal congestion C/V: Denies Chest pain RESP: Denies shortness of breath GI: Denies abdominal pain : Denies dysuria SKIN: Denies rash. MSK: Denies joint pain. NEURO: Denies headache PSYCH: Denies suicidal and homicidal ideations/plans/attempts. Denies visual or auditory hallucinations. ROS Other: All systems not noted in ROS Statement are negative. Past Medical History Past Medical History: CVA/TIA Additional Past Medical History / Comment(s): migraines, stroke in 2019 History of Any Multi-Drug Resistant Organisms: MRSA Date of last positivie culture/infection: 07/27/18 MDRO Source:: AX[facility]A Past Surgical History: Cholecystectomy Past Psychological History: No Psychological Hx Reported Smoking Status: Current every day smoker Past Alcohol Use History: Rare Past Drug Use History: Marijuana - Past Family History Mother Family Medical History: CVA/TIA, Liver Disease Father Family Medical History: Myocardial Infarction ([place]) General Exam - General Exam Comments Initial Comments: General: Appears in no acute distress. HEAD: Normal with no signs of head trauma. EYES: PERRLA, EOMI, conjunctiva normal, no discharge. ENT: Hearing grossly intact, normal oropharynx. RESPIRATORY: Clear breath sounds bilaterally. No wheezes, rales, or rhonchi. C/V: Regular rate and rhythm. S1 and S2 auscultated, no edema, peripheral pulses 2+ and intact throughout ABD: Abd is soft, nontender, nondistended EXT: Normal range of motion, no obvious deformity SKIN: No rashes or lesions observed on exposed skin. NEURO: Alert and oriented x 4. Cranial nerves II-XII intact. No focal sensory or strength deficits. GCS of 15. NIH of 0. Course Vital Signs 08/13/21 20:41 Temperature 97.6 F Pulse Rate 102 H Respiratory 18 Rate Blood Pressure 128/84 O2 Sat by Pulse 99 Oximetry Medical Decision Making - Medical Decision Making Based on patient's presentation and physical exam, I'm concerned for evaluation for psychiatric rotation. Patient states that normal doses of his Flexeril and Ativan were taken at home. Denies any current suicidal ideations, attempts, plans. Denies any homicidal ideations, attempts, plans. Does endorse stating, albuterol offhanded, that he would like to kill himself. States he has not serious regarding this. However we will have psychiatry evaluate the patient following basic labs and screening EKG. UDS was also ordered. Suicide precautions were ordered. Patient was placed in green scrubs. Sitter was ordered. Alcohol is negative. Patient has a mild leukocytosis with no signs of infect ion. No other acute findings on labs. Screening EKG shows no signs of acute ischemia. UDS is still pending at this time. At this time, patient is likely. For evaluation by psychiatry. Disposition is pending psychiatric evaluation. Psychiatry evaluated the patient. Patient does not meet inpatient psychiatric criteria. Patient is stable for discharge home. Patient was therefore discharged home in good condition. - Lab Data Result diagrams: 08/13/21 21:26 08/13/21 21:26 Lab Results 08/13/21 08/13/21 Range/Units 21:26 21:26 WBC 12.1 H (3.8-10.6) k/uL RBC 4.95 (4.30-5.90) m/uL Hgb 15.6 (13.0-17.5) gm/dL Hct 44.5 (39.0-53.0) % MCV 89.9 (80.0-100.0) fL MCH 31.4 (25.0-35.0) pg MCHC 35.0 (31.0-37.0) g/dL RDW 13.3 (11.5-15.5) % Plt Count 287 (150-450) k/uL MPV 7.9 Neutrophils % 77 % Lymphocytes % 15 % Monocytes % 4 % Eosinophils % 2 % Basophils % 0 % Neutrophils # 9.3 H (1.3-7.7) k/uL Lymphocytes # 1.9 (1.0-4.8) k/uL Monocytes # 0.5 (0-1.0) k/uL Eosinophils # 0.2 (0-0.7) k/uL Basophils # 0.0 (0-0.2) k/uL Sodium 139 (137-145) mmol/L Potassium 4.1 (3.5-5.1) mmol/L Chloride 106 (98-107) mmol/L Carbon Dioxide 27 (22-30) mmol/L Anion Gap 6 mmol/L BUN 12 (9-20) mg/dL Creatinine 1.03 (0.66-1.25) mg/dL Est GFR (CKD-EPI)AfAm >90 (>60 ml/min/1.73 sqM) Est GFR (CKD-EPI)NonAf >90 (>60 ml/min/1.73 sqM) Glucose 166 H (74-99) mg/dL Calcium 9.2 (8.4-10.2) mg/dL Magnesium 1.8 (1.6-2.3) mg/dL Serum Alcohol <10 mg/dL - EKG Data -: EKG Interpreted by Me EKG Comments: 12-lead Electrocardiogram Interpretation Note EKG was reviewed and interpreted by myself. 12-lead ECG performed at 2121 is interpreted by me as revealing normal sinus rhythm at a rate of 93 beats per minute. [place] is normal. VT intervals 171 ms, QRS duration is 81 ms, QTc is 381 ms.. There were no ST or T wave abnormalities to suggest myocardial ischemia or injury. R wave progression across the precordium was satisfactory. By my interpretation this EKG is non-diagnostic for acute ischemia. Disposition Clinical Impression: Encounter for psychiatric assessment Disposition: HOME SELF-CARE Condition: Good Is patient prescribed a controlled substance at d/c from ED?: No Referrals: Giorgio Flores DO [Primary Care Provider] - 1-2 days Time of Disposition: 23:10
[2021-08-14 03:43] VITALS: BP 138/92; PULSE 114
[2021-08-14 11:49] LABS: Urine Alcohol Negative (Negative); Urine Barbiturate Negative (Negative); Urine Cocaine Negative (Negative); Urine Methadone Negative (Negative); Urine Opiates Negative (Negative); Urine Phencyclidine Negative (Negative)
== END 2021-08-14 03:55 | disposition home or self-care (01) ==
LOC: EC 20:38
DX: Z04.6 Encounter for general psychiatric examination, requested by authority (principal); Z86.73 Personal history of transient ischemic attack (TIA), and cerebral infarction without residual deficits; F17.200 Nicotine dependence, unspecified, uncomplicated; Z82.49 Family history of ischemic heart disease and other diseases of the circulatory system; Z88.0 Allergy status to penicillin
CPT/HCPCS: 82075; 36415; 93005; 80048; 83735; 85025; 80306; 99285; G0480; 80320

== ENCOUNTER 2021-09-22 18:33 | Emergency (ER) | payer OTHER ==
[2021-09-22 19:22] VITALS: BP 133/81; PULSE 98; RESP 18; TEMP 98.3
--- NOTE | 2021-09-22 19:44 | XR ---
EXAMINATION TYPE: XR foot complete RT DATE OF EXAM: 09/22/2021 COMPARISON: NONE HISTORY: Pain TECHNIQUE: 3 views FINDINGS: Metatarsals are intact. No fracture nor dislocation. Joint spaces are normal IMPRESSION: Negative right foot exam. No fracture.
--- NOTE | 2021-09-22 19:46 | XR ---
EXAMINATION TYPE: XR ankle complete RT DATE OF EXAM: 09/22/2021 COMPARISON: NONE HISTORY: Pain TECHNIQUE: 3 FINDINGS: Ankle mortise is anatomic. I see no fracture nor dislocation. Joint spaces are normal IMPRESSION: Negative right ankle exam. No fracture.
[2021-09-22] MEDS ORDERED: IBUPROFEN 600 MG STARTER PACK 4 TAB BTL PO STA (21:22)
[2021-09-22] MEDS ORDERED: ACET/COD 300 MG/30 MG STARTER PACK 6 TAB BTL PO STA (21:22)
--- NOTE | 2021-09-22 21:25 | ED ---
Lower Extremity Injury HPI - General Chief Complaint: Extremity Injury, Lower Stated Complaint: Rt Foot Pain Time Seen by Provider: 09/22/21 20:36 Source: patient, RN notes reviewed Mode of arrival: wheelchair Limitations: no limitations - History of Present Illness Initial Comments: This is a 31-year-old male who presents to the emergency department for right foot pain. Patient states that he woke up with this pain and denies any injury. States that he did break that foot several years ago and was told he needed surgery but never followed through with this. The pain is on the dorsal aspect of the right foot just below the ankle. States that he is having some difficulty with ambulation, however he has not taken any medication or otherwise treated his symptoms. Denies any fevers, chills, sore throat, cough, dyspnea, chest pain, palpitations, abdominal pain, nausea, vomiting, diarrhea, back pain, or headaches. MD Complaint: other (Foot pain) - Related Data Home Medications Medication Instructions Recorded Confirmed glyBURIDE [Diabeta] 20 mg PO DAILY 08/13/19 08/13/21 Ondansetron Odt [Zofran ODT] 8 mg PO DAILY PRN 09/05/19 08/13/21 Bictegrav/Emtricit/Tenofov Ala 1 tab PO DAILY 01/16/21 08/13/21 [Biktarvy 50-200-25 mg Tablet] Cyclobenzaprine [Flexeril] 10 mg PO BID PRN 01/16/21 08/13/21 Estradiol 3 mg PO DAILY 01/16/21 08/13/21 Spironolactone 100 mg PO DAILY 01/16/21 08/13/21 LORazepam [Ativan] 1 mg PO DAILY PRN 06/18/21 08/13/21 Atorvastatin Calcium [Lipitor] 20 mg PO HS 08/13/21 08/13/21 Dextroamphetamine/Amphetamine 20 mg PO TID 08/13/21 08/13/21 [Adderall Xr] Allergies Allergy/AdvReac Type Severity Reaction Status Date / Time Penicillins Allergy Unknown Verified 08/13/21 21:40 Childhood Review of Systems ROS Statement: Those systems with pertinent positive or pertinent negative responses have been documented in the HPI. ROS Other: All systems not noted in ROS Statement are negative. Past Medical History Past Medical History: CVA/TIA Additional Past Medical History / Comment(s): migraines, stroke in 2019 History of Any Multi-Drug Resistant Organisms: MRSA Date of last positivie culture/infection: 07/27/18 MDRO Source:: AXILLA Past Surgical History: Cholecystectomy Past Psychological History: No Psychological Hx Reported Smoking Status: Current every day smoker Past Alcohol Use History: Rare Past Drug Use History: Marijuana - Past Family History Mother Family Medical History: CVA/TIA, Liver Disease Father Family Medical History: Myocardial Infarction ([place]) General Exam Limitations: no limitations General appearance: alert, in no apparent distress Head exam: Present: atraumatic, normocephalic, normal inspection Respiratory exam: Present: normal lung sounds bilaterally. Absent: respiratory distress, wheezes, rales, rhonchi, stridor Cardiovascular Exam: Present: regular rate, normal rhythm, normal heart sounds. Absent: systolic murmur, diastolic murmur, rubs, gallop, clicks Extremities exam: Present: other (Mild tenderness to palpation of the dorsal aspect of the right foot just below the ankle. No swelling or erythema. Negative talar tilt. 2+ dorsalis pedis and tibialis posterior pulses. Capillary refill <1 second.) Neurological exam: Present: alert, oriented X3, CN II-XII intact Psychiatric exam: Present: normal affect, normal mood Skin exam: Present: warm, dry, intact, normal color. Absent: rash Course Vital Signs 09/22/21 19:20 Temperature 98.3 F Pulse Rate 98 Respiratory 18 Rate Blood Pressure 133/81 O2 Sat by Pulse 98 Oximetry Medical Decision Making - Medical Decision Making This is a 31-year-old male who presents to the emergency department for right f oot pain. X-ray of the foot and ankle were negative for any acute problems. Patient was offered an air stirrup splint or a surgical shoe, however he declined. Patient states that he has a history of previous right foot injury and was supposed to have surgery. Advised that this may have been exacerbated, and advised he follow-up with his orthopedic provider. Starter packs for Tylenol #3 and ibuprofen provided. Recommended icing the foot for the first 2 days followed by heat there afterwards. Return precautions reviewed in depth, the patient is instructed to return to the emergency department with any new, worsening, or concerning symptoms. Patient verbalized understanding. This case was discussed in detail with the attending ED physician. Presentation, findings, and treatment plan discussed in detail as well. - Radiology Data Radiology results: report reviewed, image reviewed Disposition Clinical Impression: Foot pain, right Disposition: HOME SELF-CARE Instructions (If sedation given, give patient instructions): Foot Sprain (ED) Additional Instructions: Return to the emergency department with any new, worsening, or concerning symptoms. Contact orthopedics for a follow-up appointment. Follow up with your primary care provider in 1-2 days. Is patient prescribed a controlled substance at d/c from ED?: No Referrals: Giorgio Flores DO [Primary Care Provider] - 1-2 days Prakash Castrejon MD [Medical Doctor] - 1-2 days Pravin Schmitt DO [Doctor of Osteopathic Medicine] - 1-2 days
== END 2021-09-22 21:51 | disposition home or self-care (01) ==
LOC: EC 18:33
DX: M79.671 Pain in right foot (principal); Z88.0 Allergy status to penicillin; Z86.73 Personal history of transient ischemic attack (TIA), and cerebral infarction without residual deficits; F17.200 Nicotine dependence, unspecified, uncomplicated

== ENCOUNTER 2022-02-23 11:08 | Emergency (ER) | payer OTHER ==
[2022-02-23 11:38] VITALS: RESP 18; TEMP 98.3
[2022-02-23] MEDS ORDERED: methylPREDNISolone ACETATE 80 MG/ML 1 ML VIAL IM STA (12:22)
--- NOTE | 2022-02-23 12:25 | ED ---
Lower Extremity Injury HPI - General Chief Complaint: Extremity Injury, Lower Stated Complaint: foot ankle pain Time Seen by Provider: 02/23/22 11:44 Source: patient, RN notes reviewed Mode of arrival: ambulatory Limitations: no limitations - History of Present Illness Initial Comments: Patient is a 31-year-old male presenting is a female who is complaining of pain in her right foot. She reports chronic right foot pain and injury with need for surgical intervention which she has been postponing. She reports that she follows with the surgeon who typically gives her injections into her foot when the pain occurs. She denies any trauma or injury. She does report that she stands on her feet for prolonged periods of time at work. She denies any other complaints or concerns including any chest pain, shortness of breath, abdominal pain, nausea, vomiting, fevers or chills. She has a past medical history significant for migraines, HIV, anemia, and CVA in addition to her previous right foot injury. - Related Data Home Medications Medication Instructions Recorded Confirmed glyBURIDE [Diabeta] 20 mg PO DAILY 08/13/19 08/13/21 Ondansetron Odt [Zofran ODT] 8 mg PO DAILY PRN 09/05/19 08/13/21 Bictegrav/Emtricit/Tenofov Ala 1 tab PO DAILY 01/16/21 08/13/21 [Biktarvy 50-200-25 mg Tablet] Cyclobenzaprine [Flexeril] 10 mg PO BID PRN 01/16/21 08/13/21 Spironolactone 100 mg PO DAILY 01/16/21 08/13/21 estradioL [Estradiol] 3 mg PO DAILY 01/16/21 08/13/21 LORazepam [Ativan] 1 mg PO DAILY PRN 06/18/21 08/13/21 Atorvastatin Calcium [Lipitor] 20 mg PO HS 08/13/21 08/13/21 Dextroamphetamine/Amphetamine 20 mg PO TID 08/13/21 08/13/21 [Adderall Xr] Previous Rx's Medication Instructions Recorded predniSONE [Deltasone] 20 mg PO BID 5 Days #10 tab 02/23/22 Allergies Allergy/AdvReac Type Severity Reaction Status Date / Time Penicillins Allergy Unknown Verified 02/23/22 11:38 Childhood Review of Systems ROS Statement: Those systems with pertinent positive or pertinent negative responses have been documented in the HPI. ROS Other: All systems not noted in ROS Statement are negative. Past Medical History Past Medical History: CVA/TIA Additional Past Medical History / Comment(s): migraines, stroke in 2019 History of Any Multi-Drug Resistant Organisms: MRSA Date of last positivie culture/infection: 07/27/18 MDRO Source:: AXILLA Past Surgical History: Cholecystectomy Past Psychological History: No Psychological Hx Reported Smoking Status: Current every day smoker Past Alcohol Use History: Rare Past Drug Use History: Marijuana - Past Family History Mother Family Medical History: CVA/TIA, Liver Disease Father Family Medical History: Myocardial Infarction ([place]) General Exam Limitations: no limitations General appearance: alert, in no apparent distress Head exam: Present: atraumatic, normocephalic, normal inspection Eye exam: Present: normal appearance, PERRL, EOMI. Absent: scleral icterus, conjunctival injection, periorbital swelling ENT exam: Present: normal exam, mucous membranes moist Neck exam: Present: normal inspection, full ROM Respiratory exam: Absent: respiratory distress, accessory muscle use Cardiovascular Exam: Present: regular rate GI/Abdominal exam: Absent: distended Right Foot/Toe exam: Present: full ROM, tenderness, swelling (trace). Absent: abrasion, laceration, ecchymosis, deformity, crepitus, dislocation, erythema Neurovascular tendon exam: Present: no vascular compromise Gait: observed and limited by pain Back exam: Present: normal inspection Neurological exam: Present: alert, oriented X3, CN II-XII intact Psychiatric exam: Present: normal affect, normal mood Skin exam: Present: warm, dry, intact, normal color. Absent: rash Course Vital Signs 02/23/22 02/23/22 11:36 13:57 Temperature 98.3 F Pulse Rate 116 H 75 Respiratory 18 18 Rate Blood Pressure 161/93 136/76 O2 Sat by Pulse 95 99 Oximetry Medical Decision Making - Medical Decision Making 31-year-old presenting with acute on chronic pain to the right foot and ankle swelling. Will obtain x-ray of right foot and right ankle and give 80 mg of D epo-Medrol with plan for first steroids. Patient refuses x-ray of right ankle will proceed with x-ray of right foot. X-ray of the right foot reveals no acute osseous pathology. Tolerated Depo-Medr ol injection well. Will discharge home on steroids with follow-up with her glass tube bender and primary care provider. Case discussed with Dr. Falcon. - Radiology Data Radiology results: report reviewed, image reviewed X-ray right foot complete no acute osseous abnormality of the right foot. Chronic change at the navicular is present. Disposition Clinical Impression: Right foot pain Disposition: HOME SELF-CARE Instructions (If sedation given, give patient instructions): Metatarsalgia (DC) Additional Instructions: His complete course of steroids as prescribed. May utilize Tylenol as needed for pain while on steroids do not take NSAIDs while taking steroids. Proper footwear encouraged. Avoid prolonged standing when possible. Please follow-up with your primary care provider and her glass tube bender. Please return to the Emergency Department if symptoms worsen or any other concerns. Prescriptions: predniSONE [Deltasone] 20 mg PO BID 5 Days #10 tab Is patient prescribed a controlled substance at d/c from ED?: No Referrals: Giorgio Flores DO [Primary Care Provider] - 1-2 days Time of Disposition: 12:38
--- NOTE | 2022-02-23 13:37 | XR ---
EXAMINATION TYPE: XR foot complete RT DATE OF EXAM: 02/23/2022 COMPARISON: 09/22/2021 HISTORY: Pain TECHNIQUE: Three-view right foot FINDINGS: No acute fracture or dislocation is evident. Soft tissues appear normal. Joint spaces appea r preserved. Chronic change at the navicular is evident. Follow up exams can be performed 7-10 days from acute trauma for continued pain. IMPRESSION: 1. No acute osseous abnormality right foot.
[2022-02-23 13:58] VITALS: BP 136/76; PULSE 75
== END 2022-02-23 13:58 | disposition home or self-care (01) ==
LOC: EC 11:08
DX: M25.571 Pain in right ankle and joints of right foot (principal); Z86.73 Personal history of transient ischemic attack (TIA), and cerebral infarction without residual deficits; F17.200 Nicotine dependence, unspecified, uncomplicated; F12.90 Cannabis use, unspecified, uncomplicated; Z88.0 Allergy status to penicillin; Z79.899 Other long term (current) drug therapy
CPT/HCPCS: 73630; 99283; 96372; J1040

== ENCOUNTER 2022-05-17 11:08 | Emergency (ER) | payer OTHER ==
--- NOTE | 2022-05-17 12:37 | XR ---
Right ankle HISTORY: Pain COMPARISON: 09/22/2021. TECHNIQUE: 3 views the right ankle were obtained. FINDINGS: There is no fracture, dislocation, intraosseous or intra-articular body. There is no radiopaque forei gn body or soft tissue calcification. IMPRESSION: No significant abnormality seen.
--- NOTE | 2022-05-17 12:38 | XR ---
Right foot. HISTORY: Pain COMPARISON: 02/23/2022. TECHNIQUE: 3 views the right foot were obtained. FINDINGS: There is no fracture, dislocation, intraosseous or intra-articular abnormality. There is no radiopaqu e foreign body or abnormal soft tissue calcification. IMPRESSION: No significant abnormality seen.
[2022-05-17] MEDS ORDERED: ACET/COD 300 MG/30 MG STARTER PACK 6 TAB BTL PO STA (13:10)
--- NOTE | 2022-05-17 13:11 | ED ---
Lower Extremity Injury HPI - General Chief Complaint: Extremity Injury, Lower Stated Complaint: Fall,Back Pain Time Seen by Provider: 05/17/22 11:30 Source: patient, RN notes reviewed Mode of arrival: ambulatory Limitations: no limitations - History of Present Illness Initial Comments: 31-year-old presents emergency Department chief complaint of right ankle, foot injury. Patient reportedly stepped wrong and rolled her ankle, foot. Patient had prior fracture no paresthesias no other complaints. - Related Data Home Medications Medication Instructions Recorded Confirmed glyBURIDE [Diabeta] 20 mg PO DAILY 08/13/19 08/13/21 Ondansetron Odt [Zofran ODT] 8 mg PO DAILY PRN 09/05/19 08/13/21 Bictegrav/Emtricit/Tenofov Ala 1 tab PO DAILY 01/16/21 08/13/21 [Biktarvy 50-200-25 mg Tablet] Cyclobenzaprine [Flexeril] 10 mg PO BID PRN 01/16/21 08/13/21 Spironolactone 100 mg PO DAILY 01/16/21 08/13/21 estradioL [Estradiol] 3 mg PO DAILY 01/16/21 08/13/21 LORazepam [Ativan] 1 mg PO DAILY PRN 06/18/21 08/13/21 Atorvastatin Calcium [Lipitor] 20 mg PO HS 08/13/21 08/13/21 Dextroamphetamine/Amphetamine 20 mg PO TID 08/13/21 08/13/21 [Adderall Xr] Previous Rx's Medication Instructions Recorded predniSONE [Deltasone] 20 mg PO BID 5 Days #10 tab 02/23/22 Allergies Allergy/AdvReac Type Severity Reaction Status Date / Time Penicillins Allergy Unknown Verified 05/17/22 11:29 Childhood Review of Systems ROS Statement: Those systems with pertinent positive or pertinent negative responses have been documented in the HPI. ROS Other: All systems not noted in ROS Statement are negative. Past Medical History Past Medical History: CVA/TIA Additional Past Medical History / Comment(s): migraines, stroke in 2020 History of Any Multi-Drug Resistant Organisms: MRSA Date of last positivie culture/infection: 07/27/18 MDRO Source:: [facility]A Past Surgical History: Cholecystectomy Past Psychological History: No Psychological Hx Reported Smoking Status: Current every day smoker Past Alcohol Use History: Rare Past Drug Use History: Marijuana - Past Family History Mother Family Medical History: CVA/TIA, Liver Disease Father Family Medical History: Myocardial Infarction ([place]) General Exam Limitations: no limitations General appearance: alert, in no apparent distress Head exam: Present: atraumatic, normocephalic, normal inspection Neck exam: Present: normal inspection, full ROM. Absent: tenderness, meningismus, lymphadenopathy Respiratory exam: Present: normal lung sounds bilaterally. Absent: respiratory distress, wheezes, rales, rhonchi, stridor Cardiovascular Exam: Present: regular rate, normal rhythm, normal heart sounds. Absent: systolic murmur, diastolic murmur, rubs, gallop, clicks Extremities exam: Present: other (Right ankle there is tenderness on lateral portion, lateral to mid foot. No vascular intact no proximal tib-fib tenderness) Course Vital Signs 05/17/22 11:26 Temperature 98.8 F Pulse Rate 94 Respiratory 16 Rate Blood Pressure 142/88 O2 Sat by Pulse 98 Oximetry Medical Decision Making - Medical Decision Making Was pt. sent in by a medical professional or institution (, PA, ROLLER HELPER, urgent care, hospital, or intermediate...) When possible be specific @ -No Did you speak to anyone other than the patient for history (EMS, parent, family, police, friend...)? What history was obtained from this source @ -No Did you review nursing and triage notes (agree or disagree)? Why? @ -I reviewed and agree with nursing and triage notes Were old charts reviewed (outside hosp., previous admission, EMS record, old EKG, old radiological studies, urgent care reports/EKG's, intermediate records)? Report findings @ -No old charts were reviewed Differential Diagnosis (chest pain, altered mental status, abdominal pain women, abdominal pain men, vaginal bleeding, weakness, fever, dyspnea, syncope, headache, dizziness, GI bleed, back pain, seizure, CVA, palpatations, mental health)? @ -[Right ankle fracture, right foot fracture, right ankle sprain, right foot sprain, dislocation EKG interpreted by me (3pts min.). @ -[None X-rays interpreted by me (1pt min.). @ -X-ray of the right foot and ankle or interpreted no acute fracture or dislocation noted. CT interpreted by me (1pt min.). @ -None done U/S interpreted by me (1pt. min.). @ -None done What testing was considered but not performed or refused? (CT, X-rays, U/S, labs)? Why? @ -None What meds were considered but not given or refused? Why? @ -None Did you discuss the management of the patient with other professionals (professionals i.e. Dr., PA, ROLLER HELPER, lab, RT, psych nurse, director of social services, scout, teacher, special officer, case finishing machine adjuster)? Give summary @ -No Was smoking cessation discussed for >3mins.? @ -No Was critical care preformed (if so, how long)? @ -No Were there social determinants of health that impacted care today? How? (Homelessness, low income, unemployed, alcoholism, drug addiction, transportation, low edu. Level, literacy, decrease access to med. care, alf, rehab)? @ -No Was there de-escalation of care discussed even if they declined (Discuss DNR or withdrawal of care, Hospice)? DNR status @ -No What co-morbidities impacted this encounter? (DM, HTN, Smoking, COPD, CAD, Cancer, CVA, ARF, Chemo, Hep., AIDS, mental health diagnosis, sleep apnea, morbid obesity)? @ -None Was patient admitted / discharged? Hospital course, mention meds given and route, prescriptions, significant lab abnormalities, going to OR and other per tinent info. @ -Discharged, x-rays are negative for acute fracture. Patient is right ankle foot sprain will be discharged in stable condition return parameters were discussed. Undiagnosed new problem with uncertain prognosis? @ -No Drug Therapy requiring intensive monitoring for toxicity (Heparin, Nitro, Insulin, Cardizem)? @ -No Were any procedures done? @ -No Diagnosis/symptom? @ -Right foot sprain Acute, or Chronic, or Acute on Chronic? @ -Acute Uncomplicated (without systemic symptoms) or Complicated (systemic symptoms)? @ -Uncomplicated Side effects of treatment? @ -No Exacerbation, Progression, or Severe Exacerbation? @ -No Poses a threat to life or bodily function? How? (Chest pain, [place], [place], pneumonia, PE, COPD, DKA, ARF, appy, cholecystitis, CVA, Diverticulitis, Homicidal, Suicidal, threat to staff... and all critical care pts) @ -No Diagnosis/symptom? @ -Right ankle sprain Acute, or Chronic, or Acute on Chronic? @ -Acute Uncomplicated (without systemic symptoms) or Complicated (systemic symptoms)? @ -Uncomplicated Side effects of treatment? @ -none Exacerbation, Progression, or Severe Exacerbation @ -no Poses a threat to life or bodily function? @ -no Disposition Clinical Impression: Right ankle sprain, Right foot sprain Disposition: HOME SELF-CARE Condition: Stable Instructions (If sedation given, give patient instructions): Ankle Sprain (ED), Foot Sprain (ED) Additional Instructions: Please return to the Emergency Department if symptoms worsen or any other concerns. Is patient prescribed a controlled substance at d/c from ED?: No Referrals: Chang Flores MD [Primary Care Provider] - 1-2 days Time of Disposition: 13:11
[2022-05-17 13:40] VITALS: BP 110/68; PULSE 87; RESP 18; TEMP 98
== END 2022-05-17 13:28 | disposition home or self-care (01) ==
LOC: EC 11:08 → EDSEX 11:08 → EC 13:28
DX: S93.401A Sprain of unspecified ligament of right ankle, initial encounter (principal); F17.200 Nicotine dependence, unspecified, uncomplicated; F12.90 Cannabis use, unspecified, uncomplicated; Z86.73 Personal history of transient ischemic attack (TIA), and cerebral infarction without residual deficits; Z88.0 Allergy status to penicillin; X50.1XXA Overexertion from prolonged static or awkward postures, initial encounter
CPT/HCPCS: 73610; 73630; 99284; L4350

== ENCOUNTER 2022-10-03 13:28 | Emergency (ER) | payer OTHER ==
[2022-10-03 13:40] VITALS: BP 158/90; PULSE 95; RESP 20; TEMP 97.9
[2022-10-03] MEDS ORDERED: SODIUM CHLORIDE 0.9% 1,000 ML IV STA (14:00)
[2022-10-03 14:28] LABS: Basophils % (A) 0 %; Eosinophils # (A) 0.2 k/uL (0-0.7); Eosinophils % (A) 2 %; HCT 44.2 % (39.0-53.0); HGB 15.1 gm/dL (13.0-17.5); Lymphocytes # (A) 1.9 k/uL (1.0-4.8); Lymphocytes % (A) 18 %; MCH 29.2 pg (25.0-35.0); MCHC 34.2 g/dL (31.0-37.0); MCV 85.5 fL (80.0-100.0); Mean Platelet Volume 9.4; Monocytes # (A) 0.4 k/uL (0-1.0); Monocytes % (A) 4 %; Neutrophils # (A) 7.7 k/uL (1.3-7.7); Neutrophils % (A) 74 %; Platelet Count 255 k/uL (150-450); RBC 5.17 m/uL (4.30-5.90); RDW 13.4 % (11.5-15.5); WBC 10.4 k/uL (3.8-10.6)
[2022-10-03 14:36] LABS: ALT 31 U/L (4-49); AST 23 U/L (17-59); African American GFR (CKD) >90 (>60 ml/min/1.73 sqM); Albumin 4.1 g/dL (3.5-5.0); Alkaline Phosphatase 49 U/L (38-126); Amylase 54 U/L (30-110); Anion Gap 9 mmol/L; Blood Urea Nitrogen 10 mg/dL (9-20); Calcium 9.3 mg/dL (8.4-10.2); Carbon Dioxide 26 mmol/L (22-30); Chloride 104 mmol/L (98-107); Glucose 161 mg/dL (74-99); Lipase 86 U/L (23-300); Non-African American GFR(CKD) >90 (>60 ml/min/1.73 sqM); Potassium 4.5 mmol/L (3.5-5.1); Sodium 139 mmol/L (137-145); Total Bilirubin 0.6 mg/dL (0.2-1.3)
--- NOTE | 2022-10-03 15:31 | ED ---
Abdominal Pain HPI - General Chief Complaint: Abdominal Pain Stated Complaint: abd pain Time Seen by Provider: 10/03/22 13:50 Source: patient Mode of arrival: ambulatory Limitations: no limitations - History of Present Illness Initial Comments: 32-year-old male to female presenting to the ED with a chief complaint of diarrhea. Patient states 3 days ago, started to experience upper abdominal pain. States pain was intermittent but notes at this time states pain is relieved. However, patient states that he started experience diarrhea last night. Since last night she states she has had 6 episodes of nonbloody diarrhea. Denies fever. Notes history of colonoscopy which showed polyps. Denies known history of diverticulosis, ulcerative colitis, or Crohn's disease. No other complaints. - Related Data Home Medications Medication Instructions Recorded Confirmed Ondansetron Odt [Zofran ODT] 8 mg PO DAILY PRN 09/05/19 10/03/22 Bictegrav/Emtricit/Tenofov Ala 1 tab PO DAILY 01/16/21 10/03/22 [Biktarvy 50-200-25 mg Tablet] LORazepam [Ativan] 1 mg PO DAILY PRN 06/18/21 10/03/22 Atorvastatin Calcium [Lipitor] 20 mg PO HS 08/13/21 10/03/22 Omeprazole [PriLOSEC] 20 mg PO DAILY 10/03/22 10/03/22 Previous Rx's Medication Instructions Recorded Loperamide [Imodium] 2 mg PO ONCE PRN #16 capsule 10/03/22 Allergies Allergy/AdvReac Type Severity Reaction Status Date / Time Penicillins Allergy Unknown Verified 10/03/22 14:23 Childhood Review of Systems ROS Statement: Those systems with pertinent positive or pertinent negative responses have been documented in the HPI. ROS Other: All systems not noted in ROS Statement are negative. Past Medical History Past Medical History: CVA/TIA Additional Past Medical History / Comment(s): migraines, stroke in 2020 History of Any Multi-Drug Resistant Organisms: MRSA Date of last positivie culture/infection: 07/27/18 MDRO Source:: AXILLA Past Surgical History: Cholecystectomy Past Psychological History: No Psychological Hx Reported Smoking Status: Current every day smoker Past Alcohol Use History: Rare Past Drug Use History: Marijuana - Past Family History Mother Family Medical History: CVA/TIA, Liver Disease Father Family Medical History: Myocardial Infarction ([place]) General Exam Limitations: no limitations General appearance: alert, in no apparent distress Head exam: Present: atraumatic, normocephalic Eye exam: Present: normal appearance ENT exam: Present: mucous membranes moist Respiratory exam: Present: normal lung sounds bilaterally Cardiovascular Exam: Present: regular rate, normal rhythm GI/Abdominal exam: Present: soft, hyperactive bowel sounds (Nontender to palpation. No rebound guarding or rigidity) Neurological exam: Present: alert, oriented X3 Psychiatric exam: Present: normal affect, normal mood Skin exam: Present: warm Course Vital Signs 10/03/22 13:38 Temperature 97.9 F Pulse Rate 95 Respiratory 20 Rate Blood Pressure 158/90 O2 Sat by Pulse 96 Oximetry Medical Decision Making - Medical Decision Making Was pt. sent in by a medical professional or institution (JOSELIN Castellanos, ATTENDING PATHOLOGIST, urgent care, hospital, or jail...) When possible be specific @ -No Did you speak to anyone other than the patient for history (EMS, parent, family, police, friend...)? What history was obtained from this source @ -No Did you review nursing and triage notes (agree or disagree)? Why? @ -I reviewed and agree with nursing and triage notes Were old charts reviewed (outside hosp., previous admission, EMS record, old EKG, old radiological studies, urgent care reports/EKG's, jail records)? Report findings @ -No old charts were reviewed Differential Diagnosis (chest pain, altered mental status, abdominal pain women, abdominal pain men, vaginal bleeding, weakness, fever, dyspnea, syncope, headache, dizziness, GI bleed, back pain, seizure, CVA, palpatations, mental health, musculoskeletal)? @ -Differential Abdominal Pain Men: Appendicitis, cholecystitis, diverticulosis, ischemic bowel, pancreatitis, hepatitis, UTI, gastroenteritis, AAA, incarcerated hernia, bowel obstruction, constipation, inflammatory bowel, hepatitis, peptic ulcer disease, splenic infarction, perforated viscus, testicular torsion, this is not meant to be an a ll-inclusive list EKG interpreted by me (3pts min.). @ -As above X-rays interpreted by me (1pt min.). @ -None done CT interpreted by me (1pt min.). @ -None done U/S interpreted by me (1pt. min.). @ -None done What testing was considered but not performed or refused? (CT, X-rays, U/S, labs)? Why? @ -None What meds were considered but not given or refused? Why? @ -None Did you discuss the management of the patient with other professionals (professionals i.e. , PA, ATTENDING PATHOLOGIST, lab, RT, psych nurse, social services aide, dry wall plasterer, teacher, commissioned fire officer, bottle caser)? Give summary @ -No Was smoking cessation discussed for >3mins.? @ -No Was critical care preformed (if so, how long)? @ -No Were there social determinants of health that impacted care today? How? (Homelessness, low income, unemployed, alcoholism, drug addiction, transportation, low edu. Level, literacy, decrease access to med. care, usp, rehab)? @ -No Was there de-escalation of care discussed even if they declined (Discuss DNR or withdrawal of care, Hospice)? DNR status @ -No What co-morbidities impacted this encounter? (DM, HTN, Smoking, COPD, CAD, Cancer, CVA, ARF, Chemo, Hep., AIDS, mental health diagnosis, sleep apnea, morbid obesity)? @ -None Was patient admitted / discharged? Hospital course, mention meds given and route, prescriptions, significant lab abnormalities, going to OR and other pertinent info. @ -Discharged. Laboratory studies unremarkable for any acute findings. At this time, patient is not having any abdominal pain and is nontender to palpation. Patient will be sent home with prescription for loperamide. Vital signs stable at discharge. Undiagnosed new problem with uncertain prognosis? @ -No Drug Therapy requiring intensive monitoring for toxicity (Heparin, Nitro, Insulin, Cardizem)? @ -No Were any procedures done? @ -No Diagnosis/symptom? @ -Diarrhea Acute, or Chronic, or Acute on Chronic? @ -Acute Uncomplicated (without systemic symptoms) or Complicated (systemic symptoms)? @ -Uncomplicated Side effects of treatment? @ -No Exacerbation, Progression, or Severe Exacerbation? @ -No Poses a threat to life or bodily function? How? (Chest pain, [place], [place], pneumonia, PE, COPD, DKA, ARF, appy, cholecystitis, CVA, Diverticulitis, Homicidal, Suicidal, threat to staff... and all critical care pts) @ -No - Lab Data Result diagrams: 10/03/22 14:06 10/03/22 14:06 Lab Results 10/03/22 10/03/22 Range/Units 14:06 14:06 WBC 10.4 (3.8-10.6) k/uL RBC 5.17 (4.30-5.90) m/uL Hgb 15.1 (13.0-17.5) gm/dL Hct 44.2 (39.0-53.0) % MCV 85.5 (80.0-100.0) fL MCH 29.2 (25.0-35.0) pg MCHC 34.2 (31.0-37.0) g/dL RDW 13.4 (11.5-15.5) % Plt Count 255 (150-450) k/uL MPV 9.4 Neutrophils % 74 % Lymphocytes % 18 % Monocytes % 4 % Eosinophils % 2 % Basophils % 0 % Neutrophils # 7.7 (1.3-7.7) k/uL Lymphocytes # 1.9 (1.0-4.8) k/uL Monocytes # 0.4 (0-1.0) k/uL Eosinophils # 0.2 (0-0.7) k/uL Basophils # 0.0 (0-0.2) k/uL Sodium 139 (137-145) mmol/L Potassium 4.5 (3.5-5.1) mmol/L Chloride 104 (98-107) mmol/L Carbon Dioxide 26 (22-30) mmol/L Anion Gap 9 mmol/L BUN 10 (9-20) mg/dL Creatinine 0.83 (0.66-1.25) mg/dL Est GFR (CKD-EPI)AfAm >90 (>60 ml/min/1.73 sqM) Est GFR (CKD-EPI)NonAf >90 (>60 ml/min/1.73 sqM) Glucose 161 H (74-99) mg/dL Calcium 9.3 (8.4-10.2) mg/dL Total Bilirubin 0.6 (0.2-1.3) mg/dL AST 23 (17-59) U/L ALT 31 (4-49) U/L Alkaline Phosphatase 49 (38-126) U/L Total Protein 7.0 (6.3-8.2) g/dL Albumin 4.1 (3.5-5.0) g/dL Amylase 54 (30-110) U/L Lipase 86 (23-300) U/L Disposition Clinical Impression: Diarrhea Disposition: HOME SELF-CARE Condition: Good Additional Instructions: Please return to the Emergency Department if symptoms worsen or any other concerns. Prescriptions: Loperamide [Imodium] 2 mg PO ONCE PRN #16 capsule PRN Reason: Diarrhea Is patient prescribed a controlled substance at d/c from ED?: No Referrals: Giorgio Flores DO [Primary Care Provider] - 1-2 days Time of Disposition: 15:28
== END 2022-10-03 17:01 | disposition home or self-care (01) ==
LOC: EC 13:28
DX: R19.7 Diarrhea, unspecified (principal); Z86.73 Personal history of transient ischemic attack (TIA), and cerebral infarction without residual deficits; F17.200 Nicotine dependence, unspecified, uncomplicated; F12.90 Cannabis use, unspecified, uncomplicated; Z88.0 Allergy status to penicillin; Z90.49 Acquired absence of other specified parts of digestive tract; Z79.899 Other long term (current) drug therapy
CPT/HCPCS: 36415; 80053; 82150; 83690; 85025; 96360; 99284

== ENCOUNTER 2023-05-04 17:24 | Emergency (ER) | payer OTHER ==
[2023-05-04 18:02] LABS: Glucose,Whole Blood 456 mg/dL (70-110)
[2023-05-04 18:19] VITALS: BP 140/88; PULSE 90; RESP 16; TEMP 98.8
--- NOTE | 2023-05-04 18:48 | ED ---
Recheck HPI - General Chief Complaint: Recheck/Abnormal Lab/Rx Stated Complaint: high blood sugar Time Seen by Provider: 05/04/23 18:45 Source: patient, RN notes reviewed Mode of arrival: ambulatory Limitations: no limitations - History of Present Illness Initial Comments: This is a 32 year old nonbinary individual who presents to the emergency department for elevated blood sugar. Patient has a hx of diabetes and has noticed a headache and excessive urination over the last few days. MD Complaint: abnormal lab - Related Data Home Medications Medication Instructions Recorded Confirmed Ondansetron Odt [Zofran ODT] 8 mg PO DAILY PRN 09/05/19 10/03/22 Bictegrav/Emtricit/Tenofov Ala 1 tab PO DAILY 01/16/21 10/03/22 [Biktarvy 50-200-25 mg Tablet] LORazepam [Ativan] 1 mg PO DAILY PRN 06/18/21 10/03/22 Atorvastatin Calcium [Lipitor] 20 mg PO HS 08/13/21 10/03/22 Omeprazole [PriLOSEC] 20 mg PO DAILY 10/03/22 10/03/22 Previous Rx's Medication Instructions Recorded Loperamide [Imodium] 2 mg PO ONCE PRN #16 capsule 10/03/22 Allergies Allergy/AdvReac Type Severity Reaction Status Date / Time Penicillins Allergy Unknown Verified 05/04/23 18:01 Childhood Review of Systems ROS Statement: Those systems with pertinent positive or pertinent negative responses have been documented in the HPI. ROS Other: All systems not noted in ROS Statement are negative. Past Medical History Past Medical History: CVA/TIA, Diabetes Mellitus Additional Past Medical History / Comment(s): migraines, stroke in 2019 History of Any Multi-Drug Resistant Organisms: MRSA Date of last positivie culture/infection: 07/27/18 MDRO Source:: AXILLA Past Surgical History: Cholecystectomy Past Psychological History: No Psychological Hx Reported Smoking Status: Current every day smoker Past Alcohol Use History: Rare Past Drug Use History: Marijuana - Past Family History Mother Family Medical History: CVA/TIA, Liver Disease Father Family Medical History: Myocardial Infarction ([place]) General Exam - General Exam Comments Initial Comments: Visual Physical Exam Vital signs reviewed General: Well-appearing, nontoxic, no acute distress. Head: Normocephalic, atraumatic Eyes: PERRLA, EOMI ENT: Airway patent Chest: Nonlabored breathing Skin: No visual rash, normal skin tone Neuro: Alert and oriented 3 Musculoskeletal: No gross abnormalities Limitations: no limitations Course Vital Signs 05/04/23 17:57 Temperature 98.8 F Pulse Rate 90 Respiratory 16 Rate Blood Pressure 140/88 O2 Sat by Pulse 96 Oximetry Medical Decision Making - Medical Decision Making I performed the QuickNote portion of this chart. Signed Yolanda Starr PA-C. Patient eloped from the emergency department prior to completion and review of the ordered testing. - Lab Data Lab Results 05/04/23 Range/Units 18:00 POC Glucose (mg/dL) 456 H (70-110) mg/dL POC Glu Supervisor Roving Department ID Laura Chan Disposition Clinical Impression: Hyperglycemia, Diabetes mellitus Disposition: LEFT AGAINST MEDICAL ADVICE Referrals: Giorgio Flores DO [Primary Care Provider] - 1-2 days
== END 2023-05-04 19:12 | disposition left against medical advice (07) ==
LOC: EC 17:24
DX: E11.65 Type 2 diabetes mellitus with hyperglycemia (principal); F12.90 Cannabis use, unspecified, uncomplicated; F17.200 Nicotine dependence, unspecified, uncomplicated; Z79.899 Other long term (current) drug therapy; Z88.0 Allergy status to penicillin; Z53.29 Procedure and treatment not carried out because of patient's decision for other reasons
CPT/HCPCS: 36415; 99283

== ENCOUNTER 2023-08-25 09:57 | Emergency (ER) | payer OTHER ==
--- NOTE | 2023-08-25 10:16 | ED ---
Back Pain HPI - General Chief Complaint: Back Pain/Injury Stated Complaint: Fall Time Seen by Provider: 08/25/23 10:04 Source: patient, RN notes reviewed Limitations: no limitations - History of Present Illness Initial Comments: 33-year-old presenting with low back pain status post fall directly onto low back last night. Patient states they lost their balance walking down their porch steps and fell directly onto the low back. Patient states the pain is worse with movement. They are able to weight-bear. Denies numbness, tingling, weakness of lower extremities. Denies loss of bowel or bladder control. Denies hitting head or loss of consciousness. - Related Data Home Medications Medication Instructions Recorded Confirmed Ondansetron Odt [Zofran ODT] 8 mg PO DAILY PRN 09/05/19 10/03/22 Bictegrav/Emtricit/Tenofov Ala 1 tab PO DAILY 01/16/21 10/03/22 [Biktarvy 50-200-25 mg Tablet] LORazepam [Ativan] 1 mg PO DAILY PRN 06/18/21 10/03/22 Atorvastatin Calcium [Lipitor] 20 mg PO HS 08/13/21 10/03/22 Omeprazole [PriLOSEC] 20 mg PO DAILY 10/03/22 10/03/22 Previous Rx's Medication Instructions Recorded Loperamide [Imodium] 2 mg PO ONCE PRN #16 capsule 10/03/22 Lidocaine 5% Patch [Lidoderm 5% 1 patch TOPICAL DAILY PRN #7 patch 08/25/23 Patch] Naproxen [Naprosyn] 500 mg PO Q12HR PRN 15 Days #30 tab 08/25/23 methocarbamoL [Robaxin] 500 mg PO TID PRN #15 tab 08/25/23 Allergies Allergy/AdvReac Type Severity Reaction Status Date / Time Penicillins Allergy Unknown Verified 08/25/23 10:03 Childhood Review of Systems ROS Statement: Those systems with pertinent positive or pertinent negative responses have been documented in the HPI. ROS Other: All systems not noted in ROS Statement are negative. Past Medical History Past Medical History: CVA/TIA, Diabetes Mellitus Additional Past Medical History / Comment(s): migraines, stroke in 2020 History of Any Multi-Drug Resistant Organisms: MRSA Date of last positivie culture/infection: 07/27/18 MDRO Source:: [facility] Past Surgical History: Cholecystectomy Past Psychological History: No Psychological Hx Reported Smoking Status: Current every day smoker Past Alcohol Use History: Rare Past Drug Use History: Marijuana - Past Family History Mother Family Medical History: CVA/TIA, Liver Disease Father Family Medical History: Myocardial Infarction (MS) General Exam Limitations: no limitations General appearance: alert, in no apparent distress Head exam: Present: atraumatic, normocephalic, normal inspection Respiratory exam: Present: normal lung sounds bilaterally. Absent: respiratory distress, wheezes, rales, rhonchi, stridor Cardiovascular Exam: Present: regular rate, normal rhythm, normal heart sounds. Absent: systolic murmur, diastolic murmur, rubs, gallop, clicks Back exam: Present: normal inspection, full ROM, other (Full range of motion and strength of bilateral hips. No saddle anesthesia. Full sensation and dorsalis pedis pulses bilaterally.). Absent: tenderness, CVA tenderness (R), CVA tenderness (L), muscle spasm, paraspinal tenderness Neurological exam: Present: alert, oriented X3 Psychiatric exam: Present: normal affect, normal mood Skin exam: Present: warm, dry, intact, normal color. Absent: rash Course Vital Signs 08/25/23 09:59 Temperature 97.8 F Pulse Rate 100 Respiratory 18 Rate Blood Pressure 140/88 O2 Sat by Pulse 97 Oximetry Medical Decision Making - Medical Decision Making Was pt. sent in by a medical professional or institution (JOSELIN Castellanos, [employer], urgent care, hospital, or usp...) When possible be specific @ -No Did you speak to anyone other than the patient for history (EMS, parent, family, police, friend...)? What history was obtained from this source @ -No Did you review nursing and triage notes (agree or disagree)? Why? @ -I reviewed and agree with nursing and triage notes Were old charts reviewed (outside hosp., previous admission, EMS record, old EKG, old radiological studies, urgent care reports/EKG's, usp records)? Report findings @ -No old charts were reviewed Differential Diagnosis (chest pain, altered mental status, abdominal pain women, abdominal pain men, vaginal bleeding, weakness, fever, dyspnea, syncope, headache, dizziness, GI bleed, back pain, seizure, CVA, palpatations, mental health, musculoskeletal)? @ -Differential Musculoskeletal Muscular strain, contusion, ligament sprain, fracture, arthritis, septic arthritis, bursitis, cellulitis, muscle spasm, nerve compression, DVT, arterial occlusion, herpes zoster, electrolyte abnormality, tumor.... This is not meant to be in all inclusive list EKG interpreted by me (3pts min.). @ -None X-rays interpreted by me (1pt min.). @ -Lumbar x-ray revealed no acute process or fracture. CT interpreted by me (1pt min.). @ -None done U/S interpreted by me (1pt. min.). @ -None done What testing was considered but not performed or refused? (CT, X-rays, U/S, labs)? Why? @ -None What meds were considered but not given or refused? Why? @ -None Did you discuss the management of the patient with other professionals (professionals i.e. , PA, [employer], lab, RT, psych nurse, social media coordinator, talent manager, teacher, chief information security officer, case fitter)? Give summary @ -No Was smoking cessation discussed for >3mins.? @ -No Was critical care preformed (if so, how long)? @ -No Were there social determinants of health that impacted care today? How? (Homelessness, low income, unemployed, alcoholism, drug addiction, transportation, low edu. Level, literacy, decrease access to med. care, custodial, rehab)? @ -No Was there de-escalation of care discussed even if they declined (Discuss DNR or withdrawal of care, Hospice)? DNR status @ -No What co-morbidities impacted this encounter? (DM, HTN, Smoking, COPD, CAD, Cancer, CVA, ARF, Chemo, Hep., AIDS, mental health diagnosis, sleep apnea, morbid obesity)? @ -None Was patient admitted / discharged? Hospital course, mention meds given and route, prescriptions, significant lab abnormalities, going to OR and other pertinent info. @ -Patient was discharged. Patient was seen and evaluated for low back pain status post fall 1 day ago. There are no red flag symptoms. Patient is neurovascularly intact. X-ray of lumbar spine reveals no acute process. Discussed diagnosis of low back strain. Supportive care discussed. Return symptoms discussed. Prescribed naproxen, lidocaine patches, Robaxin for pain. Patient discharged in stable condition. Case discussed with Dr. Jimenez. Undiagnosed new problem with uncertain prognosis? @ -No Drug Therapy requiring intensive monitoring for toxicity (Heparin, Nitro, Insulin, Cardizem)? @ -No Were any procedures done? @ -No Diagnosis/symptom? @ -Low back strain Acute, or Chronic, or Acute on Chronic? @ -Acute Uncomplicated (without systemic symptoms) or Complicated (systemic symptoms)? @ -Uncomplicated Side effects of treatment? @ -No Exacerbation, Progression, or Severe Exacerbation? @ -No Poses a threat to life or bodily function? How? (Chest pain, USA, MS, pneumonia, PE, COPD, DKA, ARF, appy, cholecystitis, CVA, Diverticulitis, Homicidal, Suicidal, threat to staff... and all critical care pts) @ -No Disposition Clinical Impression: Strain of lumbar region Disposition: HOME SELF-CARE Condition: Stable Instructions (If sedation given, give patient instructions): Acute Low Back Pain (ED) Additional Instructions: Please return to the Emergency Department if symptoms worsen or any other concerns. Prescriptions: Lidocaine 5% Patch [Lidoderm 5% Patch] 1 patch TOPICAL DAILY PRN #7 patch PRN Reason: Pain Naproxen [Naprosyn] 500 mg PO Q12HR PRN 15 Days #30 tab PRN Reason: Pain methocarbamoL [Robaxin] 500 mg PO TID PRN #15 tab PRN Reason: muscle spasms Is patient prescribed a controlled substance at d/c from ED?: No Referrals: Giorgio Flores DO [Primary Care Provider] - 1-2 days Time of Disposition: 10:50
[2023-08-25 10:21] VITALS: BP 140/88; PULSE 100; TEMP 97.8
--- NOTE | 2023-08-25 10:39 | XR ---
EXAM TYPE: LUMBAR SPINE X RAY SERIES COMPARISON: NONE HISTORY: Pain TECHNIQUE: 4 views are submitted. FINDINGS: Alignment is anatomic. The pedicles are intact. The transverse processes are intact. There is no s pondylolysis or spondylolisthesis. IMPRESSION: 1. No acute process.
[2023-08-25 11:07] VITALS: RESP 16
== END 2023-08-25 11:06 | disposition home or self-care (01) ==
LOC: EC 09:57
DX: S39.012A Strain of muscle, fascia and tendon of lower back, initial encounter (principal); F17.200 Nicotine dependence, unspecified, uncomplicated; Z88.0 Allergy status to penicillin; Z86.73 Personal history of transient ischemic attack (TIA), and cerebral infarction without residual deficits; W10.9XXA Fall (on) (from) unspecified stairs and steps, initial encounter
CPT/HCPCS: 72100; 99283